=== PATIENT | male | born 1945 | race Caucasian/White ===

== ENCOUNTER → 2018-05-13 08:45 | Outpatient (CLI) | payer MEDICARE, SELFPAY ==
[2018-05-13 09:37] LABS: Appearance Urine UA CLEAR; Bilirubin Urine UA NEGATIVE (NEGATIVE); Color Urine UA YELLOW; Glucose Urine UA NEGATIVE (Negative); Ketones Urine UA NEGATIVE (NEGATIVE); Leukocyte Esterase Urine UA NEGATIVE (NEGATIVE); Nitrite Urine UA NEGATIVE (Negative); Occult Blood Urine UA TRACE-INTACT (Negative); Protein Urine UA NEGATIVE (Negative); Specific Gravity Urine UA >=1.030 (1.000-1.035); Urobilinogen Urine UA 0.2 E.U./dL (0.2)
[2018-05-13 10:02] LABS: Alanine Aminotransferase 45 IU/L (21-72); Albumin 4.3 g/dL (3.5-5.0); Albumin Globulin Ratio 1.6 (1.0-2.8); Alkaline Phosphatase 59 U/L (38-126); Aspartate Aminotransferase 20 IU/L (17-59); Bilirubin Total 1.2 mg/dL (0.2-1.3); Blood Urea Nitrogen 20 mg/dL (9-20); Calcium 9.3 mg/dL (8.4-10.2); Carbon Dioxide 26 mmol/L (22-32); Chloride 103 mmol/L (98-107); Cholesterol 144 mg/dL (140-199); Estimated Glomerular Filt Rate > 60.0 mL/min (>60); Globulin 2.7 g/dL (1.7-4.1); Glucose 137 mg/dL (80-110); HDL Cholesterol 39 mg/dL (40-60); HEMOLYSIS < 15 (0-50); LDL Cholesterol Calculated 51 mg/dL (<100); Sodium 139 mmol/L (137-145); Triglycerides 269 mg/dL (35-150)
[2018-05-13 10:29] LABS: Thyroid Stimulating Hormone 1.27 uIU/mL (0.47-4.68)
== END ==
PROVIDERS: PCP Family Medicine; Visit Provider Family Medicine
DX: I10 Essential (primary) hypertension (principal); E78.5 Hyperlipidemia, unspecified; E11.9 Type 2 diabetes mellitus without complications; Z12.5 Encounter for screening for malignant neoplasm of prostate
CPT/HCPCS: 36415; 80053; 80061; 81003; 83036; 84153; 84443

== ENCOUNTER → 2019-01-24 10:43 | Outpatient (CLI) | payer MEDICARE, SELFPAY ==
[2019-01-24 11:11] LABS: Add Manual Diff / Slide Review NO; Basophils Absolute Auto 100 /uL (0-100); Basophils Percent Auto 1.4 % (0-2); Eosinophils Absolute Auto 100 /uL (0-450); Hematocrit 45.7 % (41-53); Hemoglobin 15.9 g/dL (13.5-17.5); Lymphocytes Absolute Auto 1600 /uL (1100-4500); Lymphocytes Percent Auto 35.1 % (25-40); Mean Corpuscular HGB Conc 34.8 % (30-36); Mean Corpuscular Hemoglobin 31.9 PG (26-34); Mean Corpuscular Volume 91.9 fL (80-100); Monocytes Absolute Auto 300 /uL (0-900); Monocytes Percent Auto 7.6 % (3-14); Neutrophils Absolute Auto 2400 /uL (1500-7000); Neutrophils Percent Auto 52.9 % (50-75); Platelet Count 151 X10^3/uL (150-400); Red Blood Cell Count 4.98 X10^6/uL (4.5-5.9); Red Cell Distribution Width 12.9 % (11.6-14.8); White Blood Cell Count 4.6 X10^3/uL (4.5-11.0)
[2019-01-24 11:25] LABS: Alanine Aminotransferase 38 IU/L (21-72); Albumin 4.4 g/dL (3.5-5.0); Albumin Globulin Ratio 1.5 (1.0-2.8); Alkaline Phosphatase 66 U/L (38-126); Aspartate Aminotransferase 27 IU/L (17-59); BUN Creatinine Ratio 17.5 (6-22); Bilirubin Total 1.1 mg/dL (0.2-1.3); Blood Urea Nitrogen 21 mg/dL (9-20); Calcium 9.5 mg/dL (8.4-10.2); Carbon Dioxide 22 mmol/L (22-32); Chloride 104 mmol/L (98-107); Cholesterol 150 mg/dL (140-199); Estimated Glomerular Filt Rate 59.5 mL/min (>60); Glucose 151 mg/dL (80-110); HDL Cholesterol 39 mg/dL (40-60); HEMOLYSIS < 15 (0-50); LDL Cholesterol Calculated 55 mg/dL (<100); Potassium 4.3 mmol/L (3.4-5.1); Sodium 139 mmol/L (137-145); Total Protein 7.4 g/dL (6.3-8.2); Triglycerides 278 mg/dL (35-150)
== END ==
PROVIDERS: PCP Family Medicine; Visit Provider Family Medicine
DX: E11.9 Type 2 diabetes mellitus without complications (principal); E78.5 Hyperlipidemia, unspecified; I10 Essential (primary) hypertension
CPT/HCPCS: 36415; 80053; 80061; 83036; 85025

== ENCOUNTER → 2019-06-12 12:00 | Outpatient (CLI) | payer MEDICARE, SELFPAY ==
[2019-06-12 12:55] LABS: Add Manual Diff / Slide Review NO; Basophils Absolute Auto 100 /uL (0-100); Basophils Percent Auto 1.1 % (0-2); Eosinophils Absolute Auto 100 /uL (0-450); Eosinophils Percent Auto 2.7 % (2-4); Hematocrit 43.7 % (41-53); Hemoglobin 15.2 g/dL (13.5-17.5); Lymphocytes Absolute Auto 1500 /uL (1100-4500); Lymphocytes Percent Auto 32.1 % (25-40); Mean Corpuscular HGB Conc 34.7 % (30-36); Mean Corpuscular Hemoglobin 31.8 PG (26-34); Mean Corpuscular Volume 91.5 fL (80-100); Monocytes Absolute Auto 400 /uL (0-900); Monocytes Percent Auto 9.1 % (3-14); Neutrophils Absolute Auto 2500 /uL (1500-7000); Platelet Count 143 X10^3/uL (150-400); Red Blood Cell Count 4.78 X10^6/uL (4.5-5.9); Red Cell Distribution Width 12.9 % (11.6-14.8); White Blood Cell Count 4.6 X10^3/uL (4.5-11.0)
[2019-06-12 13:22] LABS: Alanine Aminotransferase 29 IU/L (<50); Albumin 4.5 g/dL (3.5-5.0); Albumin Globulin Ratio 1.5 (1.0-2.8); Alkaline Phosphatase 61 U/L (38-126); Aspartate Aminotransferase 25 IU/L (17-59); BUN Creatinine Ratio 16.4 (6-22); Blood Urea Nitrogen 18 mg/dL (9-20); Calcium 9.6 mg/dL (8.4-10.2); Carbon Dioxide 26 mmol/L (22-32); Chloride 107 mmol/L (98-107); Cholesterol 145 mg/dL (140-199); Estimated Glomerular Filt Rate > 60.0 mL/min (>60); Globulin 3.1 g/dL (1.7-4.1); Glucose 130 mg/dL (80-110); HDL Cholesterol 38 mg/dL (40-60); HEMOLYSIS < 15 (0-50); LDL Cholesterol Calculated 64 mg/dL (<100); Potassium 4.5 mmol/L (3.4-5.1); Sodium 143 mmol/L (137-145); Total Protein 7.6 g/dL (6.3-8.2); Triglycerides 217 mg/dL (35-150)
[2019-06-12 13:45] LABS: Hemoglobin A1C% w Est Avg Glu 6.3 % (4.0-6.0)
== END ==
PROVIDERS: PCP Family Medicine; Referring Provider Family Medicine; Visit Provider Family Medicine
DX: E11.9 Type 2 diabetes mellitus without complications (principal); E78.5 Hyperlipidemia, unspecified; I10 Essential (primary) hypertension
CPT/HCPCS: 36415; 80053; 80061; 83036; 85025

== ENCOUNTER → 2019-10-26 10:08 | Outpatient (CLI) | payer MEDICARE, SELFPAY ==
[2019-10-26 11:29] LABS: Add Manual Diff / Slide Review NO; Basophils Absolute Auto 100 /uL (0-100); Basophils Percent Auto 1.7 % (0-2); Eosinophils Absolute Auto 200 /uL (0-450); Eosinophils Percent Auto 3.6 % (2-4); Hematocrit 45.3 % (41-53); Hemoglobin 15.4 g/dL (13.5-17.5); Lymphocytes Absolute Auto 1900 /uL (1100-4500); Lymphocytes Percent Auto 32.7 % (25-40); Mean Corpuscular HGB Conc 33.9 % (30-36); Mean Corpuscular Hemoglobin 31.4 PG (26-34); Mean Corpuscular Volume 92.6 fL (80-100); Monocytes Absolute Auto 500 /uL (0-900); Monocytes Percent Auto 9.5 % (3-14); Neutrophils Absolute Auto 3000 /uL (1500-7000); Neutrophils Percent Auto 52.5 % (50-75); Platelet Count 158 X10^3/uL (150-400); Red Blood Cell Count 4.89 X10^6/uL (4.5-5.9); White Blood Cell Count 5.7 X10^3/uL (4.5-11.0)
[2019-10-26 11:30] LABS: Hemoglobin A1C% w Est Avg Glu 6.7 % (4.0-6.0)
[2019-10-26 11:56] LABS: Creatinine Urine Random 262.8 mg/dL
[2019-10-26 12:00] LABS: Alanine Aminotransferase 30 IU/L (<50); Albumin 4.4 g/dL (3.5-5.0); Albumin Globulin Ratio 1.5 (1.0-2.8); Alkaline Phosphatase 62 U/L (38-126); Aspartate Aminotransferase 24 IU/L (17-59); BUN Creatinine Ratio 20.8 (6-22); Bilirubin Total 0.9 mg/dL (0.2-1.3); Blood Urea Nitrogen 26 mg/dL (9-20); Calcium 9.6 mg/dL (8.4-10.2); Carbon Dioxide 26 mmol/L (22-32); Chloride 102 mmol/L (98-107); Cholesterol 177 mg/dL (140-199); Estimated Glomerular Filt Rate 56.8 mL/min (>60); Globulin 2.9 g/dL (1.7-4.1); Glucose 164 mg/dL (80-110); HDL Cholesterol 35 mg/dL (40-60); HEMOLYSIS < 15 (0-50); LDL Cholesterol Calculated 68 mg/dL (<100); Potassium 4.4 mmol/L (3.4-5.1); Sodium 137 mmol/L (137-145); Total Protein 7.3 g/dL (6.3-8.2); Triglycerides 368 mg/dL (35-150)
[2019-10-26 12:00] LABS: Microalbumi Creatinin Ratio Ur 3.8 ug/mg CR (<30)
[2019-10-26 12:56] LABS: Thyroid Stimulating Hormone 1.44 uIU/mL (0.47-4.68)
== END ==
PROVIDERS: PCP Family Medicine; Referring Provider Family Medicine; Visit Provider Family Medicine
DX: Z12.11 Encounter for screening for malignant neoplasm of colon (principal); Z13.29 Encounter for screening for other suspected endocrine disorder; E11.9 Type 2 diabetes mellitus without complications; E78.5 Hyperlipidemia, unspecified; I10 Essential (primary) hypertension
CPT/HCPCS: 36415; 80053; 80061; 82043; 82570; 83036; 84443; 85025

== ENCOUNTER → 2020-02-06 10:08 | Outpatient (CLI) | payer MEDICARE, SELFPAY ==
[2020-02-06 11:55] LABS: Add Manual Diff / Slide Review NO; Basophils Absolute Auto 100 /uL (0-100); Basophils Percent Auto 1.3 % (0-2); Eosinophils Absolute Auto 200 /uL (0-450); Eosinophils Percent Auto 4.5 % (2-4); Hematocrit 43.8 % (41-53); Hemoglobin 15.1 g/dL (13.5-17.5); Lymphocytes Absolute Auto 1400 /uL (1100-4500); Lymphocytes Percent Auto 25.8 % (25-40); Mean Corpuscular HGB Conc 34.5 % (30-36); Mean Corpuscular Hemoglobin 31.7 PG (26-34); Mean Corpuscular Volume 91.8 fL (80-100); Monocytes Absolute Auto 500 /uL (0-900); Monocytes Percent Auto 9.4 % (3-14); Neutrophils Absolute Auto 3100 /uL (1500-7000); Platelet Count 152 X10^3/uL (150-400); Red Blood Cell Count 4.77 X10^6/uL (4.5-5.9); White Blood Cell Count 5.3 X10^3/uL (4.5-11.0)
[2020-02-06 12:25] LABS: BUN Creatinine Ratio 16.8 (6-22); Blood Urea Nitrogen 18 mg/dL (9-20); Calcium 8.9 mg/dL (8.4-10.2); Carbon Dioxide 27 mmol/L (22-32); Chloride 106 mmol/L (98-107); Estimated Glomerular Filt Rate > 60.0 mL/min (>60); Glucose 148 mg/dL (80-110); HEMOLYSIS < 15 (0-50); Magnesium 2.2 mg/dL (1.6-2.3); Potassium 4.3 mmol/L (3.4-5.1); Sodium 139 mmol/L (137-145)
== END ==
PROVIDERS: PCP Family Medicine; Referring Provider Nurse Practitioner; Visit Provider Nurse Practitioner
DX: I10 Essential (primary) hypertension (principal); I49.9 Cardiac arrhythmia, unspecified; E78.5 Hyperlipidemia, unspecified; I49.3 Ventricular premature depolarization; R55 Syncope and collapse
CPT/HCPCS: 36415; 80048; 83735; 85025

== ENCOUNTER → 2020-03-14 13:11 | Outpatient (CLI) | payer MEDICARE, SELFPAY ==
[2020-03-14 14:01] LABS: COVID19 -Nasal RAPID Negative (Negative)
== END ==
PROVIDERS: PCP Family Medicine; Visit Provider Physician Assistant
DX: Z11.59 Encounter for screening for other viral diseases (principal)
CPT/HCPCS: 87635

== ENCOUNTER → 2020-03-16 09:02 | Outpatient (CLI) | payer MEDICARE, SELFPAY ==
--- NOTE | 2020-03-16 | DI.ECHO.S_ITS ---
[facility] +---------+ [facility] +---------+ : : [address] : : : : [id number] : : : : Phone: [phone]+ Echocardiogram Report + + :Name: TACHO JOHNSON Study Date: 03/16/2020 Height: 70 in : :[facility] Weight: 224 lb: : Gender: Male BSA: 2.2 m2 : :: 1945 Age: 74 yrs : :Reason For Study: HYPERTENSION : :Ordering Physician: JUAN, : :MADELINE BOLIVAR Performed By: Kaylee Hatch : :Referring: MADELINE MARTINEZ : + + Interpretation Summary The patient was in normal sinus rhythm during the exam. The patient had frequent PVCs during the exam. Intermittent run of nonsustained ventricular tachycardia. The left ventricle is normal in size and wall thickness. The ejection fraction is estimated to be 50-55%. There is a significant dyssynchronous contraction pattern, consistent with a conduction abnormality. The right ventricle is grossly normal size. Right ventricular systolic function is at the lower limits of normal. No significant valvular pathology seen. Procedure: A two-dimensional transthoracic echocardiogram with color flow and Doppler was performed. The study quality was technically adequate. Comparison is made with the echocardiogram of 08/12/2011. The patient had frequent PVCs during the exam. The heart rate ranged between 69-78 bpm during the study. The patient was in normal sinus rhythm during the exam. Intermittent run of nonsustained ventricular tachycardia. Left Ventricle: The left ventricle is normal in size and wall thickness. There is no thrombus. The ejection fraction is estimated to be 50-55%. There is a significant dyssynchronous contraction pattern, consistent with a conduction abnormality. Diastolic parameters suggest a relaxation abnormality of the left ventricle, consistent with probable normal filling pressures. Right Ventricle: The right ventricle is grossly normal size. Right ventricular systolic function is at the lower limits of normal. Atria: The left atrial size is normal. Right atrial size is normal. There is no Doppler evidence for an interatrial shunt. Mitral Valve: The mitral valve is normal in structure and function. There is trace mitral regurgitation. Aortic Valve: The aortic valve is trileaflet. The aortic valve opens well. There is no aortic valve stenosis. No aortic regurgitation is present. Tricuspid Valve: The tricuspid valve is normal in structure and function. Pulmonary artery pressures cannot be estimated because of the lack of a measurable TR jet velocity but the IVC suggests a CVP of around 8 mmHg. There is a trace or physiologic amount of tricuspid regurgitation. Pulmonic Valve: The pulmonic valve is not well seen, but is grossly normal. There is trace pulmonic regurgitation. Great Vessels: The aortic root is normal size. The ascending aorta is at the upper limits of normal in size. The IVC is dilated (diameter is greater than 2.1 cm) yet it collapses greater than 50% with a sniff. This suggests a right atrial pressure of 8 mm Hg. Pericardium/ Pleura There is no pericardial effusion. There is no pleural effusion. MMode/2D Measurements & Calculations LVIDd: 5.2 cm LVOT diam: 2.5 cm LVIDs: 3.7 cm Ao root diam: 4.0 cm FS: 29.7 % asc Aorta Diam: 3.7 cm EPSS: 1.2 cm IVSd: 1.00 cm LVPWd: 1.3 cm LV rankin. diameter/BSA (cm/m^2): 2.4 LV sys. diameter/BSA (cm/m^2): 1.7 LA A2 area: 22.1 cm2 RA long axis: 5.6 cm LA A4 area: 20.9 cm2 RA area: 19.5 cm2 LA length (vol): 5.9 cm RA vol: 57.4 ml LA vol: 67.2 ml RA : 26.2 ml/m2 LA vol index: 30.7 ml/m2 IVC diam: 2.2 cm RVD1 (basal): 3.3 cm TAPSE: 1.7 cm Doppler Measurements & Calculations Ao V2 max: 146.0 cm/sec MV E max leonidas: 56.5 cm/sec Ao V2 mean: 87.4 cm/sec MV A max leonidas: 93.2 cm/sec Ao max P.6 mmHg MV E/A: 0.61 Ao mean P.7 mmHg Med Peak E' Leonidas: 6.9 cm/sec Ao V2 VTI: 31.6 cm E/E' med: 8.2 Lat Peak E' Leonidas: 8.3 cm/sec E/E' lat: 6.8 E/e' average: 7.5 MV dec time: 0.27 sec TR max leonidas: 214.0 cm/sec TR max P.3 mmHg PA V2 max: 64.5 cm/sec PA V2 mean: 41.3 cm/sec PA mean P.81 mmHg PA pr(Accel): 7.1 mmHg Reading Physician:06:27 PM
--- NOTE | 2020-03-16 20:42 | DI.NM.S_ITS ---
DATE OF SERVICE: 03/16/2020 PROCEDURE: Exercise perfusion study. INDICATIONS: PVCs. Hypertension. RADIOPHARMACEUTICAL: 27.1 millicurie technetium-99m Myoview IV was injected at rest and 14.6 millicurie technetium-99m Myoview IV was injected at rest. CARDIAC STRESS: The patient underwent exercise perfusion study under the supervision of attending staff. He walked on Jagdish protocol for 4 minutes 32 seconds, achieved normal blood pressure response and maximum target heart rate 121 percent. Baseline rhythm was sinus with frequent PVCs, including trigeminy pattern. During exercise, the patient developed frequent nonsustained ventricular tachycardia up to 9 beats, hence, exercise stress test was discontinued. He also had chest pressure on a scale of 1-10, 2 in intensity in early recovery, which got resolved around 3 minutes in the recovery. There were no obvious ischemic EKG changes. No syncope or dizziness. RAW DATA: There is increased subdiaphragmatic activity. GATED STUDY: LV ejection fraction 49 percent without any obvious regional wall motion abnormalities. Stress end-diastolic volume 115 mL. Resting end- diastolic volume was not accurate. Lung/heart ratio 0.35, which is within normal limits. The patient achieved 7 METs of workload. PERFUSION SCAN: Stress supine, resting supine and stress prone images were compared to each other. Stress supine and resting supine images revealed a small to moderate size mildly decreased perfusion of inferior wall extending into the inferoapex and distal inferolateral wall. During prone images, the above-mentioned defects got significantly improved. However, remaining have small perfusion defect in the distal inferolateral wall. No obvious reversible ischemia. CONCLUSION: There is no obvious reversible ischemic ischemia. There is significant diaphragmatic tissue attenuation artifact, which got resolved during prone images. However, prone images remaining have a small area of perfusion defect in the distal inferolateral wall. This could be due to persistent tissue attenuation artifact, however, a small distal inferolateral infarction cannot be ruled out. The patient has frequent nonsustained ventricular tachycardia during exercise and there were monomorphic. The patient had a perfusion study in July,, at that time there was complete resolution of inferior wall defect. Lisandro Smith - [place] doc#: [id number]/job#: [id number] dd: 03/16/2020 17:33:00 dt: 03/16/2020 20:20:00 DICTATING MD/COPIES TO: Pratima Darling MD; Vaishali Lopez M.D. COPIES MNE: ANTHONY;
== END ==
PROVIDERS: PCP Family Medicine; Referring Provider Nurse Practitioner; Visit Provider Nurse Practitioner
DX: I49.3 Ventricular premature depolarization (principal); I10 Essential (primary) hypertension; E78.5 Hyperlipidemia, unspecified; R55 Syncope and collapse
CPT/HCPCS: 78452; 93017; 93306; A9502

== ENCOUNTER → 2020-03-25 08:36 | Outpatient (CLI) | payer MEDICARE, SELFPAY ==
[2020-03-25 09:16] LABS: Add Manual Diff / Slide Review NO; Basophils Absolute Auto 100 /uL (0-100); Basophils Percent Auto 0.7 % (0-2); Eosinophils Absolute Auto 200 /uL (0-450); Eosinophils Percent Auto 1.8 % (2-4); Hematocrit 41.9 % (41-53); Hemoglobin 14.4 g/dL (13.5-17.5); Lymphocytes Absolute Auto 1400 /uL (1100-4500); Lymphocytes Percent Auto 15.7 % (25-40); Mean Corpuscular HGB Conc 34.4 % (30-36); Mean Corpuscular Hemoglobin 31.9 PG (26-34); Mean Corpuscular Volume 92.9 fL (80-100); Monocytes Absolute Auto 800 /uL (0-900); Monocytes Percent Auto 8.8 % (3-14); Neutrophils Absolute Auto 6500 /uL (1500-7000); Platelet Count 141 X10^3/uL (150-400); Red Blood Cell Count 4.52 X10^6/uL (4.5-5.9); Red Cell Distribution Width 12.7 % (11.6-14.8); White Blood Cell Count 8.9 X10^3/uL (4.5-11.0)
[2020-03-25 09:26] LABS: Prothrombin Time 11.8 SECONDS (10.1-12.7)
[2020-03-25 10:10] LABS: Thyroid Stimulating Hormone 0.929 uIU/mL (0.47-4.68)
== END ==
PROVIDERS: PCP Family Medicine; Referring Provider Nurse Practitioner; Visit Provider Nurse Practitioner
DX: I49.3 Ventricular premature depolarization (principal); I10 Essential (primary) hypertension
CPT/HCPCS: 36415; 84443; 85025; 85610

== ENCOUNTER → 2020-04-06 10:59 | Outpatient (CLI) | payer MEDICARE, SELFPAY ==
[2020-04-06 12:27] LABS: COVID19 -Nasal RAPID Negative (Negative)
== END ==
PROVIDERS: PCP Family Medicine; Visit Provider Physician Assistant
DX: Z01.812 Encounter for preprocedural laboratory examination (principal); Z20.828 Contact with and (suspected) exposure to other viral communicable diseases
CPT/HCPCS: 87635; C9803

== ENCOUNTER → 2020-05-19 12:22 | Outpatient (CLI) | payer MEDICARE, SELFPAY ==
[2020-05-19] MEDS: COVID-19 VACC #1, MRNA(MOD) 100 MCG/0.5 ML VIAL IM (12:26)
--- OUTSIDE RECORDS SUMMARY | 2020-05-31 16:34 | XMS_ITS | Referral Summary ---
:1945 Author Organization [facility] Address [address] [place] [id number] Care Team Providers Name Role Phone Ramirez, T DO Primary Care Provider Reason for Referral Consultation (Routine) Status Reason Specialty Diagnoses / Referred By Referred To Procedures Contact Contact Closed Specialty Sleep Medicine Diagnoses NIESHA (obstructive sleep apnea) [facility] Services OSMEL Sarmiento [address] [place] [address] [address] [id number] [place], [place] Phone: [phone] Diagnostic Imaging (Routine) Status Reason Specialty Diagnoses / Referred By Referred To Procedures Contact Contact Closed Specialty Diagnoses Essential hypertension Hyperlipidemia, unspecified hyperlipidemia type PVC (premature ventricular contraction) Near syncope [facility] Services Required Procedures NM CARDIAC STRESS TEST EXERCISE OSMEL Sarmiento [address] [place] [address] [address] [id number] [place], [place] Phone: [phone] Diagnostic Imaging (Routine) Status Reason Specialty Diagnoses / Procedures Referred By Trena white To Contact Contact Closed Diagnoses Essential hypertension Hyperlipidemia, unspecified hyperlipidemia type PVC (premature ventricular contraction) Near syncope [facility] Procedures ECHOCARDIOGRAM OSMEL CAT [address] [place] [address] [address] [id number] [place], [place] Phone: [phone] (Routine) Status Reason Specialty Diagnoses / Referred By Referred To Procedures Contact Contact Incomplete Diagnoses PVC (premature ventricular contraction) Madeline Martinez Procedures ZIO Patch - 14 Day Placed During Visit OSMEL Pop [address] [place] [place] [address] [place] [address] Reason for Visit Reason Comments Hyperlipidemia Hypertension Dizziness Palpitations Encounter Details Date Type Department Care Team Description 02/02/2020 Office Visit [facility] Christian Le MD [address] [place] [address] [address] [place] [address] Dizziness (Primary Dx); Clinics Cardiology Pratima Darling MD [facility] [address] [place] [address] [address] [place] [address] PVC (premature ventricular contraction); [facility] Essential hypertension; [address], [address] Hyperli pidemia, unspecified hyperlipidemia type; D Near syncope; [facility] [place] Mixed hyperlip idemia; [address] NIESHA (obstructive sleep apnea ); [phone] Palpitations Allergies No Known Allergiesdocumented as of this encounter (statuses as of 02/15/2020) Medications Medication Sig Dispensed Refills Start Date End Date Status gabapentin (NEURONTIN) Take 600 mg by 0 Active 600 mg tablet mouth daily simvastatin (ZOCOR) 20 0 12/02/2019 Active mg tablet tamsulosin (FLOMAX) Take 0.4 mg by 0 12/02/2019 Active 0.4 mg capsule mouth daily HYDROcodone-acetaminop Take 0.5 tablets 0 10/26/2014 Active hen (NORCO) 5-325 mg by mouth as needed lisinopriL (PRINIVIL) 5 mg daily 0 01/23/2020 Active 5 mg tablet metoprolol succinate 25 mg daily 0 10/26/2019 Active XL (TOPROL-XL) 25 mg 24 hr tablet acetaminophen/diphenhy Take 1 tablet by 0 Active dramine (TYLENOL PM mouth nightly EXTRA STRENGTH ORAL) documented as of this encounter (statuses as of 02/15/2020) Active Problems Problem Noted Date Mixed hyperlipidemia 02/02/2020 Essential hypertension 02/02/2020 PVC (premature ventricular contraction) 02/02/2020 Near syncope 02/02/2020 Dizziness 02/02/2020 Sleep apnea 02/02/2020 documented as of this encounter (statuses as of 02/15/2020) Social History Tobacco Use Types Packs/Day Years Used Date Former Smoker 05 21 1966 - 1994 Smokeless Tobacco: Never Used Alcohol Use Drinks/Week oz/Week Comments Yes Alcohol Habits Answer Date Recorded How often do you have a drink containing alcohol? 2-4 times a month 02/02/2020 How many drinks containing alcohol do you have on a 1 or 2 02/02/2020 typical day when you are drinking? How often do you have six or more drinks on one Not asked 02/02/2020 occasion? Sex Assigned at Date Recorded Not on file documented as of this encounter Last Filed Vital Signs Vital Sign Reading Time Taken Comments Blood Pressure 130/64 02/02/2020 9:57 AM PDT Pulse 75 02/02/2020 9:44 AM PDT Temperature - - Respiratory Rate - - Oxygen Saturation - - Inhaled Oxygen Concentration - - Weight 105 kg (230 lb 6.4 oz) 02/02/2020 9:44 AM PDT Height 180.3 cm (5' 11) 02/02/2020 9:44 AM PDT Body Mass Index 32.13 02/02/2020 9:44 AM PDT documented in this encounter Patient Instructions Patient InstructionsLoMadeline bruner ARNP - 02/02/2020 10:00 AM PDT1. We will schedule you for an exercise stress test, an echocardiogram and a 14 day heart monitor, please stop taking your metoprolol 24 hours before your stress test. 2. Please get labs done within the week. documented in this encounter Progress Notes Pratima Darling MD - 02/02/2020 10:00 AM PDT Subjective Patient ID: Lisandro Smith is a 74 y.o. male that had concerns including Hyperlipidemia, Hypertension, Dizziness, and Palpitations. HPI: This is a pleasant, 74-year-old male with history of essential hypertension, obstructive sleep apneabut not using CPAP, HLD, who presents after having a heart rate of 43 at his primary care's office 10/26/19. Patient reports that in 2012 he was at work, had a near syncopal episode with extreme dizziness. He then went to [facility] ER where he was told he had an irregular heartbeat and was given metoprolol succinate 50 mg he was taking that until the episode at his primary care's office when it was reduced to 25 mg. He states that once he started taking metoprolol the dizziness happened muchmore infrequently. Patient has started to have a reoccurrence of more frequent presyncopal episodeswith dizziness, lightheadedness and palpitations. These events can happen while seated or standing but do not seem to be precipitated by any exertional activity.Other than these events, patient has had no other cardiac symptoms and has never had a cardiac work-up. Patient denies chest pain, shortness of breath, decrease in daily activities, caffeine intake or edema. Patient drinks very minimally, 4 glasses of wine per month and admits to sleep apnea but does not like to wear his CPAP. Labs 10/26/2019 hemoglobin 15.4, hematocrit 45.3, platelets 158, sodium 137, potassium 4.4, BUN 26, creatinine 1.25, GFR 56.8, glucose 164, A1c 6.7, AST 24, ALT 30, alk phos 62, total cholesterol 177, HDL 35, LDL 68, triglycerides 368 EKG 02/02/20 Sinus Rhythm -with ectopic ventricular couplets Frequent PVCs which appears to be monomorphic, some repolarization changes, QTC 4 2 2 ms. Past Medical History: Diagnosis Date ??? Bradycardia ??? Dizziness 02/02/2020 ??? Essential hypertension ??? Mixed hyperlipidemia 02/02/2020 ??? MS (multiple sclerosis) ([facility] ??? Near syncope ??? Sleep apnea 02/02/2020 ??? Sleep apnea Past Surgical History: Procedure Laterality Date ??? BLADDER SURGERY Family History Problem Relation Age of Onset ??? Stroke Mother ??? No Known Problems Father Social History Socioeconomic History ??? Marital status: Spouse name: Not on file ??? Number of children: Not on file ??? Years of education: Not on file ??? Highest education level: Not on file Occupational History ??? Not on file Social Needs ??? Financial resource strain: Not on file ??? Food insecurity Worry: Not on file Inability: Not on file ??? Transportation needs Medical: Not on file Non-medical: Not on file Tobacco Use ??? Smoking status: Former Smoker Packs/day: 1.00 Years: 30.00 Pack years: 30.00 Start date: 1966 Quit date: 1994 Years since quittin.8 ??? Smokeless tobacco: Never Used Substance and Sexual Activity ??? Alcohol use: Yes Frequency: 2-4 times a month Drinks per session: 1 or 2 ??? Drug use: Not Currently ??? Sexual activity: Not on file Lifestyle ??? Physical activity Days per week: Not on file Minutes per session: Not on file ??? Stress: Not on file Relationships ??? Social connections Talks on phone: Not on file Gets together: Not on file Attends pentecostal service: Not on file Active member of club or organization: Not on file Attends meetings of clubs or organizations: Not on file Relationship status: Not on file Other Topics Concern ??? Not on file Social History Narrative ??? Not on file No Known Allergies Current Medication List Sig acetaminophen/diphenhydramine (TYLENOL PM EXTRA STRENGTH ORAL) Take 1 tablet by mouth nightly gabapentin (NEURONTIN) 600 mg tablet Take 600 mg by mouth daily HYDROcodone-acetaminophen (NORCO) 5-325 mg Take 0.5 tablets by mouth as needed lisinopriL (PRINIVIL) 5 mg tablet 5 mg daily metoprolol succinate XL (TOPROL-XL) 25 mg 24 hr tablet 25 mg daily simvastatin (ZOCOR) 20 mg tablet tamsulosin (FLOMAX) 0.4 mg capsule Take 0.4 mg by mouth daily Review of Systems Constitutional: Negative for fatigue and unexpected weight change. Eyes: Negative for visual disturbance. Respiratory: Negative for shortness of breath. Cardiovascular: Positive for palpitations. Negative for chest pain and leg swelling. Gastrointestinal: Negative for blood in stool. Endocrine: Negative for polydipsia. Genitourinary: Negative for hematuria. Musculoskeletal: Negative for myalgias. Skin: Negative for rash. Neurological: Positive for dizziness. Hematological: Bruises/bleeds easily. Psychiatric/Behavioral: The patient is not nervous/anxious. Objective BP 130/64 (BP Location: Right arm, Patient Position: Sitting) Pulse 75 Ht 1.803 m Wt 105 kg BMI 32.13 kg/m?? Physical Exam: General Appearance: Obese, pleasant, cooperative, no apparent distress HENT: No obvious jaundice, no xanthelasma Neck: No obvious JVD Respiratory: clear to auscultation and percussion, no rales or wheeze Cardiovascular: Intermittently irregular rhythm, S1-S2 normal, no S3 no S4, no murmur no significant murmur Pulses: No carotid bruit, no obvious abdominal bruit, no evidence of critical limb ischemia Abdomen: Nontender, no hepatosplenomegaly, no obvious pulsatile mass Extremities: No clubbing, cyanosis or edema Neuro: Alert oriented to time place and person, no obvious motor or sensory deficit. Psych: Appropriate affect, normal mentation and memory Skin: No gangrene or ulcer Assessment/Plan Diagnoses and all orders for this visit: Dizziness PVC (premature ventricular contraction) - CBC Expected Today; Future - Basic Metabolic Panel Expires 12 Months; Future - Magnesium Expires 12 Months; Future - ZIO Patch - 14 Day Placed During Visit; Future - ECHOCARDIOGRAM COMPLETE; Future - NM CARDIAC STRESS TEST EXERCISE; Future Essential hypertension - ECG 12 Lead (Clinic - Same Day) - CBC Expected Today; Future - Basic Metabolic Panel Expires 12 Months; Future - Magnesium Expires 12 Months; Future - ECHOCARDIOGRAM COMPLETE; Future - NM CARDIAC STRESS TEST EXERCISE; Future Hyperlipidemia, unspecified hyperlipidemia type - CBC Expected Today; Future - Basic Metabolic Panel Expires 12 Months; Future - Magnesium Expires 12 Months; Future - ECHOCARDIOGRAM COMPLETE; Future - NM CARDIAC STRESS TEST EXERCISE; Future Near syncope - CBC Expected Today; Future - Basic Metabolic Panel Expires 12 Months; Future - Magnesium Expires 12 Months; Future - ECHOCARDIOGRAM COMPLETE; Future - NM CARDIAC STRESS TEST EXERCISE; Future Mixed hyperlipidemia NIESHA (obstructive sleep apnea) - XTRNL Referral to Sleep Medicine Palpitations Assessment/Plan Comments: Patient has recurrent dizziness episode from last 4 years. He has frequent monomorphic PVCs as wellas ventricular couplets. No previous history of myocardial infarction. Denies any excessive alcohol intake or caffeine intake. He has sleep apnea but not using CPAP. Clinically appears compensated. Used to take metoprolol succinate 50 mg daily which was decreased by PCP because of slow heart ratehowever it was not measured manually or EKG was not done. It was based on pulse oximetry result. During PVCs, pulse oximetry calculated heart rate may not be accurate. At this point of time will provide him prolonged Holter monitor to quantify PVCs burden and make sure there is no underlying ventricular tachycardia. Echocardiogram to rule out structural heart disease. Exercise perfusion study for CAD diagnosis and risk stratification. We will also check magnesium. Patient to use CPAP. Different triggers discussed. Follow-up after that tests. We will also check for orthostasis. In the inte rim, if patient develops worsening of cardiovascular symptoms, advised to call us. I have obtained and documented the patient's history and reviewed/discussed with Dr. Darling. -- Madeline BOLIVAR ATTENDING ADDENDUM: MADELINE MARTINEZ, was present during parts of the visit with the patient and myself, to obtain preliminary history and to familiarize with the Plan of Care (POC) and Medical Decision Making (MDM) for any possible future visits and care. I performed a full history, physical exam, and MDM and then developed POC with the note as above along with my edits This note was generated utilizing voice recognition software. While attempts have been made to correct mistakes, common errors may occur, including substitution of words that sound phonetically similar to the intended word as well as random substitution errors. Please take this into consideration and use clinical context when necessary. Electronically signed by Pratima Darling MD 02/02/2020 11:11 AM documented in this encounter Plan of Treatment Upcoming Encounters Date Type Specialty Care Team Description 02/23/2020 Device Monitoring Cardiology 03/23/2020 Office Visit Cardiology Pratima Darling MD [address] [place] [address] Scheduled Orders Name Type Priority Associated Diagnoses Order S chedule CBC Expected Today Lab Routine Essential Expected: hypertension 02/02/2020, Hyperlipidemia, Expires: unspecified 02/01/2021 hyperlipidemia t ype PVC (premature ventricular contraction) Near syncope Basic Metabolic Panel Lab Routine Essential Expect ed: Expires 12 Months hypertension 02/02/2020, Hyperlipidemia, Expires: unspecified 02/01/2021 hyperlipidemia t ype PVC (premature ventricular contraction) Near syncope Magnesium Expires 12 Lab Routine Essential Expecte d: Months hypertension 02/02/2020, Hyperlipidemia, Expires: unspecified 02/01/2021 hyperlipidemia t ype PVC (premature ventricular contraction) Near syncope ZIO Patch - 14 Day Cardiac Routine PVC (premature 1 Occur rences Placed During Visit Services ventricular starting contraction) 02/02/2020 unti l 02/01/2022 ECHOCARDIOGRAM Imaging Routine Essential Expected: COMPLETE hypertension 02/02/2020, Hyperlipidemia, Expires: unspecified 02/01/2022 hyperlipidemia t ype PVC (premature ventricular contraction) Near syncope NM CARDIAC STRESS TEST Imaging Routine Essential Expec garrett: EXERCISE hypertension 02/02/2020, Hyperlipidemia, Expires: unspecified 05/04/2021 hyperlipidemia t ype PVC (premature ventricular contraction) Near syncope Scheduled Referrals Name Type Priority Associated Diagnoses Order S chedule XTRNL Referral to Outpatient Referral Routine NIESHA (obstructive Ordered: Sleep Medicine sleep apnea) 02/02/2020 documented as of this encounter Procedures Procedure Name Priority Date/Time Associated Diagnosis Comme nts ECG 12-LEAD Routine 02/02/2020 12:48 PM Essential hypertensio n Results for this PDT procedure are i n the results section. documented in this encounter Results ECG 12 Lead (Clinic - Same Day) (02/02/2020 12:48 PM PDT) Narrative Performed At This result has an attachment that is no t available. 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
== END ==
PROVIDERS: PCP Family Medicine; Visit Provider Internal Medicine
DX: Z23 Encounter for immunization (principal)
CPT/HCPCS: 0011A; 91301

== ENCOUNTER → 2020-06-11 10:02 | Outpatient (CLI) | payer MEDICARE, SELFPAY ==
[2020-06-11 11:07] LABS: Magnesium 2.1 mg/dL (1.6-2.3)
== END ==
PROVIDERS: PCP Family Medicine; Referring Provider Internal Medicine Cardiovascular Disease; Visit Provider Internal Medicine Cardiovascular Disease
DX: I10 Essential (primary) hypertension (principal)
CPT/HCPCS: 36415; 83735; 84443

== ENCOUNTER → 2020-06-16 11:53 | Outpatient (CLI) | payer MEDICARE, SELFPAY ==
[2020-06-16] MEDS: COVID-19 VACC #2, MRNA(MOD) 100 MCG/0.5 ML VIAL IM (12:07)
--- OUTSIDE RECORDS SUMMARY | 2020-07-08 08:10 | XMS_ITS | Referral Summary ---
:1945 Author Organization [facility] Address [address] [place] [id number] Care Team Providers Name Role Phone Ramirez, T DO Primary Care Provider Reason for Referral Consultation (Routine) Status Reason Specialty Diagnoses / Referred By Referred To Procedures Contact Contact Closed Specialty Sleep Medicine Diagnoses NIESHA (obstructive sleep apnea) [facility] Services OSMEL Sarmiento [address] [place] [address] [address] [id number] [place], [place] Phone: [phone] Diagnostic Imaging (Routine) Status Reason Specialty Diagnoses / Referred By Referred To Procedures Contact Contact Closed Specialty Diagnoses Essential hypertension Hyperlipidemia, unspecified hyperlipidemia type PVC (premature ventricular contraction) Near syncope [facility] Services Required Procedures NM CARDIAC STRESS TEST EXERCISE OSMEL Sarmiento [address] [place] [address] [address] [id number] [place], [place] Phone: [phone] Diagnostic Imaging (Routine) Status Reason Specialty Diagnoses / Procedures Referred By Trena white To Contact Contact Closed Diagnoses Essential hypertension Hyperlipidemia, unspecified hyperlipidemia type PVC (premature ventricular contraction) Near syncope [facility] Procedures ECHOCARDIOGRAM OSMEL CAT [address] [place] [address] [address] [id number] [place], [place] Phone: [phone] (Routine) Status Reason Specialty Diagnoses / Referred By Referred To Procedures Contact Contact Incomplete Diagnoses PVC (premature ventricular contraction) Madeline Martinez Procedures ZIO Patch - 14 Day Placed During Visit OSMEL Pop [address] [place] [address] Reason for Visit Reason Comments Hyperlipidemia Hypertension Dizziness Palpitations Encounter Details Date Type Department Care Team Description 02/02/[address] [facility] Christian Le MD [address] [place] [address] [address] [place] [address] Dizziness (Primary Dx); Clinics Cardiology Pratima Darling MD [facility] [address] [place] [address] [address] [place] [address] PVC (premature ventricular contraction); [place] Essential hypertension; [address], Suite Hyperli pidemia, unspecified hyperlipidemia type; D Near syncope; [place] Mixed hyperlip idemia; [id number] NIESHA (obstructive sleep apnea ); [phone] Palpitations Allergies No Known Allergiesdocumented as of [...] with extreme dizziness. He then went to [facility] ER where he was told he had [...] Mixed hyperlipidemia 02/02/2020 ??? MS (multiple sclerosis) ([facility]) ??? Near syncope ??? 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
== END ==
PROVIDERS: PCP Family Medicine; Visit Provider Internal Medicine
DX: Z23 Encounter for immunization (principal)
CPT/HCPCS: 0012A; 91301

== ENCOUNTER → 2020-10-01 10:04 | Outpatient (CLI) | payer MEDICARE, SELFPAY ==
--- NOTE | 2020-10-01 10:07 | DI.RAD.S_ITS ---
PROCEDURE: XR LUMBAR SPINE 2-3V INDICATIONS: Progressive lower back pain with radiculopathy TECHNIQUE: 3 views of the lumbar spine were acquired. COMPARISON: [facility], MR, L-SPINE WITHOUT CONTRAST, 03/29/2015, 15:02. [facility], CR, L-SPINE 2-3 VIEWS, 10/15/2008, 8:53. FINDINGS: Bones: 5 ata-myv-syxshor vertebrae are present. No vertebral body compression fractures. No suspicious bony lesions. Mild grade 1 anterolisthesis is seen at the L4-L5 level. Moderate disc space narrowing is seen at T12-L1, L1-L2, L4-L5, and L5-S1. Endplate irregularity and sclerosis are seen, which are worst inferiorly. Lower lumbar spine facet arthropathy is seen. Soft tissues: Overlying bowel gas pattern is normal. No suspicious soft tissue calcifications. Atherosclerotic calcification is noted. IMPRESSION: Lumbar spine degenerative changes are seen, which are worst inferiorly. Dictated by: De Torres M.D. on 10/01/2020 at 15:18 Approved by: De Torres M.D. on 10/01/2020 at 15:19
[2020-10-01 10:46] LABS: Hemoglobin A1C% w Est Avg Glu 6.5 % (4.0-6.0)
[2020-10-01 11:06] LABS: Alanine Aminotransferase 33 IU/L (<50); Albumin Globulin Ratio 1.4 (1.0-2.8); Alkaline Phosphatase 60 U/L (38-126); Aspartate Aminotransferase 23 IU/L (17-59); BUN Creatinine Ratio 18.6 (6-22); Bilirubin Total 1.2 mg/dL (0.2-1.3); Blood Urea Nitrogen 24 mg/dL (9-20); Calcium 9.2 mg/dL (8.4-10.2); Carbon Dioxide 24 mmol/L (22-32); Chloride 106 mmol/L (98-107); Estimated Glomerular Filt Rate 54.6 mL/min (>60); Globulin 2.8 g/dL (1.7-4.1); Glucose 152 mg/dL (80-110); HEMOLYSIS < 15 (0-50); Potassium 5.1 mmol/L (3.4-5.1); Sodium 139 mmol/L (137-145); Total Protein 6.8 g/dL (6.3-8.2)
[2020-10-01 11:20] LABS: Microalbumi Creatinin Ratio Ur 4.2 ug/mg CR (<30); Microalbumin Urine Random 1.3 mg/dL (0-1.6)
== END ==
PROVIDERS: PCP Family Medicine; Referring Provider Family Medicine; Visit Provider Family Medicine
DX: M48.07 Spinal stenosis, lumbosacral region (principal); E11.9 Type 2 diabetes mellitus without complications; E03.9 Hypothyroidism, unspecified
CPT/HCPCS: 36415; 72100; 80053; 82043; 82570; 83036; 84439; 84443

== ENCOUNTER → 2020-12-08 13:18 | Outpatient (CLI) | payer MEDICARE, SELFPAY ==
--- NOTE | 2020-12-08 13:19 | DI.ECHO.S_ITS ---
[place] +---------+ [facility] +---------+ : : [address] : : : : [id number] : : : : Phone: [phone]+ Echocardiogram Report + + :Name: TACHO JOHNSON Study Date: 12/08/2020 Height: 70 in : :[facility] ReadingLocation: Weight: 220 lb: : Gender: Male BSA: 2.2 m2 : :: 1945 Age: 74 yrs : :Reason For Study: VENTRICULAR TACHYCARDIA : :Ordering Physician: SHERWIN, : :NETO Performed By: Kaylee Hatch : :Referring: NETO COURTNEY : + + Interpretation Summary The patient was in sinus rhythm with heart rates between 60-81 bpm during the exam. The patient had frequent PVCs during the exam. The left ventricle is normal in size and wall thickness. The ejection fraction is estimated to be 50-55%. LV dyssynchrony during PVCs. There has been no significant change in LVEF since the previous exam. Mild MR, mild TR and mild AR which got slightly worse. The right ventricle is grossly normal size. The right ventricular systolic function is normal. Procedure: A two-dimensional transthoracic echocardiogram with color flow and Doppler was performed. The study quality was technically adequate. Comparison is made with the echocardiogram of 03/16/2020. The patient was in sinus rhythm with heart rates between 60-81 bpm during the exam. The patient had frequent PVCs during the exam. Left Ventricle: The left ventricle is normal in size and wall thickness. There is no thrombus. The ejection fraction is estimated to be 50-55%. There has been no significant change since the previous exam. LV dyssynchrony during PVCs. Diastolic parameters suggest a relaxation abnormality of the left ventricle, consistent with probable normal filling pressures. Right Ventricle: The right ventricle is grossly normal size. The right ventricular systolic function is normal. Atria: The left atrial size is normal. Both atria have remained unchanged in size since the prior echo exam. Right atrial size is normal. There is no Doppler evidence for an interatrial shunt. Mitral Valve: There is mild mitral annular calcification. There is mild mitral regurgitation. Aortic Valve: The aortic valve is trileaflet. The aortic valve opens well. There is no aortic valve stenosis. There is mild aortic regurgitation. Tricuspid Valve: The tricuspid valve is normal in structure and function. There is mild tricuspid regurgitation. Pulmonary artery pressures cannot be estimated because of the lack of a measurable TR jet velocity but the IVC suggests a CVP of around 3 mmHg. Pulmonic Valve: The pulmonic valve leaflets are thin and pliable; valve motion is normal. There is trace pulmonic regurgitation. Great Vessels: The aortic root is borderline dilated. The ascending aorta is at the upper limits of normal in size. The IVC is of normal diameter and collapses greater than 50% with a sniff. This suggests a low right atrial pressure of 3 mm Hg. Pericardium/ Pleura There is no pericardial effusion. There is no pleural effusion. MMode/2D Measurements & Calculations LVIDd: 5.1 cm LVOT diam: 2.5 cm LVIDs: 3.6 cm Ao root diam: 4.0 cm FS: 29.1 % asc Aorta Diam: 3.8 cm IVSd: 0.82 cm Ao Arch Diam (Prox Trans): 3.1 cm LVPWd: 0.85 cm LV rankin. diameter/BSA (cm/m^2): 2.4 LV sys. diameter/BSA (cm/m^2): 1.7 LA A2 area: 17.6 cm2 RA long axis: 5.3 cm LA A4 area: 22.9 cm2 RA area: 19.7 cm2 LA length (vol): 6.0 cm RA vol: 62.8 ml LA vol: 57.2 ml RA : 28.9 ml/m2 LA vol index: 26.3 ml/m2 IVC diam: 1.4 cm RVD1 (basal): 3.8 cm TAPSE: 2.2 cm Doppler Measurements & Calculations Ao V2 max: 134.2 cm/sec LVOT Max Leonidas: 96.1 cm/sec Ao V2 mean: 91.5 cm/sec LV V1 max P.7 mmHg Ao max P.2 mmHg LV V1 VTI: 21.5 cm Ao mean P.7 mmHg ALE(I,D): 3.6 cm2 Ao V2 VTI: 29.9 cm ALE(V,D): 3.6 cm2 sev ratio: 0.72 ALE indexed to BSA (cm^2/m^2): 1.6 MV E max leonidas: 71.9 cm/sec TR max leonidas: 241.4 cm/sec MV A max leonidas: 92.6 cm/sec TR max P.3 mmHg MV E/A: 0.78 PA pr(Accel): 27.6 mmHg Med Peak E' Leonidas: 6.3 cm/sec E/E' med: 11.3 Lat Peak E' Leonidas: 6.2 cm/sec E/E' lat: 11.5 E/e' average: 11.4 MV dec time: 0.35 sec SV(LVOT): 106.8 ml Reading Physician:03:10 PM
== END ==
PROVIDERS: PCP Family Medicine; Referring Provider Physician Assistant Medical; Visit Provider Physician Assistant Medical
DX: I08.3 Combined rheumatic disorders of mitral, aortic and tricuspid valves (principal); I47.2 Ventricular tachycardia
CPT/HCPCS: 93306

== ENCOUNTER → 2020-12-12 09:19 | Outpatient (CLI) | payer MEDICARE, SELFPAY ==
[2020-12-12 10:03] LABS: Hemoglobin A1C% w Est Avg Glu 6.1 % (4.0-6.0)
[2020-12-12 10:21] LABS: Alanine Aminotransferase 32 IU/L (<50); Albumin 4.1 g/dL (3.5-5.0); Albumin Globulin Ratio 1.4 (1.0-2.8); Alkaline Phosphatase 62 U/L (38-126); Aspartate Aminotransferase 23 IU/L (17-59); BUN Creatinine Ratio 19.8 (6-22); Bilirubin Total 0.5 mg/dL (0.2-1.3); Blood Urea Nitrogen 23 mg/dL (9-20); Calcium 9.4 mg/dL (8.4-10.2); Carbon Dioxide 25 mmol/L (22-32); Chloride 108 mmol/L (98-107); Estimated Glomerular Filt Rate > 60.0 mL/min (>60); Glucose 149 mg/dL (80-110); HEMOLYSIS < 15 (0-50); Potassium 4.4 mmol/L (3.4-5.1); Sodium 140 mmol/L (137-145); Total Protein 7.1 g/dL (6.3-8.2)
[2020-12-12 10:58] LABS: Free T4, Direct Thyroxine 1.13 ng/dL (0.78-2.19)
[2020-12-12 11:12] LABS: Thyroid Stimulating Hormone 1.12 uIU/mL (0.47-4.68)
== END ==
PROVIDERS: PCP Family Medicine; Referring Provider Family Medicine; Visit Provider Family Medicine
DX: E03.9 Hypothyroidism, unspecified (principal); E11.9 Type 2 diabetes mellitus without complications
CPT/HCPCS: 36415; 80053; 83036; 84439; 84443

== ENCOUNTER 2020-12-15 09:00 | Outpatient (RCR) | payer MEDICARE, SELFPAY ==
[2020-11-10 08:16] VITALS: PULSE 32
--- NOTE | 2020-11-10 16:07 | PT.OPPOC ---
Physical, Occupational & Speech Therapy At [facility] Current Diagnoses Spinal stenosis, lumbosacral region (11/10/20) Muscle weakness (generalized) (11/10/20) Abnormal posture (11/10/20) Visit Care Team Role Provider Type Titus Ramirez DO Attending Provider Physician Primary Care Provider Referring Provider Specialty: [facility] Address: [address] [place] [address], [facility] Email: [email or web address] Plan Of Care PT-OP-T Assessment and Plan Start: 11/09/20 20:40 Freq: Status: Active Protocol: Document 11/10/20 08:16 LRN (Rec: 11/10/20 09:10 LRN [id number]) Physical Therapy Assessment Rehab Potential Rehabilitation Potential Good Evaluation Complexity Number of Personal Factors/Comorbidities 3 or More Impairments Impairments Activity Tolerance,Pain,ROM, Sensation,Soft Tissue Mobility ,Strength Goals Three Impairment Increasing intermittent onset of LE numbness during the day. Short Term Goal (STG) Pt will be able to decrease vagus tone with deep breathing to include chest breathing and neck stretches. STG Duration 12/16/20 Alf Goal (LTG) Pt will be able to manage the intermittent LE numbness with reduction or elimination in onset during the day. LTG Duration 01/21/21 Two Impairment Pain/numbness in LE's at night hindering ability to sleep ( pain 5/10). Short Term Goal (STG) Pt will be educated in sleeping positions to minimize onset of numbness of the LE's . STG Duration 11/18/20 Alf Goal (LTG) Relieve the nighttime pain to level of 2-3/10 for tolerable sleep. LTG Duration 01/21/21 One Impairment Pt lacks a self care HEP. Short Term Goal (STG) Pt will be educated in upper thoracic mobility ex's. STG Duration 11/29/20 Classroom Instructor Goal (LTG) Pt will be independent in a self care HEP. LTG Duration 01/21/21 Assessment Summary Assessment Pt presents with soft tissue and mechanical dysfunction of the lumbar spine resulting in intermittent numbness of his LE's that appear to respond well to lumbar stretches. He demonstrates tightness of the lumbar and extreme tightness of his hip muscles (especially his hip rotators), exacerabating lumbar and LE symptoms associated with his spinal stenosis. The pt also exhibits stiffness of his upper back as noted by decreased rib mobility during deep breathing or shallow breathing. The pt's progress may be hindered by his cardiac comorbidity of extremely low heart rate and his longstanding history of multiple sclerosis, limiting positioning for exercises and limiting his tolerance to exercise. The pt will benefit from skilled physical therapy to improve trunk (upper and lower) and hip mobility, educate pt in self care for pain/numbness and home exercises, to achieve the above stated goals. Physical Therapy Plan Frequency and Duration Frequency of Treatment 2x/Week Plan of Care Start Date 11/10/20 Plan of Care End Date 01/21/21 Therapeutic Interventions Therapeutic Interventions Home Exercise Program,Joint Mobilizations,Manual Therapy, Neuromuscular Re-education, Patient/Caregiver Education, Self-Care/Home Management,Soft Tissue Mobilization,Taping, Therapeutic Activities, Therapeutic Exercises Modalities Cold Pack/Ice Massage,Electric Stimulation,Hot Packs Next Visit Focus/Plan Next Note Type Treatment Note Next Visit Plan Educate in HEP of trunk ( sitting rotation, flex, SB) and hip (flex, ER, IR, ext) flexibilty ex's and assess LE sensation/DTRs. STM: Iliopsoas, lumbar, GI, vagus nerve at SCM, diaphragm JMT for ribs to improve excursion with breathing. Education in positioning for nighttime sleep Education in use of modalities for LB prior to stretching ( heat with precaution due to MS ) and review of use of ice for after. Plan of Care Dates Plan of Care Start Date 11/10/20 Plan of Care End Date 01/21/21 Electronically Signed by: Shanika Wan, PT 11/11/20 [id number] Please Sign and Return: I have reviewed this Plan of Care and certify that the skilled therapy services above are required to meet the patient?s needs. Physician Signature Date Printed Name and Credentials Clinical Instructor Signature Printed Name and Credentials
--- NOTE | 2020-11-10 16:07 | PT.OIE ---
Current Diagnoses Spinal stenosis, lumbosacral region (11/10/20) Muscle weakness (generalized) (11/10/20) Abnormal posture (11/10/20) Past Medical History (Last Updated 09/28/20 @ 10:58 by Titus Ramirez DO) Atrial fibrillation BPH (benign prostatic hyperplasia) (Unknown) Cardiac arrhythmia (Unknown) Diabetes (Unknown) History of kidney stones (Unknown) Hyperlipidemia (Unknown) Hypertension (Unknown) Hypothyroidism Multiple sclerosis (1989) Obstructive sleep apnea (Unknown) Sciatica (Unknown) Sinus arrhythmia seen on electrocardiogram Past Surgical History (Last Reviewed 05/23/18 @ 16:45 by Estephania Hernández DO) History of tonsillectomy Visit Care Team Role Provider Type Titus Ramirez DO Attending Provider Physician Primary Care Provider Referring Provider Specialty: [facility] Address: [address] [place] [address], [facility] Email: [email or web address] Physical Therapy Initial Evaluation PT-OP-A Visit Information Start: 11/09/20 20:40 Freq: Status: Active Protocol: Document 11/10/20 08:16 LRN (Rec: 11/10/20 09:10 LRN [id number]) Out-Patient Physical Therapy Visit Information Visit Information Visit Type Initial Evaluation Visit Start Time 08:16 Visit Stop Time 09:06 Total Visit Minutes 50 Visit Number 1 Evaluation Information Evaluation Date 11/10/20 Precautions Precautions Very low HR of 32 bpm Multiple Sclerosis Neuropathy Controlled HBP PT-OP-B Current Condition Start: 11/09/20 20:40 Freq: Status: Active Protocol: Document 11/10/20 08:16 LRN (Rec: 11/10/20 09:10 LRN [id number]) Current Condition History of Current Condition Onset Date 1 yr, worsening with increased frequency Current Complaints R LE Sciatic pain, and Андрей numbness of legs. History of Current Condition Has had sciatic forever. When legs go numb, he sits down and twists/turns and bends and the numbness goes away. Mostly it is in the afternoon, but yesterday morning he began to feel the symptoms and he did his stretching and was good for the entire day. He knows he has spinal stenosis so he thinks he has a pinched nerve. Happens 5/7 days of the week . Pain at night is pretty bad. Does stretches at night and lays on the floor on ice every night, sometimes goes to chiropractor for back. Also is tired and weak due to low HR (bpm 32) that is currently being monitored due to problem in back of heart. 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 Medications for pain ( Gabapentin & rarely Poneto) Future Testing and Treatments Planned Testing for possible pacemaker implant. Developmental History Developmental History HR is 32 and occasionally 60, has been being checked for the past 8 months. Had been taking medications for MS, and was told from taking meds he was some better , and was told to stop taking the medications. L leg weakness from MS. Treatment Goals Patient/Caregiver Goals Pt goal is to relieve the nighttime pain to level of 2-3 /10 for tolerable sleep. Pt goal is to eliminate the intermittent numbness of legs, and HEP. Prior Functional Status Baseline Function- ADL's Independent Baseline Function- Mobility Independent Baseline Function- Gait Independent without assistive device Baseline Function- Work/School Work Baseline Function- Recreation/Hobbies Golfing Baseline Function- Other Helps for past 3 yrs, but no longer physically having to help her. Current Functional Impairments (Reported) Functional Limitations- ADL's Limited in activity tolerance due to numbness of legs occasionally. Pain at night. Personal Factors Other Personal Factors That May Effect MS Therapy/Recovery Low HR of 32 bpm Neuropathy PT-OP-C Subjective Start: 11/09/20 20:40 Freq: Status: Active Protocol: Document 11/10/20 08:16 LRN (Rec: 11/10/20 09:10 LRN [id number]) Patient Questionnaires Oswestry Low Back Index Oswestry Score 24 Oswestry Impairment 20 to 39% Impaired (Score 20- 39) OP-PT Pain Assessment Pain Assessment Grid Paper Pain Assessment Grid Completed Yes Location Posterior R leg Pain Location Details Posterior Bilateral LE's (R>L onset) Intensity 5 Scale Used Numeric (0 - 10) Description- Other toothache Frequency Intermittent Variations/Patterns Nighttime Low back Pain Location Details Across low back Intensity 5 Scale Used Numeric (0 - 10) Description- Other Numb Frequency Intermittent PT-OP-H Neuro Start: 11/09/20 20:40 Freq: Status: Active Protocol: Document 11/10/20 08:16 LRN (Rec: 07/22/21 09:10 LRN [id number]) Vital Signs Pulse End of therapy Pulse at Rest (bpm) 32 Pulse Assessment Method Pulse Ox/Monitor At rest sitting Pulse at Rest (bpm) 32 Pulse Assessment Method Pulse Ox/Monitor Comments Vital Signs Comments Pt pulse varied from 29 to 48 bpm PT-OP-J Posture/Palpation/Skin Start: 11/09/20 20:40 Freq: Status: Active Protocol: Document 11/10/20 08:16 LRN (Rec: 11/10/20 09:10 LRN [id number]) Posture Evaluation Position Standing Head/C-Spine Posture Forward Head L-Spine Posture Flattened Ankle/Foot Posture (R) Forefoot Abducted Comments Posture Comments Wide stance, L shoulder High, R Trunk shift. Palpation Assessment Location Low Back Palpation Location Spinous Processes with PA glide Palpation Findings Soft Tissue Tightness, Tenderness L PSIS Palpation Location L PSIS Palpation Findings Soft Tissue Tightness, Tenderness PT-OP-K Range of Motion Start: 11/09/20 20:40 Freq: Status: Active Protocol: Document 11/10/20 08:16 LRN (Rec: 11/10/20 09:10 LRN [id number]) Lumbar Spine Range of Motion Lumbar Spine Active Degrees Testing Position Standing Flexion 80 Extension 5 Lateral Flexion Left 15 Lateral Flexion Right 5 Comments LTR mobility worse with knee roll to L (trunk rot R). Active trunk flexion is with 70 deg's hip flexion. Active trunk extension is with 3 deg's hip extension. PT-OP-L Special Tests Start: 11/09/20 20:40 Freq: Status: Active Protocol: Document 11/10/20 08:16 LRN (Rec: 11/10/20 09:10 LRN [id number]) Special Tests Lumbar Spine Special Tests Slump Test Results Negative RLE. Straight Leg Raise Test Results R 60 deg's, L 70 deg's PT-OP-M Strength Start: 11/09/20 20:40 Freq: Status: Active Protocol: Document 11/10/20 08:16 LRN (Rec: 11/10/20 09:10 LRN [id number]) Trunk Strength Trunk Manual Muscle Testing Testing Position Supine Core Stabilization Pt has visible abdominal hernia with MMT of LE's. Pt has fair trunk control with MMT of LE's. Hip Strength Hip Manual Muscle Testing Right Flexion (L2) 5 Normal Abduction 5 Normal Adduction 3 Fair External Rotation 5 Normal Internal Rotation 5 Normal Left Flexion (L2) 4 Good Abduction 5 Normal Adduction 3 Fair External Rotation 5 Normal Internal Rotation 3+ Fair+ PT-OP-Q Treatments Start: 11/09/20 20:40 Freq: Status: Active Protocol: Document 11/10/20 08:16 LRN (Rec: 11/10/20 09:10 LRN [id number]) Therapeutic Exercises Supine Exercises KTC stretch Supine Exercise Name KTC stretch Side bilateral Reps/Minutes 2' Piriformis stretch Supine Exercise Name Piriformis stretch Side bilateral Reps/Minutes 2' Self-Care/Home Management Treatment Education Other Education Discussed results of evaluation, goals, and plan of care (POC). Pt agreeable to goals and POC. Activities Self-Care/Home Management Activities HEP: Deep breathing, Piriformis stretch and KTC stretch. PT-OP-T Assessment and Plan Start: 11/09/20 20:40 Freq: Status: Active Protocol: Document 11/10/20 08:16 LRN (Rec: 11/10/20 09:10 LRN [id number]) Physical Therapy Assessment Rehab Potential Rehabilitation Potential Good Evaluation Complexity Number of Personal Factors/Comorbidities 3 or More Impairments Impairments Activity Tolerance,Pain,ROM, Sensation,Soft Tissue Mobility ,Strength Goals Three Impairment Increasing intermittent onset of LE numbness during the day. Short Term Goal (STG) Pt will be able to decrease vagus tone with deep breathing to include chest breathing and neck stretches. STG Duration 12/16/20 Fci Goal (LTG) Pt will be able to manage the intermittent LE numbness with reduction or elimination in onset during the day. LTG Duration 01/21/21 Two Impairment Pain/numbness in LE's at night hindering ability to sleep ( pain 5/10). Short Term Goal (STG) Pt will be educated in sleeping positions to minimize onset of numbness of the LE's . STG Duration 11/18/20 Fci Goal (LTG) Relieve the nighttime pain to level of 2-3/10 for tolerable sleep. LTG Duration 01/21/21 One Impairment Pt lacks a self care HEP. Short Term Goal (STG) Pt will be educated in upper thoracic mobility ex's. STG Duration 11/29/20 Sample Prep Technician Goal (LTG) Pt will be independent in a self care HEP. LTG Duration 01/21/21 Assessment Summary Assessment Pt presents with soft tissue and mechanical dysfunction of the lumbar spine resulting in intermittent numbness of his LE's that appear to respond well to lumbar stretches. He demonstrates tightness of the lumbar and extreme tightness of his hip muscles (especially his hip rotators), exacerabating lumbar and LE symptoms associated with his spinal stenosis. The pt also exhibits stiffness of his upper back as noted by decreased rib mobility during deep breathing or shallow breathing. The pt's progress may be hindered by his cardiac comorbidity of extremely low heart rate and his longstanding history of multiple sclerosis, limiting positioning for exercises and limiting his tolerance to exercise. The pt will benefit from skilled physical therapy to improve trunk (upper and lower) and hip mobility, educate pt in self care for pain/numbness and home exercises, to achieve the above stated goals. Physical Therapy Plan Frequency and Duration Frequency of Treatment 2x/Week Plan of Care Start Date 11/10/20 Plan of Care End Date 01/21/21 Therapeutic Interventions Therapeutic Interventions Home Exercise Program,Joint Mobilizations,Manual Therapy, Neuromuscular Re-education, Patient/Caregiver Education, Self-Care/Home Management,Soft Tissue Mobilization,Taping, Therapeutic Activities, Therapeutic Exercises Modalities Cold Pack/Ice Massage,Electric Stimulation,Hot Packs Next Visit Focus/Plan Next Note Type Treatment Note Next Visit Plan Educate in HEP of trunk ( sitting rotation, flex, SB) and hip (flex, ER, IR, ext) flexibilty ex's and assess LE sensation/DTRs. STM: Iliopsoas, lumbar, GI, vagus nerve at SCM, diaphragm JMT for ribs to improve excursion with breathing. Education in positioning for nighttime sleep Education in use of modalities for LB prior to stretching ( heat with precaution due to MS ) and review of use of ice for after.
--- NOTE | 2020-11-14 11:22 | PT.OTN ---
Current Diagnoses Spinal stenosis, lumbosacral region (11/14/20) Muscle weakness (generalized) (11/14/20) Abnormal posture (11/14/20) Physical Therapy Treatment Note PT-OP-A Visit Information Start: 11/09/20 20:40 Freq: Status: Active Protocol: Document 11/14/20 09:37 MA (Rec: 11/14/20 10:16 MA [id number]) Out-Patient Physical Therapy Visit Information Visit Information Visit Type Treatment Note Visit Start Time 09:30 Visit Stop Time 10:13 Total Visit Minutes 43 Visit Number 2 Number of CERTIFIED PERSONAL TRAINER Visits 1 Precautions Precautions Very low HR of 32 bpm Multiple Sclerosis Neuropathy Controlled HBP PT-OP-B Current Condition Start: 11/09/20 20:40 Freq: Status: Active Protocol: Document 11/10/20 08:16 LRN (Rec: 11/10/20 09:10 LRN [id number]) Current Condition History of Current Condition Onset Date 1 yr, worsening with increased frequency Current Complaints R LE Sciatic pain, and Андрей numbness of legs. History of Current Condition Has had sciatic forever. When legs go numb, he sits down and twists/turns and bends and the numbness goes away. Mostly it is in the afternoon, but yesterday morning he began to feel the symptoms and he did his stretching and was good for the entire day. He knows he has spinal stenosis so he thinks he has a pinched nerve. Happens 5/7 days of the week . Pain at night is pretty bad. Does stretches at night and lays on the floor on ice every night, sometimes goes to chiropractor for back. Also is tired and weak due to low HR (bpm 32) that is currently being monitored due to problem in back of heart. Prior Treatments and Tests [employer] for low HR, being treated with medications. Medications for pain ( Gabapentin & rarely [place]) Future Testing and Treatments Planned Testing for possible pacemaker implant. Developmental History Developmental History HR is 32 and occasionally 60, has been being checked for the past 8 months. Had been taking medications for MS, and was told from taking meds he was some better , and was told to stop taking the medications. L leg weakness from MS. Treatment Goals Patient/Caregiver Goals Pt goal is to relieve the nighttime pain to level of 2-3 /10 for tolerable sleep. Pt goal is to eliminate the intermittent numbness of legs, and HEP. Prior Functional Status Baseline Function- ADL's Independent Baseline Function- Mobility Independent Baseline Function- Gait Independent without assistive device Baseline Function- Work/School Work Baseline Function- Recreation/Hobbies Golfing Baseline Function- Other Helps for past 3 yrs, but no longer physically having to help her. Current Functional Impairments (Reported) Functional Limitations- ADL's Limited in activity tolerance due to numbness of legs occasionally. Pain at night. Personal Factors Other Personal Factors That May Effect MS Therapy/Recovery Low HR of 32 bpm Neuropathy PT-OP-C Subjective Start: 11/09/20 20:40 Freq: Status: Active Protocol: Document 11/14/20 09:37 MA (Rec: 11/14/20 11:10 MA [id number]) OP-PT Subjective Patient Comments Patient Comments Pt prefers to be called Trae. He reports his HR being low this morining as usual. He sees credit checker again next week PT-OP-H Neuro Start: 11/09/20 20:40 Freq: Status: Active Protocol: Document 11/10/20 08:16 LRN (Rec: 11/10/20 09:10 LRN [id number]) Vital Signs Pulse End of therapy Pulse at Rest (bpm) 32 Pulse Assessment Method Pulse Ox/Monitor At rest sitting Pulse at Rest (bpm) 32 Pulse Assessment Method Pulse Ox/Monitor Comments Vital Signs Comments Pt pulse varied from 29 to 48 bpm PT-OP-J Posture/Palpation/Skin Start: 11/09/20 20:40 Freq: Status: Active Protocol: Document 11/10/20 08:16 LRN (Rec: 11/10/20 09:10 LRN [id number]) Posture Evaluation Position Standing Head/C-Spine Posture Forward Head L-Spine Posture Flattened Ankle/Foot Posture (R) Forefoot Abducted Comments Posture Comments Wide stance, L shoulder High, R Trunk shift. Palpation Assessment Location Low Back Palpation Location Spinous Processes with PA glide Palpation Findings Soft Tissue Tightness, Tenderness L PSIS Palpation Location L PSIS Palpation Findings Soft Tissue Tightness, Tenderness PT-OP-K Range of Motion Start: 11/09/20 20:40 Freq: Status: Active Protocol: Document 11/10/20 08:16 LRN (Rec: 11/10/20 09:10 LRN [id number]) Lumbar Spine Range of Motion Lumbar Spine Active Degrees Testing Position Standing Flexion 80 Extension 5 Lateral Flexion Left 15 Lateral Flexion Right 5 Comments LTR mobility worse with knee roll to L (trunk rot R). Active trunk flexion is with 70 deg's hip flexion. Active trunk extension is with 3 deg's hip extension. PT-OP-L Special Tests Start: 11/09/20 20:40 Freq: Status: Active Protocol: Document 11/10/20 08:16 LRN (Rec: 11/10/20 09:10 LRN [id number]) Special Tests Lumbar Spine Special Tests Slump Test Results Negative RLE. Straight Leg Raise Test Results R 60 deg's, L 70 deg's PT-OP-M Strength Start: 11/09/20 20:40 Freq: Status: Active Protocol: Document 11/10/20 08:16 LRN (Rec: 11/10/20 09:10 LRN [id number]) Trunk Strength Trunk Manual Muscle Testing Testing Position Supine Core Stabilization Pt has visible abdominal hernia with MMT of LE's. Pt has fair trunk control with MMT of LE's. Hip Strength Hip Manual Muscle Testing Right Flexion (L2) 5 Normal Abduction 5 Normal Adduction 3 Fair External Rotation 5 Normal Internal Rotation 5 Normal Left Flexion (L2) 4 Good Abduction 5 Normal Adduction 3 Fair External Rotation 5 Normal Internal Rotation 3+ Fair+ PT-OP-Q Treatments Start: 11/09/20 20:40 Freq: Status: Active Protocol: Document 11/14/20 09:37 MA (Rec: 11/14/20 10:16 MA [id number]) Therapeutic Exercises Supine Exercises LTR Side bilateral Reps/Minutes 6x10 SH KTC stretch Supine Exercise Name KTC stretch- Single and double Side bilateral Reps/Minutes 4' Comments Added to HEP Piriformis stretch Supine Exercise Name Piriformis stretch Side bilateral Reps/Minutes 2' Comments Added to HEP Sitting Exercises Seated Trunk Sidebending Side bilateral Reps/Minutes 6x 10 SH Comments Added to HEP Seated Trunk Flexion Side bilateral Reps/Minutes 6 x 10SH Comments Added to HEP Seated Trunk Rotation Side bilateral Reps/Minutes 6x 10SH Comments Added to HEP Self-Care/Home Management Treatment Education Patient Education Home Exercise Program,Pain Management Other Education Discussed good sleeping position for side sleeping and back sleeping. Encouraged pt not to sleep with HOB raised but pt states his likes it raised sometimes and the sides are not controlled seperately. Added and reviewed HEP exercises for spinal mobility: seated trunk rotation, flexion, and SB; Supine DKTC, SKTC, and piriformis stretch. PT-OP-T Assessment and Plan Start: 11/09/20 20:40 Freq: Status: Active Protocol: Document 11/14/20 09:37 MA (Rec: 11/14/20 10:16 MA [id number]) Physical Therapy Assessment Goals Three Impairment Increasing intermittent onset of LE numbness during the day. Short Term Goal (STG) Pt will be able to decrease vagus tone with deep breathing to include chest breathing and neck stretches. STG Duration 12/16/20 Jail Goal (LTG) Pt will be able to manage the intermittent LE numbness with reduction or elimination in onset during the day. LTG Duration 01/21/21 Two Impairment Pain/numbness in LE's at night hindering ability to sleep ( pain 5/10). Short Term Goal (STG) Pt will be educated in sleeping positions to minimize onset of numbness of the LE's . STG Duration 11/18/20 Direct Entry Midwife Goal (LTG) Relieve the nighttime pain to level of 2-3/10 for tolerable sleep. LTG Duration 01/21/21 One Impairment Pt lacks a self care HEP. Short Term Goal (STG) Pt will be educated in upper thoracic mobility ex's. STG Duration 11/29/20 Direct Entry Midwife Goal (LTG) Pt will be independent in a self care HEP. LTG Duration 01/21/21 Assessment Summary Assessment Pt's HR seated at the beginning of session was 28 BPM. Pt is working with credit checker on this issue. His HR during exercises got up to 42 BPM but was back down to 32 BPM at end of session. Discussed proper sleeping position with pt who sleeps ocassionally on his back but mostly on his side. Encouraged use of pillows between LEs and hugging with UEs for better alignment when sleeping . Pt has pain when first laying down to go to sleep at night after being up and about all day. Encouraged pt to take 20 minutes at night to do stretches before bedtime to help mitigate pain. Added seated trunk rotation, SB, and flexion to HEP as well as supine SKTC, DKTC, and pirifomris stretch. Physical Therapy Plan Frequency and Duration Frequency of Treatment 2x/Week Plan of Care Start Date 11/10/20 Plan of Care End Date 01/21/21 Therapeutic Interventions Therapeutic Interventions Home Exercise Program,Joint Mobilizations,Manual Therapy, Neuromuscular Re-education, Patient/Caregiver Education, Self-Care/Home Management,Soft Tissue Mobilization,Taping, Therapeutic Activities, Therapeutic Exercises Modalities Cold Pack/Ice Massage,Electric Stimulation,Hot Packs Next Visit Focus/Plan Next Note Type Treatment Note Next Visit Plan Educate in HEP of trunk ( sitting rotation, flex, SB) and hip (flex, ER, IR, ext) flexibilty ex's and assess LE sensation/DTRs. STM: Iliopsoas, lumbar, GI, vagus nerve at SCM, diaphragm JMT for ribs to improve excursion with breathing. Education in positioning for nighttime sleep Education in use of modalities for LB prior to stretching ( heat with precaution due to MS ) and review of use of ice for after.
[2020-11-17 09:04] VITALS: PULSE 33
--- NOTE | 2020-11-17 17:01 | PT.OTN ---
Current Diagnoses Spinal stenosis, lumbosacral region (11/17/20) Muscle weakness (generalized) (11/17/20) Abnormal posture (11/17/20) Physical Therapy Treatment Note PT-OP-A Visit Information Start: 11/09/20 20:40 Freq: Status: Active Protocol: Document 11/17/20 09:04 LRN (Rec: 11/17/20 09:50 LRN [id number]) Out-Patient Physical Therapy Visit Information Visit Information Visit Type Treatment Note Visit Start Time 09:04 Visit Stop Time 09:46 Total Visit Minutes 42 Visit Number 3 Evaluation Information Evaluation Date 11/10/20 Precautions Precautions Very low HR of 32 bpm Multiple Sclerosis Neuropathy Controlled HBP PT-OP-B Current Condition Start: 11/09/20 20:40 Freq: Status: Active Protocol: Document 11/10/20 08:16 LRN (Rec: 11/10/20 09:10 LRN [id number]) Current Condition History of Current Condition Onset Date 1 yr, worsening with increased frequency Current Complaints R LE Sciatic pain, and Андрей numbness of legs. History of Current Condition Has had sciatic forever. When legs go numb, he sits down and twists/turns and bends and the numbness goes away. Mostly it is in the afternoon, but yesterday morning he began to feel the symptoms and he did his stretching and was good for the entire day. He knows he has spinal stenosis so he thinks he has a pinched nerve. Happens 5/7 days of the week . Pain at night is pretty bad. Does stretches at night and lays on the floor on ice every night, sometimes goes to chiropractor for back. Also is tired and weak due to low HR (bpm 32) that is currently being monitored due to problem in back of heart. Prior Treatments and Tests [employer] for low HR, being treated with medications. Medications for pain ( Gabapentin & rarely [place]) Future Testing and Treatments Planned Testing for possible pacemaker implant. Developmental History Developmental History HR is 32 and occasionally 60, has been being checked for the past 8 months. Had been taking medications for MS, and was told from taking meds he was some better , and was told to stop taking the medications. L leg weakness from MS. Treatment Goals Patient/Caregiver Goals Pt goal is to relieve the nighttime pain to level of 2-3 /10 for tolerable sleep. Pt goal is to eliminate the intermittent numbness of legs, and HEP. Prior Functional Status Baseline Function- ADL's Independent Baseline Function- Mobility Independent Baseline Function- Gait Independent without assistive device Baseline Function- Work/School Work Baseline Function- Recreation/Hobbies Golfing Baseline Function- Other Helps for past 3 yrs, but no longer physically having to help her. Current Functional Impairments (Reported) Functional Limitations- ADL's Limited in activity tolerance due to numbness of legs occasionally. Pain at night. Personal Factors Other Personal Factors That May Effect MS Therapy/Recovery Low HR of 32 bpm Neuropathy PT-OP-C Subjective Start: 11/09/20 20:40 Freq: Status: Active Protocol: Document 11/17/20 09:04 LRN (Rec: 11/17/20 09:50 LRN [id number]) OP-PT Subjective Patient Comments Patient Comments Not having as much trouble when starting to sleep at night. Back hasn't been hurting as bad and legs aren't numbing as much. PT-OP-H Neuro Start: 11/09/20 20:40 Freq: Status: Active Protocol: Document 11/17/20 09:04 LRN (Rec: 11/17/20 09:51 LRN [id number]) Deep Tendon Reflex & Clonus Assessment Deep Tendon Reflex Bilateral Patellar Deep Tendon Reflex 1+ Diminished PT-OP-J Posture/Palpation/Skin Start: 11/09/20 20:40 Freq: Status: Active Protocol: Document 11/10/20 08:16 LRN (Rec: 11/10/20 09:10 LRN [id number]) Posture Evaluation Position Standing Head/C-Spine Posture Forward Head L-Spine Posture Flattened Ankle/Foot Posture (R) Forefoot Abducted Comments Posture Comments Wide stance, L shoulder High, R Trunk shift. Palpation Assessment Location Low Back Palpation Location Spinous Processes with PA glide Palpation Findings Soft Tissue Tightness, Tenderness L PSIS Palpation Location L PSIS Palpation Findings Soft Tissue Tightness, Tenderness PT-OP-K Range of Motion Start: 11/09/20 20:40 Freq: Status: Active Protocol: Document 11/10/20 08:16 LRN (Rec: 11/10/20 09:10 LRN [id number]) Lumbar Spine Range of Motion Lumbar Spine Active Degrees Testing Position Standing Flexion 80 Extension 5 Lateral Flexion Left 15 Lateral Flexion Right 5 Comments LTR mobility worse with knee roll to L (trunk rot R). Active trunk flexion is with 70 deg's hip flexion. Active trunk extension is with 3 deg's hip extension. PT-OP-L Special Tests Start: 11/09/20 20:40 Freq: Status: Active Protocol: Document 11/10/20 08:16 LRN (Rec: 11/10/20 09:10 LRN [id number]) Special Tests Lumbar Spine Special Tests Slump Test Results Negative RLE. Straight Leg Raise Test Results R 60 deg's, L 70 deg's PT-OP-M Strength Start: 11/09/20 20:40 Freq: Status: Active Protocol: Document 11/10/20 08:16 LRN (Rec: 11/10/20 09:10 LRN [id number]) Trunk Strength Trunk Manual Muscle Testing Testing Position Supine Core Stabilization Pt has visible abdominal hernia with MMT of LE's. Pt has fair trunk control with MMT of LE's. Hip Strength Hip Manual Muscle Testing Right Flexion (L2) 5 Normal Abduction 5 Normal Adduction 3 Fair External Rotation 5 Normal Internal Rotation 5 Normal Left Flexion (L2) 4 Good Abduction 5 Normal Adduction 3 Fair External Rotation 5 Normal Internal Rotation 3+ Fair+ PT-OP-Q Treatments Start: 11/09/20 20:40 Freq: Status: Active Protocol: Document 11/17/20 09:04 LRN (Rec: 11/17/20 09:50 LRN [id number]) Therapeutic Exercises Supine Exercises LTR Side bilateral Reps/Minutes 6x10 SH KTC stretch Supine Exercise Name KTC (HEP) - Single (with iliopsoas stretch) and double Side bilateral Reps/Minutes 4' Comments Added to HEP Piriformis stretch Supine Exercise Name Piriformis stretch (HEP) Side bilateral Equipment Used Wedge Reps/Minutes 3' Comments Added to HEP Sitting Exercises Piriformis Stretch Sitting Exercise Name Piriformis stretch (HEP) Side bilateral Reps/Minutes 1' each Comments Extra time for determining propre max stretch position Hip ER stretch Sitting Exercise Name Hip ER stretch (HEP) Side bilateral Reps/Minutes 60 x 1 each Comments Extra time for determining propre max stretch position Seated Trunk Sidebending Side bilateral Reps/Minutes 6x 10 SH Comments Added to HEP Seated Trunk Rotation Side bilateral Reps/Minutes 6x 10SH Comments Added to HEP Self-Care/Home Management Treatment Education Patient Education Home Exercise Program Other Education Discussed and educated pt in nighttime L side sleeping with pillow preventing R leg from draping over the L, in order to avoid RLE Sciatic pain. Activities Self-Care/Home Management Activities Self vestibular maneuver in supine to start. Issued& reviewed HEP: Sitting hip ER & Piriformis stretch. PT-OP-T Assessment and Plan Start: 11/09/20 20:40 Freq: Status: Active Protocol: Document 11/17/20 09:04 LRN (Rec: 11/17/20 09:50 LRN [id number]) Physical Therapy Assessment Goals Three Impairment Increasing intermittent onset of LE numbness during the day. Short Term Goal (STG) Pt will be able to decrease vagus tone with deep breathing to include chest breathing and neck stretches. STG Duration 12/16/20 Penitentiary Goal (LTG) Pt will be able to manage the intermittent LE numbness with reduction or elimination in onset during the day. LTG Duration 01/21/21 Two Impairment Pain/numbness in LE's at night hindering ability to sleep ( pain 5/10). Short Term Goal (STG) Pt will be educated in sleeping positions to minimize onset of numbness of the LE's . STG Duration 11/18/20 Cat Scan Technologist Goal (LTG) Relieve the nighttime pain to level of 2-3/10 for tolerable sleep. LTG Duration 01/21/21 One Impairment Pt lacks a self care HEP. Short Term Goal (STG) Pt will be educated in upper thoracic mobility ex's. STG Duration 11/29/20 Penitentiary Goal (LTG) Pt will be independent in a self care HEP. LTG Duration 01/21/21 Assessment Summary Assessment HR to start was 33. 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 Poor recall of HEP without handouts . Symmetrical Patellar DTRs, not able to detect achlles DTR with shoes on, held assessment without shoes due to time contraints. HR ending is 32, pt noting no physical distress. Physical Therapy Plan Frequency and Duration Frequency of Treatment 2x/Week Plan of Care Start Date 11/10/20 Plan of Care End Date 01/21/21 Next Visit Focus/Plan Next Note Type Treatment Note Next Visit Plan Assess LE Achilles DTRs (w/o shoes on). Monitor response to nighttime sleep w/or without use of pillows under RLE in sidelie. Add standing LB/SI stab strengthening. STM: Iliopsoas, lumbar, GI, vagus nerve at SCM, diaphragm JMT for ribs to improve excursion with breathing. Education in positioning for nighttime sleep Education in use of modalities for LB prior to stretching ( heat with precaution due to MS ) and review of use of ice for after.
--- NOTE | 2020-11-22 09:48 | PT.OTN ---
Current Diagnoses Spinal stenosis, lumbosacral region (11/22/20) Muscle weakness (generalized) (11/22/20) Abnormal posture (11/22/20) Physical Therapy Treatment Note PT-OP-A Visit Information Start: 11/09/20 20:40 Freq: Status: Active Protocol: Document 11/22/20 09:03 SP (Rec: 11/22/20 12:08 SP [id number]) Out-Patient Physical Therapy Visit Information Visit Information Visit Type Treatment Note Visit Note VItals Pre activity L arm: seated: BP 113/87, HR 38-40 at rest. Seat streching: HR 31 95% SaO2 . post standing Tb ex: Hr 33bpm Visit Start Time 09:03 Visit Stop Time 09:48 Total Visit Minutes 45 Visit Number 4 Number of BACCARAT MANAGER Visits 1 Evaluation Information Evaluation Date 11/10/20 Precautions Precautions Very low HR of 32 bpm Multiple Sclerosis Neuropathy Controlled HBP PT-OP-B Current Condition Start: 11/09/20 20:40 Freq: Status: Active Protocol: Document 11/10/20 08:16 LRN (Rec: 11/10/20 09:10 LRN [id number]) Current Condition History of Current Condition Onset Date 1 yr, worsening with increased frequency Current Complaints R LE Sciatic pain, and Андрей numbness of legs. History of Current Condition Has had sciatic forever. When legs go numb, he sits down and twists/turns and bends and the numbness goes away. Mostly it is in the afternoon, but yesterday morning he began to feel the symptoms and he did his stretching and was good for the entire day. He knows he has spinal stenosis so he thinks he has a pinched nerve. Happens 5/7 days of the week . Pain at night is pretty bad. Does stretches at night and lays on the floor on ice every night, sometimes goes to chiropractor for back. Also is tired and weak due to low HR (bpm 32) that is currently being monitored due to problem in back of heart. 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 Medications for pain ( Gabapentin & rarely Dewitt) Future Testing and Treatments Planned Testing for possible pacemaker implant. Developmental History Developmental History HR is 32 and occasionally 60, has been being checked for the past 8 months. Had been taking medications for MS, and was told from taking meds he was some better , and was told to stop taking the medications. L leg weakness from MS. Treatment Goals Patient/Caregiver Goals Pt goal is to relieve the nighttime pain to level of 2-3 /10 for tolerable sleep. Pt goal is to eliminate the intermittent numbness of legs, and HEP. Prior Functional Status Baseline Function- ADL's Independent Baseline Function- Mobility Independent Baseline Function- Gait Independent without assistive device Baseline Function- Work/School Work Baseline Function- Recreation/Hobbies Golfing Baseline Function- Other Helps for past 3 yrs, but no longer physically having to help her. Current Functional Impairments (Reported) Functional Limitations- ADL's Limited in activity tolerance due to numbness of legs occasionally. Pain at night. Personal Factors Other Personal Factors That May Effect MS Therapy/Recovery Low HR of 32 bpm Neuropathy PT-OP-C Subjective Start: 11/09/20 20:40 Freq: Status: Active Protocol: Document 11/22/20 09:03 SP (Rec: 11/22/20 12:08 SP [id number]) OP-PT Subjective Patient Comments Patient Comments Pt stated hasn't had any B leg numbness since last week. Pt states has an appt with counter dish carrier approx Jan 02 and concerns of low HR and tired alot, alot effort to push self to do anything. PT-OP-H Neuro Start: 11/09/20 20:40 Freq: Status: Active Protocol: Document 11/17/20 09:04 LRN (Rec: 11/17/20 09:51 LRN [id number]) Deep Tendon Reflex & Clonus Assessment Deep Tendon Reflex Bilateral Patellar Deep Tendon Reflex 1+ Diminished PT-OP-J Posture/Palpation/Skin Start: 11/09/20 20:40 Freq: Status: Active Protocol: Document 11/10/20 08:16 LRN (Rec: 11/10/20 09:10 LRN [id number]) Posture Evaluation Position Standing Head/C-Spine Posture Forward Head L-Spine Posture Flattened Ankle/Foot Posture (R) Forefoot Abducted Comments Posture Comments Wide stance, L shoulder High, R Trunk shift. Palpation Assessment Location Low Back Palpation Location Spinous Processes with PA glide Palpation Findings Soft Tissue Tightness, Tenderness L PSIS Palpation Location L PSIS Palpation Findings Soft Tissue Tightness, Tenderness PT-OP-K Range of Motion Start: 11/09/20 20:40 Freq: Status: Active Protocol: Document 11/10/20 08:16 LRN (Rec: 11/10/20 09:10 LRN [id number]) Lumbar Spine Range of Motion Lumbar Spine Active Degrees Testing Position Standing Flexion 80 Extension 5 Lateral Flexion Left 15 Lateral Flexion Right 5 Comments LTR mobility worse with knee roll to L (trunk rot R). Active trunk flexion is with 70 deg's hip flexion. Active trunk extension is with 3 deg's hip extension. PT-OP-L Special Tests Start: 11/09/20 20:40 Freq: Status: Active Protocol: Document 11/10/20 08:16 LRN (Rec: 11/10/20 09:10 LRN [id number]) Special Tests Lumbar Spine Special Tests Slump Test Results Negative RLE. Straight Leg Raise Test Results R 60 deg's, L 70 deg's PT-OP-M Strength Start: 11/09/20 20:40 Freq: Status: Active Protocol: Document 11/10/20 08:16 LRN (Rec: 11/10/20 09:10 LRN [id number]) Trunk Strength Trunk Manual Muscle Testing Testing Position Supine Core Stabilization Pt has visible abdominal hernia with MMT of LE's. Pt has fair trunk control with MMT of LE's. Hip Strength Hip Manual Muscle Testing Right Flexion (L2) 5 Normal Abduction 5 Normal Adduction 3 Fair External Rotation 5 Normal Internal Rotation 5 Normal Left Flexion (L2) 4 Good Abduction 5 Normal Adduction 3 Fair External Rotation 5 Normal Internal Rotation 3+ Fair+ PT-OP-Q Treatments Start: 11/09/20 20:40 Freq: Status: Active Protocol: Document 11/22/20 09:03 SP (Rec: 11/22/20 12:08 SP [id number]) Therapeutic Exercises Supine Exercises LTR Side bilateral Reps/Minutes 30 x2 B, then over all 55cm Tball core fac LR Comments good feedback response LB relaxing KTC stretch Supine Exercise Name KTC (HEP) - Single (with iliopsoas stretch) and double Side bilateral Reps/Minutes 4' Comments reviewed HEP Piriformis stretch Supine Exercise Name Piriformis stretch (HEP)- hip IR/ ER Side bilateral Equipment Used Wedge Reps/Minutes 3' Comments reviewed HEP- is my go to feels the best results Sitting Exercises Piriformis Stretch Sitting Exercise Name Piriformis stretch (HEP review ) Side bilateral Reps/Minutes 1' each Comments good proper max stretch position does at work Hip ER stretch Sitting Exercise Name Hip ER stretch (HEP reviewed) Side bilateral Reps/Minutes 60 x 1 each Comments propre max stretch position- does at work Seated Trunk Sidebending Sitting Exercise Name reviewed HEP Side bilateral Reps/Minutes 6x 10 SH Comments good form, performs at work Seated Trunk Flexion Sitting Exercise Name reviewed HEP Side bilateral Equipment Used pillow front Reps/Minutes 6 x 10SH Comments good form, performs at work Standing Exercises resisted shld ext/pull down Standing Exercise Name added to HEP Side bilateral Resistance Tb #3 Reps/Minutes 2x10 Comments good core fac, occasional cue for scap depress stab eccentric return resisted row Standing Exercise Name added to HEP Side bilateral Resistance Tb#2 Reps/Minutes 2x10 Comments good core fac, occasional cue for scap depress stab eccentric return Other Exercises self STMs Other Exercise Name pirformis/glut max/med Equipment Used racquetball on wall, supine floor, seated Reps/Minutes 30 sec or to tolerance and benefits but not worsen pain Comments good feedback at wall, has always done on floor supine or seated- good fdbk sciatic nerve glide Other Exercise Name showed supine and seated as needed for nerve pain Side bilateral Reps/Minutes x10 AP Comments good, no pain (not currently having pain but gave for assist if needed) Self-Care/Home Management Treatment Education Patient Education Home Exercise Program Other Education reviewed education in nighttime L side sleeping with pillow preventing R leg from draping over the L, in order to avoid RLE Sciatic pain. Initiated sciatic nerve glide supine/ seated w/ good demo and understanding. Pt stated will be flying soon and wanted more ways to stretch, and what do if get nerve pain. Also reviewed self STMs using ball wall vs sitting vs supine to be able to apply. Has always done on floor laying on and felt effective. PT-OP-T Assessment and Plan Start: 11/09/20 20:40 Freq: Status: Active Protocol: Document 11/22/20 09:03 SP (Rec: 11/22/20 12:08 SP [id number]) Physical Therapy Assessment Goals Three Impairment Increasing intermittent onset of LE numbness during the day. Short Term Goal (STG) Pt will be able to decrease vagus tone with deep breathing to include chest breathing and neck stretches. STG Duration 12/16/20 Fdc Goal (LTG) Pt will be able to manage the intermittent LE numbness with reduction or elimination in onset during the day. LTG Duration 01/21/21 Two Impairment Pain/numbness in LE's at night hindering ability to sleep ( pain 5/10). Short Term Goal (STG) Pt will be educated in sleeping positions to minimize onset of numbness of the LE's . STG Duration 11/18/20 Fdc Goal (LTG) Relieve the nighttime pain to level of 2-3/10 for tolerable sleep. LTG Duration 01/21/21 One Impairment Pt lacks a self care HEP. Short Term Goal (STG) Pt will be educated in upper thoracic mobility ex's. STG Duration 11/29/20 Fdc Goal (LTG) Pt will be independent in a self care HEP. LTG Duration 01/21/21 Progress Towards Goals Progress Towards Goals Progressing Toward Goals Progress Comments Pt having no nerve pain in BLE since last wk. Assessment Summary Assessment Pt's HR started at 38-40 bpm seated at rest, decreases to 31bpm with supine stretching, 33bpm with standing self STMs and initiated resisted rows/ shld ext with no adverse affects felt. Pt will see a counter dish carrier mid Dec. PCP following him in meantime. Pt making gains in no pain since last week. Physical Therapy Plan Frequency and Duration Frequency of Treatment 2x/Week Plan of Care Start Date 11/10/20 Plan of Care End Date 01/21/21 Therapeutic Interventions Therapeutic Interventions Home Exercise Program,Joint Mobilizations,Manual Therapy, Neuromuscular Re-education, Patient/Caregiver Education, Self-Care/Home Management,Soft Tissue Mobilization,Taping, Therapeutic Activities, Therapeutic Exercises Modalities Cold Pack/Ice Massage,Electric Stimulation,Hot Packs Next Visit Focus/Plan Next Note Type Treatment Note Next Visit Plan Assess response to Initiated standing LB/SI stab strengthening. POC: Assess LE Achilles DTRs ( w/o shoes on). Monitor response to nighttime sleep w/or without use of pillows under RLE in sidelie. STM: Iliopsoas, lumbar, GI, vagus nerve at SCM, diaphragm JMT for ribs to improve excursion with breathing. Education in positioning for nighttime sleep Education in use of modalities for LB prior to stretching ( heat with precaution due to MS ) and review of use of ice for after.
[2020-11-28 08:14] VITALS: PULSE 27; PULSE 29
--- NOTE | 2020-11-28 16:51 | PT.OTN ---
Current Diagnoses Spinal stenosis, lumbosacral region (11/28/20) Muscle weakness (generalized) (11/28/20) Abnormal posture (11/28/20) Physical Therapy Treatment Note PT-OP-A Visit Information Start: 11/09/20 20:40 Freq: Status: Active Protocol: Document 11/28/20 08:14 LRN (Rec: 11/28/20 09:03 LRN [id number]) Out-Patient Physical Therapy Visit Information Visit Information Visit Type Treatment Note Visit Start Time 08:15 Visit Stop Time 09:02 Total Visit Minutes 47 Visit Number 5 Evaluation Information Evaluation Date 11/10/20 Precautions Precautions Very low HR of 32 bpm Multiple Sclerosis Neuropathy Controlled HBP PT-OP-B Current Condition Start: 11/09/20 20:40 Freq: Status: Active Protocol: Document 11/10/20 08:16 LRN (Rec: 11/10/20 09:10 LRN [id number]) Current Condition History of Current Condition Onset Date 1 yr, worsening with increased frequency Current Complaints R LE Sciatic pain, and Андрей numbness of legs. History of Current Condition Has had sciatic forever. When legs go numb, he sits down and twists/turns and bends and the numbness goes away. Mostly it is in the afternoon, but yesterday morning he began to feel the symptoms and he did his stretching and was good for the entire day. He knows he has spinal stenosis so he thinks he has a pinched nerve. Happens 5/7 days of the week . Pain at night is pretty bad. Does stretches at night and lays on the floor on ice every night, sometimes goes to chiropractor for back. Also is tired and weak due to low HR (bpm 32) that is currently being monitored due to problem in back of heart. 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 Medications for pain ( Gabapentin & rarely Castine) Future Testing and Treatments Planned Testing for possible pacemaker implant. Developmental History Developmental History HR is 32 and occasionally 60, has been being checked for the past 8 months. Had been taking medications for MS, and was told from taking meds he was some better , and was told to stop taking the medications. L leg weakness from MS. Treatment Goals Patient/Caregiver Goals Pt goal is to relieve the nighttime pain to level of 2-3 /10 for tolerable sleep. Pt goal is to eliminate the intermittent numbness of legs, and HEP. Prior Functional Status Baseline Function- ADL's Independent Baseline Function- Mobility Independent Baseline Function- Gait Independent without assistive device Baseline Function- Work/School Work Baseline Function- Recreation/Hobbies Golfing Baseline Function- Other Helps for past 3 yrs, but no longer physically having to help her. Current Functional Impairments (Reported) Functional Limitations- ADL's Limited in activity tolerance due to numbness of legs occasionally. Pain at night. Personal Factors Other Personal Factors That May Effect MS Therapy/Recovery Low HR of 32 bpm Neuropathy PT-OP-C Subjective Start: 11/09/20 20:40 Freq: Status: Active Protocol: Document 11/28/20 08:14 LRN (Rec: 11/28/20 09:03 LRN [id number]) OP-PT Subjective Patient Comments Patient Comments Numbness in legs is only a couple times a week a week last week instead of a couple times a day. Nighttime pain is better, but last night it woke him requiring vicodin then was able to sleep, pain was 6/10. Waking ~1/week or less (1x/10 days). If doing a lot of sitting, usually pain is worse. PT-OP-H Neuro Start: 11/09/20 20:40 Freq: Status: Active Protocol: Document 11/28/20 08:14 LRN (Rec: 11/28/20 09:03 LRN [id number]) Vital Signs Pulse End of therapy Pulse at Rest (bpm) 27 At rest sitting Pulse at Rest (bpm) 29 PT-OP-J Posture/Palpation/Skin Start: 11/09/20 20:40 Freq: Status: Active Protocol: Document 11/10/20 08:16 LRN (Rec: 11/10/20 09:10 LRN [id number]) Posture Evaluation Position Standing Head/C-Spine Posture Forward Head L-Spine Posture Flattened Ankle/Foot Posture (R) Forefoot Abducted Comments Posture Comments Wide stance, L shoulder High, R Trunk shift. Palpation Assessment Location Low Back Palpation Location Spinous Processes with PA glide Palpation Findings Soft Tissue Tightness, Tenderness L PSIS Palpation Location L PSIS Palpation Findings Soft Tissue Tightness, Tenderness PT-OP-K Range of Motion Start: 11/09/20 20:40 Freq: Status: Active Protocol: Document 11/10/20 08:16 LRN (Rec: 11/10/20 09:10 LRN [id number]) Lumbar Spine Range of Motion Lumbar Spine Active Degrees Testing Position Standing Flexion 80 Extension 5 Lateral Flexion Left 15 Lateral Flexion Right 5 Comments LTR mobility worse with knee roll to L (trunk rot R). Active trunk flexion is with 70 deg's hip flexion. Active trunk extension is with 3 deg's hip extension. PT-OP-L Special Tests Start: 11/09/20 20:40 Freq: Status: Active Protocol: Document 11/10/20 08:16 LRN (Rec: 11/10/20 09:10 LRN [id number]) Special Tests Lumbar Spine Special Tests Slump Test Results Negative RLE. Straight Leg Raise Test Results R 60 deg's, L 70 deg's PT-OP-M Strength Start: 11/09/20 20:40 Freq: Status: Active Protocol: Document 11/10/20 08:16 LRN (Rec: 11/10/20 09:10 LRN [id number]) Trunk Strength Trunk Manual Muscle Testing Testing Position Supine Core Stabilization Pt has visible abdominal hernia with MMT of LE's. Pt has fair trunk control with MMT of LE's. Hip Strength Hip Manual Muscle Testing Right Flexion (L2) 5 Normal Abduction 5 Normal Adduction 3 Fair External Rotation 5 Normal Internal Rotation 5 Normal Left Flexion (L2) 4 Good Abduction 5 Normal Adduction 3 Fair External Rotation 5 Normal Internal Rotation 3+ Fair+ PT-OP-Q Treatments Start: 11/09/20 20:40 Freq: Status: Active Protocol: Document 11/28/20 08:14 LRN (Rec: 11/28/20 09:03 LRN [id number]) Therapeutic Exercises Sitting Exercises Cervical Rot Sitting Exercise Name Active C rot stretch Side bilateral Reps/Minutes 5' Cervical SB Sitting Exercise Name C SB stretch Side bilateral Reps/Minutes 6' Comments Extra time for stretching with arm by side and behind back Piriformis Stretch Sitting Exercise Name Piriformis stretch w/active stretch Side bilateral Reps/Minutes 1' each, f/b active stretch Comments good proper max stretch position does at work Hip ER stretch Sitting Exercise Name Hip ER stretch w/active stretch Side bilateral Reps/Minutes 60 x 2 each, f/b active stretch Comments propre max stretch position- does at work Seated Trunk Sidebending Side bilateral Reps/Minutes 6x 10 SH Comments good form, performs at work Other Exercises Jayy-reclined Pec stretch Side bilateral Reps/Minutes 6' Comments Extra time taken to determine best positioning for appropriate stretch Semi-reclined C. Ext Reps/Minutes 3' Comments Extra time taken to determine best positioning for appropriate stretch Self-Care/Home Management Treatment Education Patient Education Home Exercise Program Other Education Reviewed deep breathing to include chest movement. Discussed at length pt concerns of onset of occasional hot flashes leaving him feeling poorly and worn out. Recommended pt track onset and treatments as would with MS flare ups and to discuss with physician. Activities Self-Care/Home Management Activities Issued & reviewed HEP: Neck & pec stretches (SB, rot, ext) PT-OP-T Assessment and Plan Start: 11/09/20 20:40 Freq: Status: Active Protocol: Document 11/28/20 08:14 LRN (Rec: 11/28/20 09:03 LRN [id number]) Physical Therapy Assessment Goals Three Impairment Increasing intermittent onset of LE numbness during the day. Short Term Goal (STG) Pt will be able to decrease vagus tone with deep breathing to include chest breathing and neck stretches. STG Duration 12/16/20 (11/28/20: MET GOAL) (8 Half-Way Goal (LTG) Pt will be able to manage the intermittent LE numbness with reduction or elimination in onset during the day. LTG Duration 01/21/21 (11/28/20: MET GOAL) Two Impairment Pain/numbness in LE's at night hindering ability to sleep ( pain 5/10). Short Term Goal (STG) Pt will be educated in sleeping positions to minimize onset of numbness of the LE's . (11/17/20: I/S pt in best sleeping positions; 11/28/20: Reviewed sleeping position) STG Duration 11/18/20 (11/28/20: MET GOAL) Rapid Outsole Stitcher Goal (LTG) Relieve the nighttime pain to level of 2-3/10 for tolerable sleep. (11/28/20: Frequency of pain is ~1/10 days, but pain when happens was 6/10). LTG Duration 01/21/21 (11/28/20: MET GOAL) One Impairment Pt lacks a self care HEP. Short Term Goal (STG) Pt will be educated in upper thoracic mobility ex's. STG Duration 11/29/20 Rapid Outsole Stitcher Goal (LTG) Pt will be independent in a self care HEP. LTG Duration 01/21/21 Assessment Summary Assessment Pt HR remained slightly below 30 bpm without symptoms. He was able to do added neck and pec stretches in semi-reclined position without increased pain. Tightness in Pec Minor present. Physical Therapy Plan Frequency and Duration Frequency of Treatment 2x/Week Plan of Care Start Date 11/10/20 Plan of Care End Date 01/21/21 Next Visit Focus/Plan Next Note Type Treatment Note Next Visit Plan Assess response to Initiated standing LB/SI stab strengthening. Add Thoracic self ROM (Cat/Cow , rotation in supine or sidelie) POC: Assess LE Achilles DTRs ( w/o shoes on). Monitor response to nighttime sleep w/or without use of pillows under RLE in sidelie. STM: Iliopsoas, lumbar, GI, vagus nerve at SCM, diaphragm JMT for ribs to improve excursion with breathing. Education in positioning for nighttime sleep Education in use of modalities for LB prior to stretching ( heat with precaution due to MS ) and review of use of ice for after.
--- NOTE | 2020-12-05 09:45 | PT.OTN ---
Current Diagnoses Spinal stenosis, lumbosacral region (12/05/20) Muscle weakness (generalized) (12/05/20) Abnormal posture (12/05/20) Physical Therapy Treatment Note PT-OP-A Visit Information Start: 11/09/20 20:40 Freq: Status: Active Protocol: Document 12/05/20 09:04 SP (Rec: 12/05/20 09:51 SP [id number]) Out-Patient Physical Therapy Visit Information Visit Information Visit Type Treatment Note Visit Note Very low HR of 30 bpm pre acitivity today 12/05/20, states feel fine though. Visit Start Time 09:04 Visit Stop Time 09:45 Total Visit Minutes 41 Visit Number 6 Number of SUPER[employer]OR [employer] Visits 1 Evaluation Information Evaluation Date 11/10/20 Precautions Precautions Very low HR of 30 bpm pre acitivity today 12/05/20. Multiple Sclerosis Neuropathy Controlled HBP PT-OP-B Current Condition Start: 11/09/20 20:40 Freq: Status: Active Protocol: Document 11/10/20 08:16 LRN (Rec: 11/10/20 09:10 LRN [id number]) Current Condition History of Current Condition Onset Date 1 yr, worsening with increased frequency Current Complaints R LE Sciatic pain, and Андрей numbness of legs. History of Current Condition Has had sciatic forever. When legs go numb, he sits down and twists/turns and bends and the numbness goes away. Mostly it is in the afternoon, but yesterday morning he began to feel the symptoms and he did his stretching and was good for the entire day. He knows he has spinal stenosis so he thinks he has a pinched nerve. Happens 5/7 days of the week . Pain at night is pretty bad. Does stretches at night and lays on the floor on ice every night, sometimes goes to chiropractor for back. Also is tired and weak due to low HR (bpm 32) that is currently being monitored due to problem in back of heart. 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 Medications for pain ( Gabapentin & rarely [place]) Future Testing and Treatments Planned Testing for possible pacemaker implant. Developmental History Developmental History HR is 32 and occasionally 60, has been being checked for the past 8 months. Had been taking medications for MS, and was told from taking meds he was some better , and was told to stop taking the medications. L leg weakness from MS. Treatment Goals Patient/Caregiver Goals Pt goal is to relieve the nighttime pain to level of 2-3 /10 for tolerable sleep. Pt goal is to eliminate the intermittent numbness of legs, and HEP. Prior Functional Status Baseline Function- ADL's Independent Baseline Function- Mobility Independent Baseline Function- Gait Independent without assistive device Baseline Function- Work/School Work Baseline Function- Recreation/Hobbies Golfing Baseline Function- Other Helps for past 3 yrs, but no longer physically having to help her. Current Functional Impairments (Reported) Functional Limitations- ADL's Limited in activity tolerance due to numbness of legs occasionally. Pain at night. Personal Factors Other Personal Factors That May Effect MS Therapy/Recovery Low HR of 32 bpm Neuropathy PT-OP-C Subjective Start: 11/09/20 20:40 Freq: Status: Active Protocol: Document 12/05/20 09:04 SP (Rec: 12/05/20 09:51 SP [id number]) OP-PT Subjective Patient Comments Patient Comments Pt states going very good, compliant with stretches and exercises given, gaining more ROM. Numbness not as often into B legs. Has a follow up appt with general doctor that referred to PT this week. Pt commented that thought today's appt would be the last according to last seen with PT . can't keep pillows between BLE sleeping moves to much. Patient Reported Progress Improving PT-OP-H Neuro Start: 11/09/20 20:40 Freq: Status: Active Protocol: Document 11/28/20 08:14 LRN (Rec: 11/28/20 09:03 LRN [id number]) Vital Signs Pulse End of therapy Pulse at Rest (bpm) 27 At rest sitting Pulse at Rest (bpm) 29 PT-OP-J Posture/Palpation/Skin Start: 11/09/20 20:40 Freq: Status: Active Protocol: Document 11/10/20 08:16 LRN (Rec: 11/10/20 09:10 LRN [id number]) Posture Evaluation Position Standing Head/C-Spine Posture Forward Head L-Spine Posture Flattened Ankle/Foot Posture (R) Forefoot Abducted Comments Posture Comments Wide stance, L shoulder High, R Trunk shift. Palpation Assessment Location Low Back Palpation Location Spinous Processes with PA glide Palpation Findings Soft Tissue Tightness, Tenderness L PSIS Palpation Location L PSIS Palpation Findings Soft Tissue Tightness, Tenderness PT-OP-K Range of Motion Start: 11/09/20 20:40 Freq: Status: Active Protocol: Document 11/10/20 08:16 LRN (Rec: 11/10/20 09:10 LRN [id number]) Lumbar Spine Range of Motion Lumbar Spine Active Degrees Testing Position Standing Flexion 80 Extension 5 Lateral Flexion Left 15 Lateral Flexion Right 5 Comments LTR mobility worse with knee roll to L (trunk rot R). Active trunk flexion is with 70 deg's hip flexion. Active trunk extension is with 3 deg's hip extension. PT-OP-L Special Tests Start: 11/09/20 20:40 Freq: Status: Active Protocol: Document 11/10/20 08:16 LRN (Rec: 11/10/20 09:10 LRN [id number]) Special Tests Lumbar Spine Special Tests Slump Test Results Negative RLE. Straight Leg Raise Test Results R 60 deg's, L 70 deg's PT-OP-M Strength Start: 11/09/20 20:40 Freq: Status: Active Protocol: Document 11/10/20 08:16 LRN (Rec: 11/10/20 09:10 LRN [id number]) Trunk Strength Trunk Manual Muscle Testing Testing Position Supine Core Stabilization Pt has visible abdominal hernia with MMT of LE's. Pt has fair trunk control with MMT of LE's. Hip Strength Hip Manual Muscle Testing Right Flexion (L2) 5 Normal Abduction 5 Normal Adduction 3 Fair External Rotation 5 Normal Internal Rotation 5 Normal Left Flexion (L2) 4 Good Abduction 5 Normal Adduction 3 Fair External Rotation 5 Normal Internal Rotation 3+ Fair+ PT-OP-Q Treatments Start: 11/09/20 20:40 Freq: Status: Active Protocol: Document 12/05/20 09:04 SP (Rec: 12/05/20 09:51 SP [id number]) Therapeutic Exercises Supine Exercises clamshell Supine Exercise Name added to HEP Resistance Tb #2 Reps/Minutes x10 Comments good response, cued slow pacing control LTR Side bilateral Reps/Minutes 30 x2 B, then over all 55cm Tball core fac LR Comments good feedback response LB relaxing Sidelying Exercises open book Sidelying Exercise Name head with arm (added to HEP) Side bilateral Reps/Minutes x5 each side Comments cued slow pacing movement- good relaxing feedback Sitting Exercises Cervical Rot Sitting Exercise Name Active C rot stretch Side bilateral Reps/Minutes 5' Cervical SB Sitting Exercise Name C SB stretch Side bilateral Reps/Minutes 6' Comments Extra time for stretching with arm by side and behind back Seated Trunk Sidebending Side bilateral Reps/Minutes 6x 10 SH Comments good form, performs at work Seated Trunk Rotation Side bilateral Reps/Minutes 6x 10SH Comments Added to HEP Other Exercises child's pose Other Exercise Name added to HEP Reps/Minutes 3 reps, x20 sec between cat/ camel sets Comments good feedback response cat camel Other Exercise Name added toHEP Reps/Minutes 2x5 reps Comments good feedback response- cued no UT recruitment during cat pos Jayy-reclined Pec stretch Other Exercise Name discussed not performed last tx, doing at home with good understanding Side bilateral Semi-reclined C. Ext Other Exercise Name discussed not performed last tx, doing at home with good understanding Self-Care/Home Management Treatment Education Patient Education Home Exercise Program Other Education Initiated cat camel, child's pose, open book and hooklying clamshell with good feedback response, not taxing feels good. Reviewed breathing throughout ther ex with good demonstration. Activities Self-Care/Home Management Activities DTR achilles tendon BLE- no reflex noted. PT-OP-T Assessment and Plan Start: 11/09/20 20:40 Freq: Status: Active Protocol: Document 12/05/20 09:04 SP (Rec: 12/05/20 09:51 SP [id number]) Physical Therapy Assessment Goals Three Impairment Increasing intermittent onset of LE numbness during the day. Short Term Goal (STG) Pt will be able to decrease vagus tone with deep breathing to include chest breathing and neck stretches. STG Duration 12/16/20 (11/28/20: MET GOAL) (8 Prison Goal (LTG) Pt will be able to manage the intermittent LE numbness with reduction or elimination in onset during the day. LTG Duration 01/21/21 (11/28/20: MET GOAL) Two Impairment Pain/numbness in LE's at night hindering ability to sleep ( pain 5/10). Short Term Goal (STG) Pt will be educated in sleeping positions to minimize onset of numbness of the LE's . (11/17/20: I/S pt in best sleeping positions; 11/28/20: Reviewed sleeping position) STG Duration 11/18/20 (11/28/20: MET GOAL) Prison Goal (LTG) Relieve the nighttime pain to level of 2-3/10 for tolerable sleep. (11/28/20: Frequency of pain is ~1/10 days, but pain when happens was 6/10). LTG Duration 01/21/21 (11/28/20: MET GOAL) One Impairment Pt lacks a self care HEP. Short Term Goal (STG) Pt will be educated in upper thoracic mobility ex's. 12/05/20: progressing, added open book, cat camel for flexibility and hooklying clamshell for core/ hip abd stabilizatoin. STG Duration 11/29/20 Prison Goal (LTG) Pt will be independent in a self care HEP. LTG Duration 01/21/21 Assessment Summary Assessment Pt responded well to ther ex with no adverse affects. No DTR of achilles tendon reflex noted when assess with reflex hammer, shoes removed seated with BLE hanging on EO plinth, per PT request last tx to perform. Repeat HR assessment post ther ex in sitting 30bpm, states feels fine thought but puzzled why so low, will find out more when see PCP this week and is followed by survey statistician with only med changes stated. Physical Therapy Plan Frequency and Duration Frequency of Treatment 2x/Week Plan of Care Start Date 11/10/20 Plan of Care End Date 01/21/21 Therapeutic Interventions Therapeutic Interventions Home Exercise Program,Joint Mobilizations,Manual Therapy, Neuromuscular Re-education, Patient/Caregiver Education, Self-Care/Home Management,Soft Tissue Mobilization,Taping, Therapeutic Activities, Therapeutic Exercises Modalities Cold Pack/Ice Massage,Electric Stimulation,Hot Packs Next Visit Focus/Plan Next Note Type Treatment Note Next Visit Plan Assess response to TS mobility see self assessment notes. POC: Assess LE Achilles DTRs ( w/o shoes on)- completed see notes in assessment. STM: Iliopsoas, lumbar, GI, vagus nerve at SCM, diaphragm JMT for ribs to improve excursion with breathing. Education in positioning for nighttime sleep Education in use of modalities for LB prior to stretching ( heat with precaution due to MS ) and review of use of ice for after.
--- NOTE | 2020-12-05 13:45 | PT-OP ANOTE ---
Pt improving and pt commented PT recommended maybe DC soon. STOCK TRADER called Iesha PT and after phone discussion with Iesha PT, PT recommended cancel next to appts with STOCK TRADER and PT will reassess him on 12/15/20 appt and if continues to be doing well, will DC.
[2020-12-15 09:08] VITALS: PULSE 34; PULSE 35
--- NOTE | 2020-12-15 17:16 | PT.OTN ---
Current Diagnoses Spinal stenosis, lumbosacral region (12/15/20) Muscle weakness (generalized) (12/15/20) Abnormal posture (12/15/20) Physical Therapy Treatment Note PT-OP-A Visit Information Start: 11/09/20 20:40 Freq: Status: Active Protocol: Document 12/15/20 09:08 LRN (Rec: 12/15/20 09:52 LRN [id number]) Out-Patient Physical Therapy Visit Information Visit Information Visit Type Treatment Note Visit Start Time 09:08 Visit Stop Time 09:46 Total Visit Minutes 38 Visit Number 7 Evaluation Information Evaluation Date 11/10/20 Precautions Precautions Very low HR of 30 bpm pre acitivity today 12/05/20. Multiple Sclerosis Neuropathy Controlled HBP PT-OP-B Current Condition Start: 11/09/20 20:40 Freq: Status: Active Protocol: Document 11/10/20 08:16 LRN (Rec: 11/10/20 09:10 LRN [id number]) Current Condition History of Current Condition Onset Date 1 yr, worsening with increased frequency Current Complaints R LE Sciatic pain, and Андрей numbness of legs. History of Current Condition Has had sciatic forever. When legs go numb, he sits down and twists/turns and bends and the numbness goes away. Mostly it is in the afternoon, but yesterday morning he began to feel the symptoms and he did his stretching and was good for the entire day. He knows he has spinal stenosis so he thinks he has a pinched nerve. Happens 5/7 days of the week . Pain at night is pretty bad. Does stretches at night and lays on the floor on ice every night, sometimes goes to chiropractor for back. Also is tired and weak due to low HR (bpm 32) that is currently being monitored due to problem in back of heart. 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 Medications for pain ( Gabapentin & rarely Bland) Future Testing and Treatments Planned Testing for possible pacemaker implant. Developmental History Developmental History HR is 32 and occasionally 60, has been being checked for the past 8 months. Had been taking medications for MS, and was told from taking meds he was some better , and was told to stop taking the medications. L leg weakness from MS. Treatment Goals Patient/Caregiver Goals Pt goal is to relieve the nighttime pain to level of 2-3 /10 for tolerable sleep. Pt goal is to eliminate the intermittent numbness of legs, and HEP. Prior Functional Status Baseline Function- ADL's Independent Baseline Function- Mobility Independent Baseline Function- Gait Independent without assistive device Baseline Function- Work/School Work Baseline Function- Recreation/Hobbies Golfing Baseline Function- Other Helps for past 3 yrs, but no longer physically having to help her. Current Functional Impairments (Reported) Functional Limitations- ADL's Limited in activity tolerance due to numbness of legs occasionally. Pain at night. Personal Factors Other Personal Factors That May Effect MS Therapy/Recovery Low HR of 32 bpm Neuropathy PT-OP-C Subjective Start: 11/09/20 20:40 Freq: Status: Active Protocol: Document 12/15/20 09:08 LRN (Rec: 12/15/20 09:52 LRN [id number]) OP-PT Subjective Patient Comments Patient Comments No questios. Legs haven't gone numb in the last couple of weeks. Does stretches at work. Understands if he keeps up with ex's he will be in good shape. Not having as much vertigo. Patient Questionnaires Oswestry Low Back Index Oswestry Score 5 Oswestry Impairment 1 to 19% Impaired (Score 1-19) PT-OP-H Neuro Start: 11/09/20 20:40 Freq: Status: Active Protocol: Document 12/15/20 09:08 LRN (Rec: 12/15/20 09:52 LRN [id number]) Vital Signs Pulse End of therapy Pulse at Rest (bpm) 35 Pulse Assessment Method Pulse Ox/Monitor At rest sitting Pulse at Rest (bpm) 34 Pulse Assessment Method Pulse Ox/Monitor PT-OP-J Posture/Palpation/Skin Start: 11/09/20 20:40 Freq: Status: Active Protocol: Document 11/10/20 08:16 LRN (Rec: 11/10/20 09:10 LRN [id number]) Posture Evaluation Position Standing Head/C-Spine Posture Forward Head L-Spine Posture Flattened Ankle/Foot Posture (R) Forefoot Abducted Comments Posture Comments Wide stance, L shoulder High, R Trunk shift. Palpation Assessment Location Low Back Palpation Location Spinous Processes with PA glide Palpation Findings Soft Tissue Tightness, Tenderness L PSIS Palpation Location L PSIS Palpation Findings Soft Tissue Tightness, Tenderness PT-OP-K Range of Motion Start: 11/09/20 20:40 Freq: Status: Active Protocol: Document 11/10/20 08:16 LRN (Rec: 11/10/20 09:10 LRN [id number]) Lumbar Spine Range of Motion Lumbar Spine Active Degrees Testing Position Standing Flexion 80 Extension 5 Lateral Flexion Left 15 Lateral Flexion Right 5 Comments LTR mobility worse with knee roll to L (trunk rot R). Active trunk flexion is with 70 deg's hip flexion. Active trunk extension is with 3 deg's hip extension. PT-OP-L Special Tests Start: 11/09/20 20:40 Freq: Status: Active Protocol: Document 11/10/20 08:16 LRN (Rec: 11/10/20 09:10 LRN [id number]) Special Tests Lumbar Spine Special Tests Slump Test Results Negative RLE. Straight Leg Raise Test Results R 60 deg's, L 70 deg's PT-OP-M Strength Start: 11/09/20 20:40 Freq: Status: Active Protocol: Document 11/10/20 08:16 LRN (Rec: 11/10/20 09:10 LRN [id number]) Trunk Strength Trunk Manual Muscle Testing Testing Position Supine Core Stabilization Pt has visible abdominal hernia with MMT of LE's. Pt has fair trunk control with MMT of LE's. Hip Strength Hip Manual Muscle Testing Right Flexion (L2) 5 Normal Abduction 5 Normal Adduction 3 Fair External Rotation 5 Normal Internal Rotation 5 Normal Left Flexion (L2) 4 Good Abduction 5 Normal Adduction 3 Fair External Rotation 5 Normal Internal Rotation 3+ Fair+ PT-OP-Q Treatments Start: 11/09/20 20:40 Freq: Status: Active Protocol: Document 12/15/20 09:08 LRN (Rec: 12/15/20 09:52 LRN [id number]) Therapeutic Exercises Supine Exercises Pec & neck stretch Supine Exercise Name Neck elongation & ext & separate Pec stretch Side bilateral Reps/Minutes 3' clamshell Supine Exercise Name Clamshell Resistance Tb #2 Reps/Minutes 2' Comments good response, cued slow pacing & core control LTR Side bilateral Reps/Minutes 30 x2 B, then over all 55cm Tball core fac LR Comments good feedback response LB relaxing Sidelying Exercises open book Sidelying Exercise Name head with arm (added to HEP) Side bilateral Reps/Minutes x5 each side Comments cued head mvmt with ex Sitting Exercises Sciatic n. glide Side bilateral Reps/Minutes 3' Comments Phys & v. cuing needed to perform ex without pain. Cervical Rot Sitting Exercise Name Active C rot stretch Side bilateral Reps/Minutes 2' Cervical SB Sitting Exercise Name C SB stretch Side bilateral Reps/Minutes 2' Comments Extra time for stretching with arm by side and behind back Seated Trunk Sidebending Side bilateral Reps/Minutes 6x 10 SH Comments good form, performs at work Seated Trunk Flexion Sitting Exercise Name reviewed HEP Side bilateral Equipment Used pillow front Reps/Minutes 6 x 10SH Comments good form, performs at work Seated Trunk Rotation Side bilateral Reps/Minutes 6x 10SH Comments Added to HEP PT-OP-T Assessment and Plan Start: 11/09/20 20:40 Freq: Status: Active Protocol: Document 12/15/20 09:08 LRN (Rec: 12/15/20 09:52 LRN [id number]) Physical Therapy Assessment Goals Three Impairment Increasing intermittent onset of LE numbness during the day. Short Term Goal (STG) Pt will be able to decrease vagus tone with deep breathing to include chest breathing and neck stretches. STG Duration 12/16/20 (11/28/20: MET GOAL) [facility]cf Goal (LTG) Pt will be able to manage the intermittent LE numbness with reduction or elimination in onset during the day. LTG Duration 01/21/21 (11/28/20: MET GOAL) Two Impairment Pain/numbness in LE's at night hindering ability to sleep ( pain 5/10). Short Term Goal (STG) Pt will be educated in sleeping positions to minimize onset of numbness of the LE's . (11/17/20: I/S pt in best sleeping positions; 11/28/20: Reviewed sleeping position) STG Duration 11/18/20 (11/28/20: MET GOAL) Smalltalk Developer Goal (LTG) Relieve the nighttime pain to level of 2-3/10 for tolerable sleep. (11/28/20: Frequency of pain is ~1/10 days, but pain when happens was 6/10). LTG Duration 01/21/21 (11/28/20: MET GOAL) One Impairment Pt lacks a self care HEP. Short Term Goal (STG) Pt will be educated in upper thoracic mobility ex's. 12/05/20: progressing, added open book, cat camel for flexibility and hooklying clamshell for core/ hip abd stabilizatoin. STG Duration 11/29/20 (12/15/20: MET GOAL) Smalltalk Developer Goal (LTG) Pt will be independent in a self care HEP. LTG Duration 01/21/21 ( 12/15/20: MET GOAL ) Assessment Summary Assessment Pt has progressed well with therapy and is no longer experiencing numbness of his legs as his symptoms appear controlled by his independent self care exercise program. Today he demonstrated good recall of his HEP. Oswestry disability index shows improved function with score of 5 (1<20% impaired) from initial of 24 (20<40% impaired ). DTR patellar is normal and DTR Achilles is 0 bilaterally (L5). Pt is ready for discharge to independent HEP. Physical Therapy Plan Other Referrals/Consults Referrals/Consults Recommended Pt referred back to primary care physician for assessment of L upper abdominal pain if reoccurance. Discharge Physical Therapy Discharge Reasons Goals Met Discharge Comments Thank you for your referral. Recent complaints of L upper abdominal pain, pt to seek further medical assessment by primary care physician if pain returns.
== END 2020-12-16 07:39 | disposition home or self-care (01) ==
LOC: PHYS 09:00
PROVIDERS: PCP Family Medicine; Referring Provider Family Medicine; Visit Provider Family Medicine
DX: M48.07 Spinal stenosis, lumbosacral region (principal); M62.81 Muscle weakness (generalized); R29.3 Abnormal posture
CPT/HCPCS: 97110; 97140; 97162; 97535

== ENCOUNTER → 2021-09-02 10:06 | Outpatient (CLI) | payer MEDICARE, SELFPAY ==
[2021-09-02 10:32] LABS: Add Manual Diff / Slide Review NO; Basophils Absolute Auto 100 /uL (0-100); Basophils Percent Auto 2.5 % (0-2); Eosinophils Absolute Auto 200 /uL (0-450); Eosinophils Percent Auto 4.1 % (2-4); Hemoglobin 14.8 g/dL (13.5-17.5); Lymphocytes Absolute Auto 1500 /uL (1100-4500); Mean Corpuscular HGB Conc 34.5 % (30-36); Mean Corpuscular Hemoglobin 31.7 PG (26-34); Mean Corpuscular Volume 91.7 fL (80-100); Monocytes Absolute Auto 500 /uL (0-900); Monocytes Percent Auto 10.2 % (3-14); Neutrophils Absolute Auto 2300 /uL (1500-7000); Neutrophils Percent Auto 51.2 % (50-75); Platelet Count 157 X10^3/uL (150-400); Red Blood Cell Count 4.69 X10^6/uL (4.5-5.9); Red Cell Distribution Width 12.9 % (11.6-14.8); White Blood Cell Count 4.6 X10^3/uL (4.5-11.0)
[2021-09-02 10:37] LABS: Hemoglobin A1C% w Est Avg Glu 6.8 % (4.0-6.0)
[2021-09-02 10:40] LABS: Alanine Aminotransferase 32 IU/L (<50); Albumin 4.2 g/dL (3.5-5.0); Albumin Globulin Ratio 1.4 (1.0-2.8); Alkaline Phosphatase 60 U/L (38-126); Aspartate Aminotransferase 24 IU/L (17-59); BUN Creatinine Ratio 16.3 (6-22); Bilirubin Total 0.9 mg/dL (0.2-1.3); Blood Urea Nitrogen 20 mg/dL (9-20); Calcium 9.2 mg/dL (8.4-10.2); Carbon Dioxide 28 mmol/L (22-32); Chloride 107 mmol/L (98-107); Cholesterol 157 mg/dL (140-199); Estimated Glomerular Filt Rate > 60 mL/min (>60); Globulin 2.9 g/dL (1.7-4.1); Glucose 160 mg/dL (80-110); HDL Cholesterol 39 mg/dL (40-60); HEMOLYSIS < 15 (0-50); LDL Cholesterol Calculated 59 mg/dL (<100); Potassium 4.6 mmol/L (3.4-5.1); Sodium 139 mmol/L (137-145); Total Protein 7.1 g/dL (6.3-8.2); Triglycerides 293 mg/dL (35-150)
[2021-09-02 10:58] LABS: Free T4, Direct Thyroxine 1.24 ng/dL (0.78-2.19)
[2021-09-02 11:11] LABS: Prostate Specific Antigen Scrn 1.67 ng/mL (0.1-4.0); Thyroid Stimulating Hormone 0.653 uIU/mL (0.47-4.68)
[2021-09-04 15:49] LABS: Hepatitis B Surface Antigen NEGATIVE s/c (NEGATIVE)
== END ==
PROVIDERS: PCP Family Medicine; Referring Provider Family Medicine; Visit Provider Family Medicine
DX: E03.9 Hypothyroidism, unspecified (principal); E78.5 Hyperlipidemia, unspecified; Z12.5 Encounter for screening for malignant neoplasm of prostate; I10 Essential (primary) hypertension; I48.91 Unspecified atrial fibrillation
CPT/HCPCS: 36415; 80053; 80061; 83036; 84439; 84443; 85025; 87340; G0103

== ENCOUNTER → 2022-01-06 10:02 | Outpatient (CLI) | payer MEDICARE, SELFPAY ==
[2022-01-06 11:40] LABS: Add Manual Diff / Slide Review NO; Basophils Absolute Auto 100 /uL (0-100); Basophils Percent Auto 0.9 % (0-2); Eosinophils Absolute Auto 200 /uL (0-450); Eosinophils Percent Auto 2.8 % (2-4); Hematocrit 41.7 % (41-53); Hemoglobin 14.1 g/dL (13.5-17.5); Lymphocytes Absolute Auto 1500 /uL (1100-4500); Lymphocytes Percent Auto 26.5 % (25-40); Mean Corpuscular HGB Conc 33.8 % (30-36); Mean Corpuscular Hemoglobin 31.1 PG (26-34); Monocytes Absolute Auto 500 /uL (0-900); Monocytes Percent Auto 8.1 % (3-14); Neutrophils Absolute Auto 3500 /uL (1500-7000); Neutrophils Percent Auto 61.7 % (50-75); Platelet Count 175 X10^3/uL (150-400); Red Blood Cell Count 4.53 X10^6/uL (4.5-5.9); Red Cell Distribution Width 13.2 % (11.6-14.8); White Blood Cell Count 5.6 X10^3/uL (4.5-11.0)
[2022-01-06 11:52] LABS: Alanine Aminotransferase 26 IU/L (<50); Albumin 4.1 g/dL (3.5-5.0); Albumin Globulin Ratio 1.2 (1.0-2.8); Alkaline Phosphatase 65 U/L (38-126); Aspartate Aminotransferase 21 IU/L (17-59); BUN Creatinine Ratio 17.1 (6-22); Bilirubin Total 0.9 mg/dL (0.2-1.3); Blood Urea Nitrogen 21 mg/dL (9-20); Carbon Dioxide 26 mmol/L (22-32); Chloride 105 mmol/L (98-107); Cholesterol 130 mg/dL (140-199); Estimated Glomerular Filt Rate > 60 mL/min (>60); Globulin 3.5 g/dL (1.7-4.1); Glucose 170 mg/dL (80-110); HDL Cholesterol 34 mg/dL (40-60); HEMOLYSIS < 15 (0-50); LDL Cholesterol Calculated 62 mg/dL (<100); Potassium 4.5 mmol/L (3.4-5.1); Sodium 140 mmol/L (137-145); Total Protein 7.6 g/dL (6.3-8.2); Triglycerides 168 mg/dL (35-150)
[2022-01-06 11:57] LABS: Hemoglobin A1C% w Est Avg Glu 6.7 % (4.0-6.0)
[2022-01-06 12:08] LABS: Free T4, Direct Thyroxine 1.36 ng/dL (0.78-2.19)
[2022-01-06 12:22] LABS: Thyroid Stimulating Hormone 0.676 uIU/mL (0.47-4.68)
[2022-01-06 12:23] LABS: Creatinine Urine Random 86.3 mg/dL
[2022-01-06 12:29] LABS: Microalbumi Creatinin Ratio Ur 8.1 ug/mg CR (<30); Microalbumin Urine Random 0.7 mg/dL (0-1.6)
== END ==
PROVIDERS: PCP Family Medicine; Referring Provider Family Medicine; Visit Provider Family Medicine
DX: E03.9 Hypothyroidism, unspecified (principal); E11.9 Type 2 diabetes mellitus without complications; E78.2 Mixed hyperlipidemia; I10 Essential (primary) hypertension
CPT/HCPCS: 36415; 80053; 80061; 82043; 82570; 83036; 84439; 84443; 85025

== ENCOUNTER → 2022-01-12 15:36 | Outpatient (CLI) | payer MEDICARE, SELFPAY ==
--- NOTE | 2022-01-12 15:37 | DI.RAD.S_ITS ---
PROCEDURE: XR SHOULDER RT MIN 2V INDICATIONS: progressive pain TECHNIQUE: 3 views of the shoulder were acquired. COMPARISON: None. FINDINGS: Bones: No fractures or dislocations. No suspicious bony lesions. Visualized ribs appear intact. Soft tissues: No suspicious soft tissue calcifications. IMPRESSION: Unremarkable right shoulder radiographs Approved by: Kyree Wilks M.D. on 01/12/2022 at 16:06
--- NOTE | 2022-01-12 15:37 | DI.RAD.S_ITS ---
PROCEDURE: XR HIP W PEL IF DONE LT 2V INDICATIONS: progressive pain TECHNIQUE: AP pelvis with lateral view(s) of the left hip(s). COMPARISON: MR, L-SPINE WITHOUT CONTRAST, 03/29/2015, 15:02. [facility], CR, HIP 2V LEFT, 10/15/2008, 8:40. FINDINGS: Bones: No fractures or dislocations. Pelvic ring appears intact. No suspicious bony lesions. [id number] symmetric hip and sacroiliac joint degeneration bilaterally. There is moderate degenerative disc and facet disease in the lower lumbar spine. Soft tissues: The visualized bowel gas pattern is normal. No suspicious soft tissue calcifications. IMPRESSION: 1. 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 Dictated by: Libby Sena M.D. on 01/12/2022 at 17:29 Approved by: Libby Sena M.D. on 01/12/2022 at 17:30
== END ==
PROVIDERS: PCP Family Medicine; Referring Provider Family Medicine; Visit Provider Family Medicine
DX: M16.0 Bilateral primary osteoarthritis of hip (principal); M46.1 Sacroiliitis, not elsewhere classified; M25.551 Pain in right hip; M25.512 Pain in left shoulder
CPT/HCPCS: 73030; 73502

== ENCOUNTER → 2022-03-09 18:23 | Outpatient (CLI) | payer MEDICARE, SELFPAY ==
--- NOTE | 2022-03-09 18:24 | DI.MRI.S_ITS ---
PROCEDURE: MR HIP LT WO CON INDICATIONS: Persistent discomfort left hip upon arising TECHNIQUE: Noncontrast coronal T1 spin echo and STIR through the bony pelvis. Coronal and axial T2 fast spin echo with fat saturation, sagittal T1 spin echo, and oblique axial T2 fast spin echo with fat saturation through the hip. COMPARISON: None. FINDINGS: Image quality: Motion degraded Bones: Pelvic ring: Intact Femoral head and neck: No fracture. No osteonecrosis. Ligamentum teres: Intact. Lumbar spine and sacrum: Partially seen degenerative changes. No acute edema. Tendons: Abductors: [id number] insertional tendinopathy and possible partial tear of the minimus. Adductors and rectus abdominis: Intact. No pubic symphyseal edema. IT band: Intact. Iliopsoas: Intact. No bursitis. Hamstrings: [id number] tendinopathy at the left origin. Rectus femoris: Intact. Sartorius: Not well seen Joint: Joint space: No significant effusion. Labrum: Not well assessed on this study. No discrete tear is identified. There is likely attenuation related to degeneration with some signal abnormality. Cartilage: Moderate degenerative changes with focal marrow edema at the anterior superior acetabulum, and scattered subchondral cystic changes. Soft tissues: Quadratus femoris: No edema or atrophy. Piriformis: Symmetric. Intrapelvic structures: Not well evaluated. No pathologic fluid, aneurysm, lymphadenopathy, or suspicious mass. No bowel obstruction. Bladder is unremarkable. Suspected BPH. IMPRESSION: Motion degraded non arthrographic MRI. Moderate left hip degenerative changes with subchondral edema and cystic changes of the acetabulum. There is also suspected tendinopathy of the abductors and hamstrings origins. Attenuated labrum with some signal abnormality. Findings are less severe in the partially visualized right hip joint. There is also partially seen lumbosacral spondylosis. Dictated by: Krunal Whitaker M.D. on 03/12/2022 at 9:43 Approved by: Krunal Whitaker M.D. on 03/12/2022 at 9:51
== END ==
PROVIDERS: Family Provider Family Medicine; PCP Family Medicine; Referring Provider Family Medicine; Visit Provider Family Medicine
DX: M25.552 Pain in left hip (principal); M47.817 Spondylosis without myelopathy or radiculopathy, lumbosacral region
CPT/HCPCS: 73721

== ENCOUNTER 2022-08-06 08:15 | Outpatient (RCR) | payer MEDICARE, SELFPAY ==
--- NOTE | 2022-02-22 19:07 | PT.OIE ---
Current Diagnoses Pain in right shoulder (02/22/22) Pain in left hip (02/22/22) Muscle weakness (generalized) (02/22/22) Past Medical History (Last Reviewed 01/12/22 @ 15:41 by Titus Ramirez DO) Atrial fibrillation BPH (benign prostatic hyperplasia) (Unknown) Cardiac arrhythmia (Unknown) Diabetes (Unknown) History of kidney stones (Unknown) Hyperlipidemia (Unknown) Hypertension (Unknown) Hypothyroidism Left hip pain Left shoulder pain Multiple sclerosis (1989) Obstructive sleep apnea (Unknown) Right abducens nerve palsy Right hip pain Right shoulder pain Sciatica (Unknown) Sinus arrhythmia seen on electrocardiogram Type 2 diabetes mellitus Past Surgical History (Last Reviewed 01/12/22 @ 15:41 by Titus Ramirez DO) History of tonsillectomy Visit Care Team Role Provider Type Titus Ramirez DO Attending Provider Physician Family Provider Primary Care Provider Referring Provider Specialty: [facility] Practice Address: [address] [place] [address] Email: [email or web address] Initial Evaluation PT-OP-A Visit Information Start: 02/20/22 20:05 Freq: Status: Active Protocol: Document 02/22/22 08:16 LRN (Rec: 02/22/22 18:59 LRN [id number]) Out-Patient Physical Therapy Visit Information Visit Information Visit Type Initial Evaluation Visit Start Time 08:16 Visit Stop Time 09:10 Total Visit Minutes 54 Visit Number Evaluation Information Evaluation Date 02/22/22 Precautions Precautions Uncontrolled very Low HR (36) > Low HR (60), Multiple Sclerosis, chronic back pain, Neuropathy, Dizziness, SOB, Controlled HBP , hx of A.Fib & Kidney stones. PT-OP-B Current Condition Start: 02/20/22 20:05 Freq: Status: Active Protocol: Document 02/22/22 08:16 LRN (Rec: 02/22/22 18:59 LRN [id number]) Current Condition History of Current Condition Onset Date ~12/04/21 L hip, ~12/18/21 R shoulder. Current Complaints Pain with movement at L hip and R shoulder. L hip worse than R shoulder. History of Current Condition Mid November got out of chair, and heard a pop in L hip, and felt severe pain inferior to the L ASIS. A week later was reaching up to grab something and heard a pop in the posterior R shoulder. Pt indicated pain was posterior to the acromion process. Pt denies bruising. Pt reports with walking there is pain in the L anterior hip on stance phase while shifting onto RLE. He can picking tech heavy things off the floor with his R shoulder, but has pain with moving the arm away from the body out to the side and fwd ~ 80 deg's. Pain is stabbing and sharp in nature. Pt requests focus of therapy on R hip to start. Prior Treatments and Tests X-rays: Unremarkable. Treatment Goals Patient/Caregiver Goals Pt goal is to be able to put socks on and walk without L hip pain. Improve sleep without pain of R shoulder. Improve ability to move the R shoulder without pain. Prior Functional Status Baseline Function- ADL's Independent Baseline Function- Mobility Independent Baseline Function- Gait Ambulated without assistive device without pain. Baseline Function- Work/School Works FT at [employer]. Baseline Function- Recreation/Hobbies No limitations with R UE movement and just went back to playing golf, 1x before injury. Baseline Function- Other Occasionally wakes during the night due to aching legs, no pain at L hip or R shoulder. Current Functional Impairments (Reported) Functional Limitations- ADL's Wakes 2 times per night from R shoulder pain when rolling on it. must help putting L socks on because can't bend over far enough to put socks on. Functional Limitations- Mobility/Gait L anterior hip pain with gait. 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 Extreme difficulty shifting gears with R UE in workplace van due to R shoulder pain and weakness. Personal Factors Other Personal Factors That May Effect is having health problems Therapy/Recovery . L leg weakness due to Multiple Sclerosis. Uncontrolled low HR (36>60) PT-OP-C Subjective Start: 02/20/22 20:05 Freq: Status: Active Protocol: Document 02/22/22 08:16 ELIELN (Rec: 02/22/22 18:59 LRN [id number]) Patient Questionnaires Lower Extremity Functional Scale LEFS Score 43 LEFS Impairment 40 to 59% Impaired (Score 32- 47) Quick Dash- Upper Extremity Quick Dash UE Score 38.63 Quick Dash UE Impairment 20 to 39% Impaired (Score 20- 39) OP-PT Pain Assessment Pain Assessment Grid Paper Pain Assessment Grid Completed Yes Location L hip Pain Location Details Inferior to L ASIS Intensity 5 Scale Used Numeric (0 - 10) Description Aching Frequency Intermittent Other Pain Aggravating Factors Pain with movement. Other Pain Alleviating Factors Icy Hot - not helpful. R shoulder Pain Location Details Lateral R shoulder behind acromion process Intensity 6 Scale Used Numeric (0 - 10) Description Sharp,Stabbing Frequency Intermittent Pain Aggravating Factors Changing Position Other Pain Aggravating Factors Pain with movement and lying on it. PT-OP-D Balance Start: 02/20/22 20:05 Freq: Status: Active Protocol: Document 02/22/22 08:16 LRN (Rec: 02/22/22 18:59 LRN [id number]) Balance Tests Single Limb Standing Single Limb- Right 2 secs Single Limb- Left 1-4 secs PT-OP-E Functional Tests Start: 02/20/22 20:05 Freq: Status: Active Protocol: Document 02/22/22 08:16 LRN (Rec: 02/22/22 18:59 LRN [id number]) Functional Tests Apley's Scratch Test Action 1- Left Behind shoulder - Supraspintus Action 1- Right lateral L brachium Action 2- Left overhead T2 Action 2- Right C3 Action 3- Left behind back L4 Action 3- Right R PSIS PT-OP-G Mobility & Gait Start: 02/20/22 20:05 Freq: Status: Active Protocol: Document 02/22/22 08:16 LRN (Rec: 02/22/22 18:59 LRN [id number]) OP Mobility Evaluation Transfers Sit to Stand Independent with use of L UE's to help push at knee. Bed to Chair Transfers Independent with pain and use of UE's Car Transfers Inpependent with pain, but has much difficulty using a van ( getting in, really hurts; R shoulder hurts shifting car with automatic - lifting lever ; can't lift cup of water due to not able to lift with arm out to the side). OP Gait Assessment Comments Gait Comments Lacks hip shift L, Trunk shifted R with lean to R. PT-OP-H Neuro Start: 02/20/22 20:05 Freq: Status: Active Protocol: Document 02/22/22 08:16 LRN (Rec: 02/22/22 18:59 LRN [id number]) Sensation Evaluation Gross Sensation Gross Sensation WNL PT-OP-J Posture/Palpation/Skin Start: 02/20/22 20:05 Freq: Status: Active Protocol: Document 02/22/22 08:16 LRN (Rec: 02/22/22 18:59 LRN [id number]) Posture Evaluation Position Standing Head/C-Spine Posture Side Bent Right,Forward Head L-Spine Posture Flattened,Shifted Right Shoulder Posture (L) Elevated Scapula Posture (R) Depressed Weight Distribution Weight Shifted Left Comments Posture Comments Sits with RLE extended. Palpation Assessment Location L hip Palpation Location L hip medial to ASIS and at TFL Palpation Findings Tenderness R shoulder Palpation Location R Subscapular attachment at GHJ Palpation Findings Tenderness PT-OP-K Range of Motion Start: 02/20/22 20:05 Freq: Status: Active Protocol: Document 02/22/22 08:16 LRN (Rec: 02/22/22 18:59 LR [id number]) Shoulder Goniometric Range of Motion Shoulder Right Active Testing Position Standing Flexion 57 Extension 30 Abduction 42 External Rotation at 0 degrees Abduction 50 Left Active Testing Position Standing Flexion 132 Extension 65 Abduction 150 External Rotation at 0 degrees Abduction 65 Hip Goniometric Range of Motion Hip Left Passive Hip ROM WFL No Testing Position Supine Extension 0 Internal Rotation 30 External Rotation 30 Right Passive Hip ROM WFL Yes Testing Position Supine Extension 10 Internal Rotation 30 External Rotation 50 PT-OP-L Special Tests Start: 02/20/22 20:05 Freq: Status: Active Protocol: Document 02/22/22 08:16 LRN (Rec: 02/22/22 18:59 LRN [id number]) Special Tests Shoulder Special Tests Elevation Impingement Test Results + R shoulder Hip Special Tests Young Test Results + L hip Comments Possible Hip flexor strain PT-OP-M Strength Start: 02/20/22 20:05 Freq: Status: Active Protocol: Document 02/22/22 08:16 LRN (Rec: 02/22/22 18:59 LRN [id number]) Shoulder Strength Shoulder Manual Muscle Testing Right Flexion 2+ Poor+ Abduction (C5) 2 Poor External Rotation 4 Good Internal Rotation 3+ Fair+ Comments Strength limited due to pain. Left Comments Generally 5/5 Hip Strength Hip Manual Muscle Testing Left Flexion (L2) 3+ Fair+ External Rotation 3 Fair Internal Rotation 5 Normal Comments Deferred hip ext testing due to pain. PT-OP-Q Treatments Start: 02/20/22 20:05 Freq: Status: Active Protocol: Document 02/22/22 08:16 LRN (Rec: 02/22/22 18:59 LRN [id number]) Self-Care/Home Management Treatment Activities Self-Care/Home Management Activities Discussed results of evaluation, goals, and plan of care (POC). Pt agreeable to goals and POC. Pt agreeable to focus initially on rehabilitation for his L hip, then switch focus on the shoulder once he is able to dress himself. PT-OP-T Assessment and Plan Start: 02/20/22 20:05 Freq: Status: Active Protocol: Document 02/22/22 08:16 LRN (Rec: 02/22/22 18:59 LRN [id number]) Physical Therapy Assessment Rehab Potential Rehabilitation Potential Excellent Evaluation Complexity Number of Personal Factors/Comorbidities 1-2 Number of Body Systems Impaired 4 or More Clinical Presentation at Evaluation Evolving Impairments Impairments Activity Tolerance,Functional Activities,Functional Mobility ,Gait,Pain,Posture,ROM,Soft Tissue Mobility,Strength, Transfers Other Impairments Functional impairments of getting in/out of car, walking , dressing (putting L sock on) , lifting cup, shifting gears in workplace van (automatic van). Goals Four Impairment Decreased R shoulder ROM due to pain. Impairment R shoulder pain rated 6/10 at posterior to acromion process with movement. R shoulder AROM (sitting, in deg's): Flex 57, AB 42, ER 50 (0 deg's ER), IR reaching behind back to R PSIS. L shoulder AROM (sitting, in deg's): Flex 132, AB 150, ER 65 (0 deg's ER), IR reaching behind back to L4. Short Term Goal (STG) Improve ability to move the R shoulder with pt able to reach for feet with minimal R shoulder pain/discomfort. STG Duration 04/07/22 Technical Solutions Engineer Goal (LTG) Improve ability to move the R shoulder with pt able to reach overhead with minimal R shoulder pain/discomfort. LTG Duration 05/23/22 Three Impairment R shoulder pain interrupting sleep at night. Impairment Wakes 2 times per night from R shoulder pain (rated 6/10), primarily when rolling on it. UE QuickDASH score 38.63 (20- 39% impaired) R shoulder strength: Flex 2+/ 5, AB 2/5, ER 4/5, IR 3+/5. L shldr is generally 5/5. Short Term Goal (STG) Improve UE QuickDASH score to 19 or less (1-19% impaired). STG Duration 04/07/22 Residential Goal (LTG) Improve R shoulder strength with pt able to sleep longer with occasionally waking during the night, mostly without R shoulder pain. LTG Duration 05/23/22 Two Impairment L hip pain limiting functional movement and gait Impairment Intermittent L hip pain rated 5/10. Pt not able to don/doff socks independently. LEFS score 43/80 (40-59% impaired) Short Term Goal (STG) Pt will be able to walk without L anterior hip pain and improve function per LEFS score 49-62 (20-39% impaired). STG Duration 04/07/22 Technical Solutions Engineer Goal (LTG) Pt will be able to don/doff his L sock/shoes independently without or minimal L anterior hip pain, or demonstrate improved function per LEFS score greater than 62. LTG Duration 05/23/22 One Impairment Lacks appropriate self care HEP Short Term Goal (STG) Pt will be educated in best posturing for nighttime sleep and getting in/out of car. STG Duration 03/02/22 Technical Solutions Engineer Goal (LTG) Pt will be independent on a self care HEP to promote L hip mobility and strengthing in areas of deficit and L shoulder ROM/rotator cuff & scapular stabilizing exercises . LTG Duration 05/23/22 Assessment Summary Assessment Pt presents with R internal impingment syndrome indicating rotator cuff dysfunction, probably of the supraspinatus, but imaging will be necessary to identify internal derangement. The pt's L hip appears to be elicited with extension provocation to the hip; therefore indicating hip flexor involvement. Further assessment will be needed in his subsequent visits to assess for possible lumbar involvement. The pt's pain is specfically in the L groin region; therefore if the low back is cleared, the pt might be assessed for referred groin pain from kidney stones. The pt is limited in functional mobility and strength of the L hip and R shoulder, but the pt is most bothered by his lack of ability to independently dress due to the L hip pain; therefore the pt requests focus of therapy first on the L hip until he is able to don/ doff his socks/shoes independently; then treatment will focus on his R shoulder. The pt will benefit from skilled physical therapy to achieve the above stated goals . Physical Therapy Plan Frequency and Duration Frequency of Treatment 2x/Week Plan of Care Start Date 02/22/22 Plan of Care End Date 04/07/22 Therapeutic Interventions Therapeutic Interventions Gait Training,Home Exercise Program,Joint Mobilizations, Manual Therapy,Neuromuscular Re-education,Patient/Caregiver Education,Self-Care/Home Management,Soft Tissue Mobilization,Taping, Therapeutic Activities, Therapeutic Exercises Modalities Cold Pack/Ice Massage,Hot Packs,Ultrasound Next Visit Focus/Plan Next Note Type Treatment Note Next Visit Plan Assess TUG. Assess PSLR due to trunk lean R and possible L /S involvment for L hip pain. If no indication of hip or LBP, possible kidney involvement with pt's kidney stone history. Assess L hip and R hip AB/AD strength and special tests to rule out L SIJ/intra-articular joint dysfunction. Start HEP: L hip stretches for flex, ER,
--- NOTE | 2022-02-26 15:20 | PT.OTN ---
Current Diagnoses Pain in right shoulder (02/26/22) Pain in left hip (02/26/22) Muscle weakness (generalized) (02/26/22) Physical Therapy Treatment Note PT-OP-A Visit Information Start: 02/20/22 20:05 Freq: Status: Active Protocol: Document 02/26/22 09:02 LRN (Rec: 02/26/22 12:41 LRN [id number]) Out-Patient Physical Therapy Visit Information Visit Information Visit Type Treatment Note Visit Start Time 09:02 Visit Stop Time 09:46 Total Visit Minutes 44 Visit Number Evaluation Information Evaluation Date 02/22/22 Precautions Precautions Uncontrolled very Low HR (36) > Low HR (60), Multiple Sclerosis, chronic back pain, Neuropathy, Dizziness, SOB, Controlled HBP , hx of A.Fib & Kidney stones. PT-OP-B Current Condition Start: 02/20/22 20:05 Freq: Status: Active Protocol: Document 02/22/22 08:16 LRN (Rec: 02/22/22 18:59 LRN [id number]) Current Condition History of Current Condition Onset Date ~12/04/21 L hip, ~12/18/21 R shoulder. Current Complaints Pain with movement at L hip and R shoulder. L hip worse than R shoulder. History of Current Condition Mid November got out of chair, and heard a pop in L hip, and felt severe pain inferior to the L ASIS. A week later was reaching up to grab something and heard a pop in the posterior R shoulder. Pt indicated pain was posterior to the acromion process. Pt denies bruising. Pt reports with walking there is pain in the L anterior hip on stance phase while shifting onto RLE. He can pick pulling machine tender heavy things off the floor with his R shoulder, but has pain with moving the arm away from the body out to the side and fwd ~ 80 deg's. Pain is stabbing and sharp in nature. Pt requests focus of therapy on R hip to start. Prior Treatments and Tests X-rays: Unremarkable. Treatment Goals Patient/Caregiver Goals Pt goal is to be able to put socks on and walk without L hip pain. Improve sleep without pain of R shoulder. Improve ability to move the R shoulder without pain. Prior Functional Status Baseline Function- ADL's Independent Baseline Function- Mobility Independent Baseline Function- Gait Ambulated without assistive device without pain. Baseline Function- Work/School Works FT at [employer]. Baseline Function- Recreation/Hobbies No limitations with R UE movement and just went back to playing golf, 1x before injury. Baseline Function- Other Occasionally wakes during the night due to aching legs, no pain at L hip or R shoulder. Current Functional Impairments (Reported) Functional Limitations- ADL's Wakes 2 times per night from R shoulder pain when rolling on it. must help putting L socks on because can't bend over far enough to put socks on. Functional Limitations- Mobility/Gait L anterior hip pain with gait. 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 Extreme difficulty shifting gears with R UE in workplace van due to R shoulder pain and weakness. Personal Factors Other Personal Factors That May Effect is having health problems Therapy/Recovery . L leg weakness due to Multiple Sclerosis. Uncontrolled low HR (36>60) PT-OP-C Subjective Start: 02/20/22 20:05 Freq: Status: Active Protocol: Document 02/26/22 09:02 LRN (Rec: 02/26/22 12:41 LRN [id number]) OP-PT Subjective Patient Comments Patient Comments Went to regular MD on 02/21/22 and will be getting a CAT scan of the hip. PT-OP-D Balance Start: 02/20/22 20:05 Freq: Status: Active Protocol: Document 02/22/22 08:16 LRN (Rec: 02/22/22 18:59 LRN [id number]) Balance Tests Single Limb Standing Single Limb- Right 2 secs Single Limb- Left 1-4 secs PT-OP-E Functional Tests Start: 02/20/22 20:05 Freq: Status: Active Protocol: Document 02/26/22 09:02 LRN (Rec: 02/26/22 12:41 LRN [id number]) Functional Tests Timed Up and Go (TUG) Score 9 secs Comments Webbed chair and slip on shoes . TUG Impairment Rating 0% Impaired (Score 10) PT-OP-G Mobility & Gait Start: 02/20/22 20:05 Freq: Status: Active Protocol: Document 02/22/22 08:16 LRN (Rec: 02/22/22 18:59 LRN [id number]) OP Mobility Evaluation Transfers Sit to Stand Independent with use of L UE's to help push at knee. Bed to Chair Transfers Independent with pain and use of UE's Car Transfers Inpependent with pain, but has much difficulty using a van ( getting in, really hurts; R shoulder hurts shifting car with automatic - lifting lever ; can't lift cup of water due to not able to lift with arm out to the side). OP Gait Assessment Comments Gait Comments Lacks hip shift L, Trunk shifted R with lean to R. PT-OP-H Neuro Start: 02/20/22 20:05 Freq: Status: Active Protocol: Document 02/22/22 08:16 LRN (Rec: 02/22/22 18:59 LRN [id number]) Sensation Evaluation Gross Sensation Gross Sensation WNL PT-OP-J Posture/Palpation/Skin Start: 02/20/22 20:05 Freq: Status: Active Protocol: Document 02/22/22 08:16 LRN (Rec: 02/22/22 18:59 LRN [id number]) Posture Evaluation Position Standing Head/C-Spine Posture Side Bent Right,Forward Head L-Spine Posture Flattened,Shifted Right Shoulder Posture (L) Elevated Scapula Posture (R) Depressed Weight Distribution Weight Shifted Left Comments Posture Comments Sits with RLE extended. Palpation Assessment Location L hip Palpation Location L hip medial to ASIS and at TFL Palpation Findings Tenderness R shoulder Palpation Location R Subscapular attachment at GHJ Palpation Findings Tenderness PT-OP-K Range of Motion Start: 02/20/22 20:05 Freq: Status: Active Protocol: Document 02/22/22 08:16 LRN (Rec: 02/22/22 18:59 LRN [id number]) Shoulder Goniometric Range of Motion Shoulder Right Active Testing Position Standing Flexion 57 Extension 30 Abduction 42 External Rotation at 0 degrees Abduction 50 Left Active Testing Position Standing Flexion 132 Extension 65 Abduction 150 External Rotation at 0 degrees Abduction 65 Hip Goniometric Range of Motion Hip Left Passive Hip ROM WFL No Testing Position Supine Extension 0 Internal Rotation 30 External Rotation 30 Right Passive Hip ROM WFL Yes Testing Position Supine Extension 10 Internal Rotation 30 External Rotation 50 PT-OP-L Special Tests Start: 02/20/22 20:05 Freq: Status: Active Protocol: Document 02/26/22 09:02 LRN (Rec: 02/26/22 12:41 LRN [id number]) Special Tests Lumbar Spine Special Tests Straight Leg Raise Test Results + PSLR - 60 deg's Comments Hamstring tight Hip Special Tests Piriformis Test Results - left Stinchfield Resisted Hip Flexion Test Results + left Scour Test Test Results + left Log Roll Test Test Results + left ISA Test Results + left Comments Painful in anterior hip with positioning Posterior Labral Test Test Results + left Anterior Labral Test Test Results + left PT-OP-M Strength Start: 02/20/22 20:05 Freq: Status: Active Protocol: Document 02/22/22 08:16 LRN (Rec: 02/22/22 18:59 LRN [id number]) Shoulder Strength Shoulder Manual Muscle Testing Right Flexion 2+ Poor+ Abduction (C5) 2 Poor External Rotation 4 Good Internal Rotation 3+ Fair+ Comments Strength limited due to pain. Left Comments Generally 5/5 Hip Strength Hip Manual Muscle Testing Left Flexion (L2) 3+ Fair+ External Rotation 3 Fair Internal Rotation 5 Normal Comments Deferred hip ext testing due to pain. PT-OP-Q Treatments Start: 02/20/22 20:05 Freq: Status: Active Protocol: Document 02/26/22 09:02 LRN (Rec: 02/26/22 12:41 LRN [id number]) Therapeutic Exercises Supine Exercises Hip ER stretch Supine Exercise Name Manual ER stretch Side left Hip IR stretch Supine Exercise Name Manual IR stretch Side left Hamstring stretch Supine Exercise Name Hamstring/LE stretch Side left Reps/Minutes x3 Prone Exercises Hip ER stretch Prone Exercise Name Hip C/R ER stretch Side left Hip IR stretch Prone Exercise Name Hip IR stretch - GI stretching Side left Sitting Exercises Active Shoulder ER/IR Sitting Exercise Name Sitting [facility] wipe Hamstring/LE neural stretch Sitting Exercise Name Hamstring/LE neural stretch Side left Reps/Minutes 3' Standing Exercises Gait Standing Exercise Name Gait for stability Reps/Minutes 3' Comments TUG taken Self-Care/Home Management Treatment Education Patient Education Posture Other Education Posture education PT-OP-T Assessment and Plan Start: 02/20/22 20:05 Freq: Status: Active Protocol: Document 02/26/22 09:02 LRN (Rec: 02/26/22 12:41 LRN [id number]) Physical Therapy Assessment Goals Four Impairment Decreased R shoulder ROM due to pain. Impairment R shoulder pain rated 6/10 at posterior to acromion process with movement. R shoulder AROM (sitting, in deg's): Flex 57, AB 42, ER 50 (0 deg's ER), IR reaching behind back to R PSIS. L shoulder AROM (sitting, in deg's): Flex 132, AB 150, ER 65 (0 deg's ER), IR reaching behind back to L4. Short Term Goal (STG) Improve ability to move the R shoulder with pt able to reach for feet with minimal R shoulder pain/discomfort. STG Duration 04/07/22 Information Specialist Goal (LTG) Improve ability to move the R shoulder with pt able to reach overhead with minimal R shoulder pain/discomfort. LTG Duration 05/23/22 Three Impairment R shoulder pain interrupting sleep at night. Impairment Wakes 2 times per night from R shoulder pain (rated 6/10), primarily when rolling on it. UE QuickDASH score 38.63 (20- 39% impaired) R shoulder strength: Flex 2+/ 5, AB 2/5, ER 4/5, IR 3+/5. L shldr is generally 5/5. Short Term Goal (STG) Improve UE QuickDASH score to 19 or less (1-19% impaired). STG Duration 04/07/22 Usp Goal (LTG) Improve R shoulder strength with pt able to sleep longer with occasionally waking during the night, mostly without R shoulder pain. LTG Duration 05/23/22 Two Impairment L hip pain limiting functional movement and gait Impairment Intermittent L hip pain rated 5/10. Pt not able to don/doff socks independently. LEFS score 43/80 (40-59% impaired) Short Term Goal (STG) Pt will be able to walk without L anterior hip pain and improve function per LEFS score 49-62 (20-39% impaired). STG Duration 04/07/22 Information Specialist Goal (LTG) Pt will be able to don/doff his L sock/shoes independently without or minimal L anterior hip pain, or demonstrate improved function per LEFS score greater than 62. LTG Duration 05/23/22 One Impairment Lacks appropriate self care HEP Short Term Goal (STG) Pt will be educated in best posturing for nighttime sleep and getting in/out of car. STG Duration 03/02/22 Information Specialist Goal (LTG) Pt will be independent on a self care HEP to promote L hip mobility and strengthing in areas of deficit and L shoulder ROM/rotator cuff & scapular stabilizing exercises . LTG Duration 05/23/22 Assessment Summary Assessment With palpation pt had minimal LBP except at L1-L3 at Spinous processes; therefore pt'a L anterior hip pain is probaby not due to kidney dysfunction. He has a + PSLR and Vineet Test for hamstring and hip tightness. + Provacation tests Stinchfield resisted hip flex, Scour and Anterior labral test, indicate possible intra-articular hip pathology . No significant indication of SIJ pathology. Pt R shoulder - RC dysfunction. Pt didn't show improvement with L hip stretches. Pt has good stability with gait per TUG score 9 secs. Pt is planning on CAT scan that will help to provide further hip assessment . Physical Therapy Plan Frequency and Duration Frequency of Treatment 2x/Week Plan of Care Start Date 02/22/22 Plan of Care End Date 04/07/22 Next Visit Focus/Plan Next Note Type Treatment Note Next Visit Plan Assess L hip and R hip AB/AD strength. Start HEP: L hip stretches for flex, ER, IR. Assess L hip joint mobility and start hip stabilization ex 's. Progress R RC rehabilitation with caution for Supraspinatus. Educated pt in best posturing for nighttime sleep and getting in /out of car.
--- NOTE | 2022-03-01 09:18 | PT.OTN ---
Current Diagnoses Pain in right shoulder (03/01/22) Pain in left hip (03/01/22) Muscle weakness (generalized) (03/01/22) Physical Therapy Treatment Note PT-OP-A Visit Information Start: 02/20/22 20:05 Freq: Status: Active Protocol: Document 03/01/22 08:15 LRN (Rec: 03/01/22 09:16 LRN [id number]) Out-Patient Physical Therapy Visit Information Visit Information Visit Type Treatment Note Visit Start Time 08:15 Visit Stop Time 08:54 Total Visit Minutes 39 Visit Number Evaluation Information Evaluation Date 02/22/22 Precautions Precautions Uncontrolled very Low HR (36) > Low HR (60), Multiple Sclerosis, chronic back pain, Neuropathy, Dizziness, SOB, Controlled HBP , hx of A.Fib & Kidney stones. PT-OP-B Current Condition Start: 02/20/22 20:05 Freq: Status: Active Protocol: Document 02/22/22 08:16 LRN (Rec: 02/22/22 18:59 LRN [id number]) Current Condition History of Current Condition Onset Date ~12/04/21 L hip, ~12/18/21 R shoulder. Current Complaints Pain with movement at L hip and R shoulder. L hip worse than R shoulder. History of Current Condition Mid November got out of chair, and heard a pop in L hip, and felt severe pain inferior to the L ASIS. A week later was reaching up to grab something and heard a pop in the posterior R shoulder. Pt indicated pain was posterior to the acromion process. Pt denies bruising. Pt reports with walking there is pain in the L anterior hip on stance phase while shifting onto RLE. He can hot die picker heavy things off the floor with his R shoulder, but has pain with moving the arm away from the body out to the side and fwd ~ 80 deg's. Pain is stabbing and sharp in nature. Pt requests focus of therapy on R hip to start. Prior Treatments and Tests X-rays: Unremarkable. Treatment Goals Patient/Caregiver Goals Pt goal is to be able to put socks on and walk without L hip pain. Improve sleep without pain of R shoulder. Improve ability to move the R shoulder without pain. Prior Functional Status Baseline Function- ADL's Independent Baseline Function- Mobility Independent Baseline Function- Gait Ambulated without assistive device without pain. Baseline Function- Work/School Works FT at [employer]. Baseline Function- Recreation/Hobbies No limitations with R UE movement and just went back to playing golf, 1x before injury. Baseline Function- Other Occasionally wakes during the night due to aching legs, no pain at L hip or R shoulder. Current Functional Impairments (Reported) Functional Limitations- ADL's Wakes 2 times per night from R shoulder pain when rolling on it. must help putting L socks on because can't bend over far enough to put socks on. Functional Limitations- Mobility/Gait L anterior hip pain with gait. 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 Extreme difficulty shifting gears with R UE in workplace van due to R shoulder pain and weakness. Personal Factors Other Personal Factors That May Effect is having health problems Therapy/Recovery . L leg weakness due to Multiple Sclerosis. Uncontrolled low HR (36>60) PT-OP-C Subjective Start: 02/20/22 20:05 Freq: Status: Active Protocol: Document 03/01/22 08:15 LRN (Rec: 03/01/22 09:16 LRN [id number]) OP-PT Subjective Patient Comments Patient Comments No change. 0/10 L hip pain to start recumbent bike ex, walking into therapy L hip pain is 2/10. No change R shoulder, at end of day beginning to really ache (8p) at end of day, then ices R shoulder and L hip. PT-OP-D Balance Start: 02/20/22 20:05 Freq: Status: Active Protocol: Document 02/22/22 08:16 LRN (Rec: 02/22/22 18:59 LRN [id number]) Balance Tests Single Limb Standing Single Limb- Right 2 secs Single Limb- Left 1-4 secs PT-OP-E Functional Tests Start: 02/20/22 20:05 Freq: Status: Active Protocol: Document 02/26/22 09:02 LRN (Rec: 02/26/22 12:41 LRN [id number]) Functional Tests Timed Up and Go (TUG) Score 9 secs Comments Webbed chair and slip on shoes . TUG Impairment Rating 0% Impaired (Score 10) PT-OP-G Mobility & Gait Start: 02/20/22 20:05 Freq: Status: Active Protocol: Document 02/22/22 08:16 LRN (Rec: 02/22/22 18:59 LRN [id number]) OP Mobility Evaluation Transfers Sit to Stand Independent with use of L UE's to help push at knee. Bed to Chair Transfers Independent with pain and use of UE's Car Transfers Inpependent with pain, but has much difficulty using a van ( getting in, really hurts; R shoulder hurts shifting car with automatic - lifting lever ; can't lift cup of water due to not able to lift with arm out to the side). OP Gait Assessment Comments Gait Comments Lacks hip shift L, Trunk shifted R with lean to R. PT-OP-H Neuro Start: 02/20/22 20:05 Freq: Status: Active Protocol: Document 02/22/22 08:16 LRN (Rec: 02/22/22 18:59 LRN [id number]) Sensation Evaluation Gross Sensation Gross Sensation WNL PT-OP-J Posture/Palpation/Skin Start: 02/20/22 20:05 Freq: Status: Active Protocol: Document 02/22/22 08:16 LRN (Rec: 02/22/22 18:59 LRN [id number]) Posture Evaluation Position Standing Head/C-Spine Posture Side Bent Right,Forward Head L-Spine Posture Flattened,Shifted Right Shoulder Posture (L) Elevated Scapula Posture (R) Depressed Weight Distribution Weight Shifted Left Comments Posture Comments Sits with RLE extended. Palpation Assessment Location L hip Palpation Location L hip medial to ASIS and at TFL Palpation Findings Tenderness R shoulder Palpation Location R Subscapular attachment at GHJ Palpation Findings Tenderness PT-OP-K Range of Motion Start: 02/20/22 20:05 Freq: Status: Active Protocol: Document 02/22/22 08:16 LRN (Rec: 02/22/22 18:59 LRN [id number]) Shoulder Goniometric Range of Motion Shoulder Right Active Testing Position Standing Flexion 57 Extension 30 Abduction 42 External Rotation at 0 degrees Abduction 50 Left Active Testing Position Standing Flexion 132 Extension 65 Abduction 150 External Rotation at 0 degrees Abduction 65 Hip Goniometric Range of Motion Hip Left Passive Hip ROM WFL No Testing Position Supine Extension 0 Internal Rotation 30 External Rotation 30 Right Passive Hip ROM WFL Yes Testing Position Supine Extension 10 Internal Rotation 30 External Rotation 50 PT-OP-L Special Tests Start: 02/20/22 20:05 Freq: Status: Active Protocol: Document 02/26/22 09:02 LRN (Rec: 02/26/22 12:41 LRN [id number]) Special Tests Lumbar Spine Special Tests Straight Leg Raise Test Results + PSLR - 60 deg's Comments Hamstring tight Hip Special Tests Piriformis Test Results - left Stinchfield Resisted Hip Flexion Test Results + left Scour Test Test Results + left Log Roll Test Test Results + left ISA Test Results + left Comments Painful in anterior hip with positioning Posterior Labral Test Test Results + left Anterior Labral Test Test Results + left PT-OP-M Strength Start: 02/20/22 20:05 Freq: Status: Active Protocol: Document 02/22/22 08:16 LRN (Rec: 02/22/22 18:59 LRN [id number]) Shoulder Strength Shoulder Manual Muscle Testing Right Flexion 2+ Poor+ Abduction (C5) 2 Poor External Rotation 4 Good Internal Rotation 3+ Fair+ Comments Strength limited due to pain. Left Comments Generally 5/5 Hip Strength Hip Manual Muscle Testing Left Flexion (L2) 3+ Fair+ External Rotation 3 Fair Internal Rotation 5 Normal Comments Deferred hip ext testing due to pain. PT-OP-Q Treatments Start: 02/20/22 20:05 Freq: Status: Active Protocol: Document 03/01/22 08:15 LRN (Rec: 03/01/22 09:16 LRN [id number]) Cardio Equipment Recumbent Bicycle Duration (Minutes) 9 Resistance 1 Seat Position 8 Other Doing shldr ex Therapeutic Exercises Supine Exercises Fig 4 stretch Supine Exercise Name Fig 4 stretch w/assist to support leg f/b 10x active stretch. Side left Comments ~30 deg's ER Lateral Hip stretch Supine Exercise Name Lateral Hip stretch Side left Reps/Minutes 2' Piriformis stretch Supine Exercise Name Assisted Piriformis stretch Side left Reps/Minutes 2' KTC Supine Exercise Name Assisted SKTC Side left Reps/Minutes 10 x 6 Comments Pt not able to pull w/R UE due to shoulder pain. Hip ER stretch Supine Exercise Name Active ER stretch - roll out Side left Reps/Minutes 10x Hip IR stretch Supine Exercise Name Active IR stretch - roll in Side left Reps/Minutes 10x Hamstring stretch Supine Exercise Name Hamstring/LE stretch Side left Reps/Minutes 10SH f/b 10 ankle pumps x 3 Sidelying Exercises L Hip AD Sidelying Exercise Name L hip AD w/RLE in front of LLE Side left Reps/Minutes 15x Sitting Exercises Active Shoulder ER/IR Sitting Exercise Name Sitting [facility] wipe Side right Equipment Used Lev 1 TB Reps/Minutes 4' Standing Exercises Lateral trunk shift stretch Standing Exercise Name Lateral Trunk shift stretch to R. Side right Reps/Minutes 2' Manual Therapy Treatment Soft Tissue Mobilization L TFL Body Location L TFL Mobilization Type Strumming,Sustained Pressure, Trigger Point Release Intensity/Depth Moderate Body Position Sidelying Comments 1/2 sidelying on R side Self-Care/Home Management Treatment Education Patient Education Home Exercise Program Activities Self-Care/Home Management Activities Issued & reviewed HEP: Fig 4 stretch. I/S pt in standing lateral trunk shift to R. PT-OP-T Assessment and Plan Start: 02/20/22 20:05 Freq: Status: Active Protocol: Document 03/01/22 08:15 LRN (Rec: 03/01/22 09:16 LRN [id number]) Physical Therapy Assessment Goals Four Impairment Decreased R shoulder ROM due to pain. Impairment R shoulder pain rated 6/10 at posterior to acromion process with movement. R shoulder AROM (sitting, in deg's): Flex 57, AB 42, ER 50 (0 deg's ER), IR reaching behind back to R PSIS. L shoulder AROM (sitting, in deg's): Flex 132, AB 150, ER 65 (0 deg's ER), IR reaching behind back to L4. Short Term Goal (STG) Improve ability to move the R shoulder with pt able to reach for feet with minimal R shoulder pain/discomfort. STG Duration 04/07/22 Group Home Goal (LTG) Improve ability to move the R shoulder with pt able to reach overhead with minimal R shoulder pain/discomfort. LTG Duration 05/23/22 Three Impairment R shoulder pain interrupting sleep at night. Impairment Wakes 2 times per night from R shoulder pain (rated 6/10), primarily when rolling on it. UE QuickDASH score 38.63 (20- 39% impaired) R shoulder strength: Flex 2+/ 5, AB 2/5, ER 4/5, IR 3+/5. L shldr is generally 5/5. Short Term Goal (STG) Improve UE QuickDASH score to 19 or less (1-19% impaired). STG Duration 04/07/22 [employer] Goal (LTG) Improve R shoulder strength with pt able to sleep longer with occasionally waking during the night, mostly without R shoulder pain. LTG Duration 05/23/22 Two Impairment L hip pain limiting functional movement and gait Impairment Intermittent L hip pain rated 5/10. Pt not able to don/doff socks independently. LEFS score 43/80 (40-59% impaired) Short Term Goal (STG) Pt will be able to walk without L anterior hip pain and improve function per LEFS score 49-62 (20-39% impaired). STG Duration 04/07/22 [employer] Goal (LTG) Pt will be able to don/doff his L sock/shoes independently without or minimal L anterior hip pain, or demonstrate improved function per LEFS score greater than 62. LTG Duration 05/23/22 One Impairment Lacks appropriate self care HEP Short Term Goal (STG) Pt will be educated in best posturing for nighttime sleep and getting in/out of car. 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 03/01/22: HEP: Fig 4 & lateral trunk shift stretch to R. LTG Duration 05/23/22 (03/01/22: Progressed) Progress Towards Goals Progress Comments Progressed HEP. Assessment Summary Assessment Pt very tender at L TFL and L greater trochanter; therefore pt might benefit from US to L TFL/bursa. Previous L Anterior labral test, indicates possible intra- articular hip pathology. No significant indication of SIJ pathology. R internal impingment syndrome indicating rotator cuff dysfunction, probably of the supraspinatus. L hip pain at start: walking in 2/10 and with start of bike ex 0/10; after treatment no change. Physical Therapy Plan Frequency and Duration Frequency of Treatment 2x/Week Plan of Care Start Date 02/22/22 Plan of Care End Date 04/07/22 Next Visit Focus/Plan Next Note Type Treatment Note Next Visit Plan Review HEP: L hip stretches ( flex, Fig4, sarah/outs). Assess L hip AB & R hip AB/AD strength. If needed update POC to add Ionto. Assess L hip joint mobility. Progress R RC rehabilitation with caution for Supraspinatus . Educated pt in best posturing for nighttime sleep and getting in/out of car.
--- NOTE | 2022-03-06 09:07 | PT.OTN ---
Current Diagnoses Pain in right shoulder (03/06/22) Pain in left hip (03/06/22) Muscle weakness (generalized) (03/06/22) Physical Therapy Treatment Note PT-OP-A Visit Information Start: 02/20/22 20:05 Freq: Status: Active Protocol: Document 03/06/22 08:17 LRN (Rec: 03/06/22 09:06 LRN [id number]) Out-Patient Physical Therapy Visit Information Visit Information Visit Type Treatment Note Visit Start Time 08:17 Visit Stop Time 08:58 Total Visit Minutes 41 Visit Number Evaluation Information Evaluation Date 02/22/22 Precautions Precautions Uncontrolled very Low HR (36) > Low HR (60), Multiple Sclerosis, chronic back pain, Neuropathy, Dizziness, SOB, Controlled HBP , hx of A.Fib & Kidney stones. PT-OP-B Current Condition Start: 02/20/22 20:05 Freq: Status: Active Protocol: Document 02/22/22 08:16 LRN (Rec: 02/22/22 18:59 LRN [id number]) Current Condition History of Current Condition Onset Date ~12/04/21 L hip, ~12/18/21 R shoulder. Current Complaints Pain with movement at L hip and R shoulder. L hip worse than R shoulder. History of Current Condition Mid November got out of chair, and heard a pop in L hip, and felt severe pain inferior to the L ASIS. A week later was reaching up to grab something and heard a pop in the posterior R shoulder. Pt indicated pain was posterior to the acromion process. Pt denies bruising. Pt reports with walking there is pain in the L anterior hip on stance phase while shifting onto RLE. He can worm picker heavy things off the floor with his R shoulder, but has pain with moving the arm away from the body out to the side and fwd ~ 80 deg's. Pain is stabbing and sharp in nature. Pt requests focus of therapy on R hip to start. Prior Treatments and Tests X-rays: Unremarkable. Treatment Goals Patient/Caregiver Goals Pt goal is to be able to put socks on and walk without L hip pain. Improve sleep without pain of R shoulder. Improve ability to move the R shoulder without pain. Prior Functional Status Baseline Function- ADL's Independent Baseline Function- Mobility Independent Baseline Function- Gait Ambulated without assistive device without pain. Baseline Function- Work/School Works FT at [employer]. Baseline Function- Recreation/Hobbies No limitations with R UE movement and just went back to playing golf, 1x before injury. Baseline Function- Other Occasionally wakes during the night due to aching legs, no pain at L hip or R shoulder. Current Functional Impairments (Reported) Functional Limitations- ADL's Wakes 2 times per night from R shoulder pain when rolling on it. must help putting L socks on because can't bend over far enough to put socks on. Functional Limitations- Mobility/Gait L anterior hip pain with gait. 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 Extreme difficulty shifting gears with R UE in workplace van due to R shoulder pain and weakness. Personal Factors Other Personal Factors That May Effect is having health problems Therapy/Recovery . L leg weakness due to Multiple Sclerosis. Uncontrolled low HR (36>60) PT-OP-C Subjective Start: 02/20/22 20:05 Freq: Status: Active Protocol: Document 03/06/22 08:17 LRN (Rec: 03/06/22 09:06 LRN [id number]) OP-PT Subjective Patient Comments Patient Comments No change. Very painful in anterior L hip when bending over to put shoes on or in standing bending over. PT-OP-D Balance Start: 02/20/22 20:05 Freq: Status: Active Protocol: Document 02/22/22 08:16 LRN (Rec: 02/22/22 18:59 LRN [id number]) Balance Tests Single Limb Standing Single Limb- Right 2 secs Single Limb- Left 1-4 secs PT-OP-E Functional Tests Start: 02/20/22 20:05 Freq: Status: Active Protocol: Document 02/26/22 09:02 LRN (Rec: 02/26/22 12:41 LRN [id number]) Functional Tests Timed Up and Go (TUG) Score 9 secs Comments Webbed chair and slip on shoes . TUG Impairment Rating 0% Impaired (Score 10) PT-OP-G Mobility & Gait Start: 02/20/22 20:05 Freq: Status: Active Protocol: Document 02/22/22 08:16 LRN (Rec: 02/22/22 18:59 LRN [id number]) OP Mobility Evaluation Transfers Sit to Stand Independent with use of L UE's to help push at knee. Bed to Chair Transfers Independent with pain and use of UE's Car Transfers Inpependent with pain, but has much difficulty using a van ( getting in, really hurts; R shoulder hurts shifting car with automatic - lifting lever ; can't lift cup of water due to not able to lift with arm out to the side). OP Gait Assessment Comments Gait Comments Lacks hip shift L, Trunk shifted R with lean to R. PT-OP-H Neuro Start: 02/20/22 20:05 Freq: Status: Active Protocol: Document 02/22/22 08:16 LRN (Rec: 02/22/22 18:59 LRN [id number]) Sensation Evaluation Gross Sensation Gross Sensation WNL PT-OP-J Posture/Palpation/Skin Start: 02/20/22 20:05 Freq: Status: Active Protocol: Document 02/22/22 08:16 LRN (Rec: 02/22/22 18:59 LRN [id number]) Posture Evaluation Position Standing Head/C-Spine Posture Side Bent Right,Forward Head L-Spine Posture Flattened,Shifted Right Shoulder Posture (L) Elevated Scapula Posture (R) Depressed Weight Distribution Weight Shifted Left Comments Posture Comments Sits with RLE extended. Palpation Assessment Location L hip Palpation Location L hip medial to ASIS and at TFL Palpation Findings Tenderness R shoulder Palpation Location R Subscapular attachment at GHJ Palpation Findings Tenderness PT-OP-K Range of Motion Start: 02/20/22 20:05 Freq: Status: Active Protocol: Document 02/22/22 08:16 LRN (Rec: 02/22/22 18:59 LRN [id number]) Shoulder Goniometric Range of Motion Shoulder Right Active Testing Position Standing Flexion 57 Extension 30 Abduction 42 External Rotation at 0 degrees Abduction 50 Left Active Testing Position Standing Flexion 132 Extension 65 Abduction 150 External Rotation at 0 degrees Abduction 65 Hip Goniometric Range of Motion Hip Left Passive Hip ROM WFL No Testing Position Supine Extension 0 Internal Rotation 30 External Rotation 30 Right Passive Hip ROM WFL Yes Testing Position Supine Extension 10 Internal Rotation 30 External Rotation 50 PT-OP-L Special Tests Start: 02/20/22 20:05 Freq: Status: Active Protocol: Document 02/26/22 09:02 LRN (Rec: 02/26/22 12:41 LRN [id number]) Special Tests Lumbar Spine Special Tests Straight Leg Raise Test Results + PSLR - 60 deg's Comments Hamstring tight Hip Special Tests Piriformis Test Results - left Stinchfield Resisted Hip Flexion Test Results + left Scour Test Test Results + left Log Roll Test Test Results + left ISA Test Results + left Comments Painful in anterior hip with positioning Posterior Labral Test Test Results + left Anterior Labral Test Test Results + left PT-OP-M Strength Start: 02/20/22 20:05 Freq: Status: Active Protocol: Document 02/22/22 08:16 LRN (Rec: 02/22/22 18:59 LRN [id number]) Shoulder Strength Shoulder Manual Muscle Testing Right Flexion 2+ Poor+ Abduction (C5) 2 Poor External Rotation 4 Good Internal Rotation 3+ Fair+ Comments Strength limited due to pain. Left Comments Generally 5/5 Hip Strength Hip Manual Muscle Testing Left Flexion (L2) 3+ Fair+ External Rotation 3 Fair Internal Rotation 5 Normal Comments Deferred hip ext testing due to pain. PT-OP-Q Treatments Start: 02/20/22 20:05 Freq: Status: Active Protocol: Document 03/06/22 08:17 LRN (Rec: 03/06/22 09:06 LRN [id number]) Therapeutic Exercises Supine Exercises Chest press Supine Exercise Name Chest press to ceiling, elbows in and support under elbow Side left Reps/Minutes 3' Lateral Hip stretch Supine Exercise Name Lateral Hip stretch Side left Reps/Minutes 2' Piriformis stretch Supine Exercise Name Assisted Piriformis stretch Side left Reps/Minutes 2' KTC Supine Exercise Name Assisted SKTC Side left Reps/Minutes 3' x 2 Comments Pt not able to pull w/R UE due to shoulder pain. Hamstring stretch Supine Exercise Name Hamstring/LE stretch Side left Reps/Minutes 3' Sitting Exercises L Reaching for toes Sitting Exercise Name TA/hip retraction f/b reaching for toes. Side left Active Shoulder ER/IR Sitting Exercise Name Sitting [facility] Side right Equipment Used w/o TB & w/Lev 2 TB Reps/Minutes 6' Hamstring/LE neural stretch Sitting Exercise Name Hamstring/LE neural stretch Side left Reps/Minutes 5' Comments Much cuing for posture of trunk and holding for full 60 Standing Exercises L Reaching for toes Standing Exercise Name TA/hip retraction f/b reaching for toes. Side left Reps/Minutes 3' Lateral trunk shift stretch Standing Exercise Name Lateral Trunk shift stretch to R (w/ & w/o wall) Side right Reps/Minutes 3' Manual Therapy Treatment Soft Tissue Mobilization L Ilipsoas Body Location L Iliopsoas Mobilization Type Sustained Pressure,Other Intensity/Depth Moderate Body Position Supine Comments Hooklie for stretch to posterior capsule PT-OP-T Assessment and Plan Start: 02/20/22 20:05 Freq: Status: Active Protocol: Document 03/06/22 08:17 LRN (Rec: 03/06/22 09:06 LRN [id number]) Physical Therapy Assessment Goals Four Impairment Decreased R shoulder ROM due to pain. Impairment R shoulder pain rated 6/10 at posterior to acromion process with movement. R shoulder AROM (sitting, in deg's): Flex 57, AB 42, ER 50 (0 deg's ER), IR reaching behind back to R PSIS. L shoulder AROM (sitting, in deg's): Flex 132, AB 150, ER 65 (0 deg's ER), IR reaching behind back to L4. Short Term Goal (STG) Improve ability to move the R shoulder with pt able to reach for feet with minimal R shoulder pain/discomfort. STG Duration 04/07/22 Water Service Supervisor Goal (LTG) Improve ability to move the R shoulder with pt able to reach overhead with minimal R shoulder pain/discomfort. LTG Duration 05/23/22 Three Impairment R shoulder pain interrupting sleep at night. Impairment Wakes 2 times per night from R shoulder pain (rated 6/10), primarily when rolling on it. UE QuickDASH score 38.63 (20- 39% impaired) R shoulder strength: Flex 2+/ 5, AB 2/5, ER 4/5, IR 3+/5. L shldr is generally 5/5. Short Term Goal (STG) Improve UE QuickDASH score to 19 or less (1-19% impaired). STG Duration 04/07/22 Nursing Home Goal (LTG) Improve R shoulder strength with pt able to sleep longer with occasionally waking during the night, mostly without R shoulder pain. LTG Duration 05/23/22 Two Impairment L hip pain limiting functional movement and gait Impairment Intermittent L hip pain rated 5/10. Pt not able to don/doff socks independently. LEFS score 43/80 (40-59% impaired) Short Term Goal (STG) Pt will be able to walk without L anterior hip pain and improve function per LEFS score 49-62 (20-39% impaired). STG Duration 04/07/22 Nursing Home Goal (LTG) Pt will be able to don/doff his L sock/shoes independently without or minimal L anterior hip pain, or demonstrate improved function per LEFS score greater than 62. LTG Duration 05/23/22 One Impairment Lacks appropriate self care HEP Short Term Goal (STG) Pt will be educated in best posturing for nighttime sleep and getting in/out of car. STG Duration 03/02/22 Water Service Supervisor Goal (LTG) Pt will be independent on a self care HEP to promote L hip mobility and strengthing in areas of deficit and L shoulder ROM/rotator cuff & scapular stabilizing exercises . 03/01/22: HEP: Fig 4 & lateral trunk shift stretch to R. LTG Duration 05/23/22 (03/01/22: Progressed) Progress Towards Goals Progress Comments Pt able to get closer to reaching his toes in sitting after manual therapy and L hip stretches. Assessment Summary Assessment Possible L anterior capsule dysfunction; therefore held FIG 4 stretch. Good response to L Ilipsoas stretch and improved L hip flexion after manual therapy and stretches. Pt has decreased posterior glide of L hip. Physical Therapy Plan Frequency and Duration Frequency of Treatment 2x/Week Plan of Care Start Date 02/22/22 Plan of Care End Date 04/07/22 Next Visit Focus/Plan Next Note Type Treatment Note Next Visit Plan Review HEP: sarah/outs, lateral trunk stretch and pull in of TA/hip into joint before hip flex mvmts). Assess L hip AB & R hip AB/AD strength. If needed update POC to add Ionto. Progress R RC rehabilitation with caution for Supraspinatus . Educate pt in best posturing for nighttime sleep and getting in/out of car.
--- NOTE | 2022-03-09 17:43 | PT.OTN ---
Current Diagnoses Pain in right shoulder (03/09/22) Pain in left hip (03/09/22) Muscle weakness (generalized) (03/09/22) Physical Therapy Treatment Note PT-OP-A Visit Information Start: 02/20/22 20:05 Freq: Status: Active Protocol: Document 03/09/22 08:15 LRN (Rec: 03/09/22 09:03 LRN [id number]) Out-Patient Physical Therapy Visit Information Visit Information Visit Type Treatment Note Visit Start Time 08:16 Visit Stop Time 09:00 Total Visit Minutes 44 Visit Number Evaluation Information Evaluation Date 02/22/22 Precautions Precautions Uncontrolled very Low HR (36) > Low HR (60), Multiple Sclerosis, chronic back pain, Neuropathy, Dizziness, SOB, Controlled HBP , hx of A.Fib & Kidney stones. PT-OP-B Current Condition Start: 02/20/22 20:05 Freq: Status: Active Protocol: Document 02/22/22 08:16 LRN (Rec: 02/22/22 18:59 LRN [id number]) Current Condition History of Current Condition Onset Date ~12/04/21 L hip, ~12/18/21 R shoulder. Current Complaints Pain with movement at L hip and R shoulder. L hip worse than R shoulder. History of Current Condition Mid November got out of chair, and heard a pop in L hip, and felt severe pain inferior to the L ASIS. A week later was reaching up to grab something and heard a pop in the posterior R shoulder. Pt indicated pain was posterior to the acromion process. Pt denies bruising. Pt reports with walking there is pain in the L anterior hip on stance phase while shifting onto RLE. 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 Pain is stabbing and sharp in nature. Pt requests focus of therapy on R hip to start. Prior Treatments and Tests X-rays: Unremarkable. Treatment Goals Patient/Caregiver Goals Pt goal is to be able to put socks on and walk without L hip pain. Improve sleep without pain of R shoulder. Improve ability to move the R shoulder without pain. Prior Functional Status Baseline Function- ADL's Independent Baseline Function- Mobility Independent Baseline Function- Gait Ambulated without assistive device without pain. Baseline Function- Work/School Works FT at [employer]. Baseline Function- Recreation/Hobbies No limitations with R UE movement and just went back to playing golf, 1x before injury. Baseline Function- Other Occasionally wakes during the night due to aching legs, no pain at L hip or R shoulder. Current Functional Impairments (Reported) Functional Limitations- ADL's Wakes 2 times per night from R shoulder pain when rolling on it. must help putting L socks on because can't bend over far enough to put socks on. Functional Limitations- Mobility/Gait L anterior hip pain with gait. 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 Extreme difficulty shifting gears with R UE in workplace van due to R shoulder pain and weakness. Personal Factors Other Personal Factors That May Effect is having health problems Therapy/Recovery . L leg weakness due to Multiple Sclerosis. Uncontrolled low HR (36>60) PT-OP-C Subjective Start: 02/20/22 20:05 Freq: Status: Active Protocol: Document 03/09/22 08:15 LRN (Rec: 03/09/22 09:03 LRN [id number]) OP-PT Subjective Patient Comments Patient Comments States maybe a little more motion L hip. States CAT scan approved. PT-OP-D Balance Start: 02/20/22 20:05 Freq: Status: Active Protocol: Document 02/22/22 08:16 LRN (Rec: 02/22/22 18:59 LRN [id number]) Balance Tests Single Limb Standing Single Limb- Right 2 secs Single Limb- Left 1-4 secs PT-OP-E Functional Tests Start: 02/20/22 20:05 Freq: Status: Active Protocol: Document 02/26/22 09:02 LRN (Rec: 02/26/22 12:41 LRN [id number]) Functional Tests Timed Up and Go (TUG) Score 9 secs Comments Webbed chair and slip on shoes . TUG Impairment Rating 0% Impaired (Score 10) PT-OP-G Mobility & Gait Start: 02/20/22 20:05 Freq: Status: Active Protocol: Document 02/22/22 08:16 LRN (Rec: 02/22/22 18:59 LRN [id number]) OP Mobility Evaluation Transfers Sit to Stand Independent with use of L UE's to help push at knee. Bed to Chair Transfers Independent with pain and use of UE's Car Transfers Inpependent with pain, but has much difficulty using a van ( getting in, really hurts; R shoulder hurts shifting car with automatic - lifting lever ; can't lift cup of water due to not able to lift with arm out to the side). OP Gait Assessment Comments Gait Comments Lacks hip shift L, Trunk shifted R with lean to R. PT-OP-H Neuro Start: 02/20/22 20:05 Freq: Status: Active Protocol: Document 02/22/22 08:16 LRN (Rec: 02/22/22 18:59 LRN [id number]) Sensation Evaluation Gross Sensation Gross Sensation WNL PT-OP-J Posture/Palpation/Skin Start: 02/20/22 20:05 Freq: Status: Active Protocol: Document 02/22/22 08:16 LRN (Rec: 02/22/22 18:59 LRN [id number]) Posture Evaluation Position Standing Head/C-Spine Posture Side Bent Right,Forward Head L-Spine Posture Flattened,Shifted Right Shoulder Posture (L) Elevated Scapula Posture (R) Depressed Weight Distribution Weight Shifted Left Comments Posture Comments Sits with RLE extended. Palpation Assessment Location L hip Palpation Location L hip medial to ASIS and at TFL Palpation Findings Tenderness R shoulder Palpation Location R Subscapular attachment at GHJ Palpation Findings Tenderness PT-OP-K Range of Motion Start: 02/20/22 20:05 Freq: Status: Active Protocol: Document 02/22/22 08:16 LRN (Rec: 02/22/22 18:59 LRN [id number]) Shoulder Goniometric Range of Motion Shoulder Right Active Testing Position Standing Flexion 57 Extension 30 Abduction 42 External Rotation at 0 degrees Abduction 50 Left Active Testing Position Standing Flexion 132 Extension 65 Abduction 150 External Rotation at 0 degrees Abduction 65 Hip Goniometric Range of Motion Hip Left Passive Hip ROM WFL No Testing Position Supine Extension 0 Internal Rotation 30 External Rotation 30 Right Passive Hip ROM WFL Yes Testing Position Supine Extension 10 Internal Rotation 30 External Rotation 50 PT-OP-L Special Tests Start: 02/20/22 20:05 Freq: Status: Active Protocol: Document 02/26/22 09:02 LRN (Rec: 02/26/22 12:41 LRN [id number]) Special Tests Lumbar Spine Special Tests Straight Leg Raise Test Results + PSLR - 60 deg's Comments Hamstring tight Hip Special Tests Piriformis Test Results - left Stinchfield Resisted Hip Flexion Test Results + left Scour Test Test Results + left Log Roll Test Test Results + left ISA Test Results + left Comments Painful in anterior hip with positioning Posterior Labral Test Test Results + left Anterior Labral Test Test Results + left PT-OP-M Strength Start: 02/20/22 20:05 Freq: Status: Active Protocol: Document 03/09/22 08:15 LRN (Rec: 03/09/22 09:03 LRN [id number]) Hip Strength Hip Manual Muscle Testing Right Abduction 5 Normal Adduction 5 Normal Left Flexion (L2) 3+ Fair+ Abduction 3- Fair- Adduction 1 Trace External Rotation 3 Fair Internal Rotation 5 Normal PT-OP-Q Treatments Start: 02/20/22 20:05 Freq: Status: Active Protocol: Document 03/09/22 08:15 LRN (Rec: 03/09/22 09:03 LRN [id number]) Cardio Equipment Recumbent Bicycle Duration (Minutes) 10 Resistance 3 Seat Position 7 Other Doing shldr ex Therapeutic Exercises Supine Exercises Lateral Hip stretch Supine Exercise Name Lateral Hip stretch Side left Reps/Minutes 2' Piriformis stretch Supine Exercise Name Assisted Piriformis stretch Side left Reps/Minutes 2' KTC Supine Exercise Name Assisted SKTC Side left Reps/Minutes 2' x 2 Comments Pt not able to pull w/R UE due to shoulder pain. Hamstring stretch Supine Exercise Name Hamstring/LE stretch Side left Reps/Minutes 3' Sidelying Exercises R hip AB/AD Sidelying Exercise Name R hip AB/AD Side right Comments MMT taken Hip AB Sidelying Exercise Name Hip AB strengthening Side bilateral Reps/Minutes 15x L Hip AD Sidelying Exercise Name L hip AD w/RLE in front of LLE Side left Reps/Minutes 15x Sitting Exercises Active Shoulder ER/IR Sitting [facility] Equipment Used w/Lev 2 TB Reps/Minutes 3' Manual Therapy Treatment Soft Tissue Mobilization L posterior hip Body Location L posterior capsule hip stretch Mobilization Type Sustained Pressure Body Position Supine Comments OPen pack position posterior glide of femur for posterior capsule stretch L hip adductors Body Location L hip adductors Mobilization Type Myofascial Release,Other Intensity/Depth Moderate Body Position Supine L Ilipsoas Body Location L Iliopsoas Mobilization Type Sustained Pressure,Other Intensity/Depth Moderate Body Position Supine Comments [place]lie for stretch to posterior capsule Self-Care/Home Management Treatment Education Patient Education Home Exercise Program Activities Self-Care/Home Management Activities Issued & reviewed HEP: LE roll in/out with I/S to not worry about using band and ball. PT-OP-T Assessment and Plan Start: 02/20/22 20:05 Freq: Status: Active Protocol: Document 03/09/22 08:15 LRN (Rec: 03/09/22 09:03 LRN [id number]) Physical Therapy Assessment Goals Four Impairment Decreased R shoulder ROM due to pain. Impairment R shoulder pain rated 6/10 at posterior to acromion process with movement. R shoulder AROM (sitting, in deg's): Flex 57, AB 42, ER 50 (0 deg's ER), IR reaching behind back to R PSIS. L shoulder AROM (sitting, in deg's): Flex 132, AB 150, ER 65 (0 deg's ER), IR reaching behind back to L4. Short Term Goal (STG) Improve ability to move the R shoulder with pt able to reach for feet with minimal R shoulder pain/discomfort. STG Duration 04/07/22 Penitentiary Goal (LTG) Improve ability to move the R shoulder with pt able to reach overhead with minimal R shoulder pain/discomfort. LTG Duration 05/23/22 Three Impairment R shoulder pain interrupting sleep at night. Impairment Wakes 2 times per night from R shoulder pain (rated 6/10), primarily when rolling on it. UE QuickDASH score 38.63 (20- 39% impaired) R shoulder strength: Flex 2+/ 5, AB 2/5, ER 4/5, IR 3+/5. L shldr is generally 5/5. Short Term Goal (STG) Improve UE QuickDASH score to 19 or less (1-19% impaired). STG Duration 04/07/22 Penitentiary Goal (LTG) Improve R shoulder strength with pt able to sleep longer with occasionally waking during the night, mostly without R shoulder pain. LTG Duration 05/23/22 Two Impairment L hip pain limiting functional movement and gait Impairment Intermittent L hip pain rated 5/10. Pt not able to don/doff socks independently. LEFS score 43/80 (40-59% impaired) Short Term Goal (STG) Pt will be able to walk without L anterior hip pain and improve function per LEFS score 49-62 (20-39% impaired). STG Duration 04/07/22 Verifying Specialist Goal (LTG) Pt will be able to don/doff his L sock/shoes independently without or minimal L anterior hip pain, or demonstrate improved function per LEFS score greater than 62. LTG Duration 05/23/22 One Impairment Lacks appropriate self care HEP Short Term Goal (STG) Pt will be educated in best posturing for nighttime sleep and getting in/out of car. STG Duration 03/02/22 Penitentiary Goal (LTG) Pt will be independent on a self care HEP to promote L hip mobility and strengthing in areas of deficit and L shoulder ROM/rotator cuff & scapular stabilizing exercises . 03/01/22: HEP: Fig 4 & lateral trunk shift stretch to R. 03/09/22: HEP: LE roll in/ out LTG Duration 05/23/22 (03/09/22: Progressed) Assessment Summary Assessment Pt showed NO improvement in ability to reach his L shoe in sitting due to anterior hip pain after treatment, possibly due to excessive stretch to L hip IR's. He has normal R hip AB/AD strength but poor L hip AB/AD strength. Pt is planning on having CAT scan, but is not sure if it is at R shoulder or L hip. On his HEP he demonstrates improved mobility of hips with LE roll in/outs. He is not consistent with drawing L hip and TA in with active L hip flexion; therefore further training needed. Physical Therapy Plan Frequency and Duration Frequency of Treatment 2x/Week Plan of Care Start Date 02/22/22 Plan of Care End Date 04/07/22 Next Visit Focus/Plan Next Note Type Treatment Note Next Visit Plan Review HEP: lateral trunk shift stretch. Cont training for: pull in of TA/hip into joint before hip flex mvmts. Try MWM to L/S for sitting trunk FB. Educate pt in best posturing for nighttime sleep and getting in/out of car. If needed update POC to add [place]. Progress R RC rehabilitation with caution for Supraspinatus .
--- NOTE | 2022-03-13 17:54 | PT.OTN ---
Current Diagnoses Pain in right shoulder (03/13/22) Pain in left hip (03/13/22) Muscle weakness (generalized) (03/13/22) Physical Therapy Treatment Note PT-OP-A Visit Information Start: 02/20/22 20:05 Freq: Status: Active Protocol: Document 03/13/22 08:16 LRN (Rec: 03/13/22 09:03 LRN [id number]) Out-Patient Physical Therapy Visit Information Visit Information Visit Type Progress Note Visit Note MRI taken 03/09/22 Visit Start Time 08:16 Visit Stop Time 08:55 Total Visit Minutes 49 Visit Number Evaluation Information Evaluation Date 02/22/22 Precautions Precautions Uncontrolled very Low HR (36) > Low HR (60), Multiple Sclerosis, chronic back pain, Neuropathy, Dizziness, SOB, Controlled HBP , hx of A.Fib & Kidney stones. PT-OP-B Current Condition Start: 02/20/22 20:05 Freq: Status: Active Protocol: Document 03/13/22 08:16 LRN (Rec: 03/13/22 17:36 LRN [id number]) Current Condition History of Current Condition Onset Date ~12/04/21 L hip, ~12/18/21 R shoulder. Current Complaints Pain with movement at L hip and R shoulder. L hip worse than R shoulder. History of Current Condition Mid November got out of chair, and heard a pop in L hip, and felt severe pain inferior to the L ASIS. A week later was reaching up to grab something and heard a pop in the posterior R shoulder. Pt indicated pain was posterior to the acromion process. Pt denies bruising. Pt reports with walking there is pain in the L anterior hip on stance phase while shifting onto RLE. He can bean picker heavy things off the floor with his R shoulder, but has pain with moving the arm away from the body out to the side and fwd ~ 80 deg's. Pain is stabbing and sharp in nature. Pt requests focus of therapy on R hip to start. Prior Treatments and Tests X-rays: Unremarkable. 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 Attenuated labrum with signal abnormality . PT-OP-C Subjective Start: 02/20/22 20:05 Freq: Status: Active Protocol: Document 03/13/22 08:16 LRN (Rec: 03/13/22 09:03 LRN [id number]) OP-PT Subjective Patient Comments Patient Comments States he had his MRI scan of the L hip 03/09/22. PT-OP-D Balance Start: 02/20/22 20:05 Freq: Status: Active Protocol: Document 02/22/22 08:16 LRN (Rec: 02/22/22 18:59 LRN [id number]) Balance Tests Single Limb Standing Single Limb- Right 2 secs Single Limb- Left 1-4 secs PT-OP-E Functional Tests Start: 02/20/22 20:05 Freq: Status: Active Protocol: Document 02/26/22 09:02 LRN (Rec: 02/26/22 12:41 LRN [id number]) Functional Tests Timed Up and Go (TUG) Score 9 secs Comments Webbed chair and slip on shoes . TUG Impairment Rating 0% Impaired (Score 10) PT-OP-G Mobility & Gait Start: 02/20/22 20:05 Freq: Status: Active Protocol: Document 02/22/22 08:16 LRN (Rec: 02/22/22 18:59 LRN [id number]) OP Mobility Evaluation Transfers Sit to Stand Independent with use of L UE's to help push at knee. Bed to Chair Transfers Independent with pain and use of UE's Car Transfers Inpependent with pain, but has much difficulty using a van ( getting in, really hurts; R shoulder hurts shifting car with automatic - lifting lever ; can't lift cup of water due to not able to lift with arm out to the side). OP Gait Assessment Comments Gait Comments Lacks hip shift L, Trunk shifted R with lean to R. PT-OP-H Neuro Start: 02/20/22 20:05 Freq: Status: Active Protocol: Document 02/22/22 08:16 LRN (Rec: 02/22/22 18:59 LRN [id number]) Sensation Evaluation Gross Sensation Gross Sensation WNL PT-OP-J Posture/Palpation/Skin Start: 02/20/22 20:05 Freq: Status: Active Protocol: Document 02/22/22 08:16 LRN (Rec: 02/22/22 18:59 LRN [id number]) Posture Evaluation Position Standing Head/C-Spine Posture Side Bent Right,Forward Head L-Spine Posture Flattened,Shifted Right Shoulder Posture (L) Elevated Scapula Posture (R) Depressed Weight Distribution Weight Shifted Left Comments Posture Comments Sits with RLE extended. Palpation Assessment Location L hip Palpation Location L hip medial to ASIS and at TFL Palpation Findings Tenderness R shoulder Palpation Location R Subscapular attachment at GHJ Palpation Findings Tenderness PT-OP-K Range of Motion Start: 02/20/22 20:05 Freq: Status: Active Protocol: Document 02/22/22 08:16 LRN (Rec: 02/22/22 18:59 LRN [id number]) Shoulder Goniometric Range of Motion Shoulder Right Active Testing Position Standing Flexion 57 Extension 30 Abduction 42 External Rotation at 0 degrees Abduction 50 Left Active Testing Position Standing Flexion 132 Extension 65 Abduction 150 External Rotation at 0 degrees Abduction 65 Hip Goniometric Range of Motion Hip Left Passive Hip ROM WFL No Testing Position Supine Extension 0 Internal Rotation 30 External Rotation 30 Right Passive Hip ROM WFL Yes Testing Position Supine Extension 10 Internal Rotation 30 External Rotation 50 PT-OP-L Special Tests Start: 02/20/22 20:05 Freq: Status: Active Protocol: Document 02/26/22 09:02 LRN (Rec: 02/26/22 12:41 LRN [id number]) Special Tests Lumbar Spine Special Tests Straight Leg Raise Test Results + PSLR - 60 deg's Comments Hamstring tight Hip Special Tests Piriformis Test Results - left Stinchfield Resisted Hip Flexion Test Results + left Scour Test Test Results + left Log Roll Test Test Results + left ISA Test Results + left Comments Painful in anterior hip with positioning Posterior Labral Test Test Results + left Anterior Labral Test Test Results + left PT-OP-M Strength Start: 02/20/22 20:05 Freq: Status: Active Protocol: Document 03/09/22 08:15 LRN (Rec: 03/09/22 09:03 LRN [id number]) Hip Strength Hip Manual Muscle Testing Right Abduction 5 Normal Adduction 5 Normal Left Flexion (L2) 3+ Fair+ Abduction 3- Fair- Adduction 1 Trace External Rotation 3 Fair Internal Rotation 5 Normal PT-OP-Q Treatments Start: 02/20/22 20:05 Freq: Status: Active Protocol: Document 03/13/22 08:16 LRN (Rec: 03/13/22 09:03 LRN [id number]) Cardio Equipment Recumbent Stepper (Sci-Fit) Duration (Minutes) 8 Resistance 1 Seat Position 13 Therapeutic Exercises Supine Exercises BKFO Supine Exercise Name Hip AD strengthening Side left Reps/Minutes 10x 3 Comments Phys assist to keep knee from pain with AB/ER. Hip AD stretch Supine Exercise Name Supported BKFO position for stretch Side left Reps/Minutes 60 x 1 LE roll in/out Supine Exercise Name LE roll in/out Side bilateral Reps/Minutes 10x Lateral Hip stretch Supine Exercise Name Lateral Hip stretch Side left Reps/Minutes 2' Piriformis stretch Supine Exercise Name Assisted Piriformis stretch Side left Reps/Minutes 2' KTC Supine Exercise Name Assisted SKTC Side left Reps/Minutes 2' x 2 Comments Pt not able to pull w/R UE due to shoulder pain. Hamstring stretch Supine Exercise Name Hamstring/LE stretch Side left Reps/Minutes 3' Sidelying Exercises Hip AB Sidelying Exercise Name Hip AB strengthening Side bilateral Reps/Minutes 15x L Hip AD Sidelying Exercise Name L hip AD w/RLE in front of LLE Side left Reps/Minutes 15x 2 Sitting Exercises L Reaching for toes Sitting Exercise Name TA/hip retraction f/b reaching for toes. Side left Comments Resistance given for hip AD & for hip AB w/no change in motion. Self-Care/Home Management Treatment Education Patient Education Home Exercise Program,Posture Other Education Pt educated in best posturing for nighttime sleep for sidelie, with handout issued. Activities Self-Care/Home Management Activities Pt issued & reviewed HEP: Hip AD and Clamshell strengthening exercise. PT-OP-R Modalities Start: 02/20/22 20:05 Freq: Status: Active Protocol: Document 03/13/22 08:16 LRN (Rec: 03/13/22 17:50 LRN [id number]) Hot Pack/Cold Pack Treatment Cold Pack Location L ASIS/Greater Trochanter Patient Position Sitting Treatment Duration (minutes) 10 Patient Tolerance Good PT-OP-T Assessment and Plan Start: 02/20/22 20:05 Freq: Status: Active Protocol: Document 03/13/22 08:16 LRN (Rec: 03/13/22 09:03 LRN [id number]) Physical Therapy Assessment Rehab Potential Rehabilitation Potential Excellent Evaluation Complexity Number of Personal Factors/Comorbidities 1-2 Number of Body Systems Impaired 4 or More Clinical Presentation at Evaluation Evolving Impairments Impairments Activity Tolerance,Functional Activities,Functional Mobility ,Gait,Pain,Posture,ROM,Soft Tissue Mobility,Strength, Transfers Other Impairments Functional impairments of getting in/out of car, walking , dressing (putting L sock on) , lifting cup, shifting gears in workplace van (automatic van). Goals Four Impairment Decreased R shoulder ROM due to pain. Impairment R shoulder pain rated 6/10 at posterior to acromion process with movement. R shoulder AROM (sitting, in deg's): Flex 57, AB 42, ER 50 (0 deg's ER), IR reaching behind back to R PSIS. L shoulder AROM (sitting, in deg's): Flex 132, AB 150, ER 65 (0 deg's ER), IR reaching behind back to L4. Short Term Goal (STG) Improve ability to move the R shoulder with pt able to reach for feet with minimal R shoulder pain/discomfort. STG Duration 04/07/22 Residential Goal (LTG) Improve ability to move the R shoulder with pt able to reach overhead with minimal R shoulder pain/discomfort. LTG Duration 05/23/22 Three Impairment R shoulder pain interrupting sleep at night. Impairment Wakes 2 times per night from R shoulder pain (rated 6/10), primarily when rolling on it. UE QuickDASH score 38.63 (20- 39% impaired) R shoulder strength: Flex 2+/ 5, AB 2/5, ER 4/5, IR 3+/5. L shldr is generally 5/5. Short Term Goal (STG) Improve UE QuickDASH score to 19 or less (1-19% impaired). STG Duration 04/07/22 Residential Goal (LTG) Improve R shoulder strength with pt able to sleep longer with occasionally waking during the night, mostly without R shoulder pain. LTG Duration 05/23/22 Two Impairment L hip pain limiting functional movement and gait Impairment Intermittent L hip pain rated 5/10. Pt not able to don/doff socks independently. LEFS score 43/80 (40-59% impaired) Short Term Goal (STG) Pt will be able to walk without L anterior hip pain and improve function per LEFS score 49-62 (20-39% impaired). STG Duration 04/07/22 Fibre Technologist Goal (LTG) Pt will be able to don/doff his L sock/shoes independently without or minimal L anterior hip pain, or demonstrate improved function per LEFS score greater than 62. LTG Duration 05/23/22 One Impairment Lacks appropriate self care HEP Short Term Goal (STG) Pt will be educated in best posturing for nighttime sleep and getting in/out of car. 03/13/22: Pt educated in best posturing for nighttime sleep for sidelie. STG Duration 03/02/22 partially met . Residential Goal (LTG) Pt will be independent on a self care HEP to promote L hip mobility and strengthing in areas of deficit and L shoulder ROM/rotator cuff & scapular stabilizing exercises . 03/01/22: HEP: Fig 4 & lateral trunk shift stretch to R. 03/09/22: HEP: LE roll in/ out. 03/13/22: HEP: Clamshell & Hip AD strengthening LTG Duration 05/23/22 (03/13/22: Progressed) Assessment Summary Assessment Pt progress has been slow due to continued popping combined with pain at the L hip with flexion motion. Pt is tender at L ASIS and at the L TFL muscle (superior to L greater trochanter). Recent MRI indicates degenerative changes at the L hip, subcondral cystic changes of acetabulum and partial tear of ADD Minimus; therefore hip pain may be from cystic changes on acetabulum and instability at L hip from partial tear of ADD Minimius. Pt may benefit from Iontophoresis to reduce L ASIS pain if referring physician feels it is medically appropriate. Physical Therapy Plan Frequency and Duration Frequency of Treatment 2x/Week Plan of Care Start Date 03/13/22 Plan of Care End Date 04/21/22 Therapeutic Interventions Therapeutic Interventions Gait Training,Home Exercise Program,Joint Mobilizations, Manual Therapy,Neuromuscular Re-education,Patient/Caregiver Education,Self-Care/Home Management,Soft Tissue Mobilization,Taping, Therapeutic Activities, Therapeutic Exercises Modalities Cold Pack/Ice Massage,Hot Packs,Iontophoresis,Ultrasound Other Therapeutic Interventions Iontophoresis with 4mg/mL Dexamethasone with Sodium Phospate if medically appropriate. Next Visit Focus/Plan Next Note Type Treatment Note Next Visit Plan Review HEP: lateral trunk shift stretch. Cont training for: pull in of TA/hip into joint before hip flex mvmts. Educate pt in best posturing for getting in/out of car. POC: L hip Rehab: degenerative changes of the L hip, subcondral cystic changes of acetabulum and partial tear of L ADD Minimus. Progress R RC rehabilitation with caution for Supraspinatus .
--- NOTE | 2022-03-27 12:11 | PT-OP ANOTE ---
Pt has called and cancelled past 3 appts, reports to shingler is sick.
--- NOTE | 2022-04-26 16:25 | PT.OTN ---
Current Diagnoses Pain in right shoulder (04/26/22) Pain in left hip (04/26/22) Muscle weakness (generalized) (04/26/22) Physical Therapy Treatment Note PT-OP-A Visit Information Start: 02/20/22 20:05 Freq: Status: Active Protocol: Document 04/26/22 09:02 LRN (Rec: 04/26/22 09:46 LRN [id number]) Out-Patient Physical Therapy Visit Information Visit Information Visit Type Treatment Note Visit Note PT only Visit Start Time 09:02 Visit Stop Time 09:45 Total Visit Minutes 43 Visit Number 7 total Evaluation Information Evaluation Date 02/22/22 Precautions Precautions Uncontrolled very Low HR (36) > Low HR (60), Multiple Sclerosis, chronic back pain, Neuropathy, Dizziness, SOB, Controlled HBP , hx of A.Fib & Kidney stones. PT-OP-B Current Condition Start: 02/20/22 20:05 Freq: Status: Active Protocol: Document 03/13/22 08:16 LRN (Rec: 03/13/22 17:36 LRN [id number]) Current Condition History of Current Condition Onset Date ~12/04/21 L hip, ~12/18/21 R shoulder. Current Complaints Pain with movement at L hip and R shoulder. L hip worse than R shoulder. History of Current Condition Mid November got out of chair, and heard a pop in L hip, and felt severe pain inferior to the L ASIS. A week later was reaching up to grab something and heard a pop in the posterior R shoulder. Pt indicated pain was posterior to the acromion process. Pt denies bruising. Pt reports with walking there is pain in the L anterior hip on stance phase while shifting onto RLE. He can greens picker heavy things off the floor with his R shoulder, but has pain with moving the arm away from the body out to the side and fwd ~ 80 deg's. Pain is stabbing and sharp in nature. Pt requests focus of therapy on R hip to start. Prior Treatments and Tests X-rays: Unremarkable. 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 Attenuated labrum with signal abnormality . PT-OP-C Subjective Start: 02/20/22 20:05 Freq: Status: Active Protocol: Document 04/26/22 09:02 LRN (Rec: 04/26/22 09:46 LRN [id number]) OP-PT Subjective Patient Comments Patient Comments States has been sick and cx of treatments due to inclement weather since last visit. States had a little change. Pain is not as bad. Putting socks on is very painful in the L ASIS. R shoulder is better, was told the shoulder is expected to get better on it's own. When moving/ walkiing around a lot sometimes feels L hip pain. Patient Questionnaires Lower Extremity Functional Scale LEFS Score 40 LEFS Impairment 40 to 59% Impaired (Score 32- 47) Quick Dash- Upper Extremity Quick Dash UE Score 27.27 Quick Dash UE Impairment 20 to 39% Impaired (Score 20- 39) OP-PT Pain Assessment Pain Assessment Grid Paper Pain Assessment Grid Completed Yes Location L hip Pain Location Details TFL, IT band Intensity 5 Scale Used Numeric (0 - 10) Frequency Intermittent R shoulder Pain Location Details Lateral R shoulder behind acromion process Intensity 5 Scale Used Numeric (0 - 10) Frequency Intermittent PT-OP-D Balance Start: 02/20/22 20:05 Freq: Status: Active Protocol: Document 02/22/22 08:16 LRN (Rec: 02/22/22 18:59 LRN [id number]) Balance Tests Single Limb Standing Single Limb- Right 2 secs Single Limb- Left 1-4 secs PT-OP-E Functional Tests Start: 02/20/22 20:05 Freq: Status: Active Protocol: Document 04/26/22 09:02 LRN (Rec: 04/26/22 09:46 LRN [id number]) Functional Tests Apley's Scratch Test Action 1- Left Slightly behind shoulder Action 1- Right lateral L brachium Action 2- Left overhead T2 Action 2- Right C2 Action 3- Left behind back L2 Action 3- Right Behind back L5 PT-OP-G Mobility & Gait Start: 02/20/22 20:05 Freq: Status: Active Protocol: Document 02/22/22 08:16 LRN (Rec: 02/22/22 18:59 LRN [id number]) OP Mobility Evaluation Transfers Sit to Stand Independent with use of L UE's to help push at knee. Bed to Chair Transfers Independent with pain and use of UE's Car Transfers Inpependent with pain, but has much difficulty using a van ( getting in, really hurts; R shoulder hurts shifting car with automatic - lifting lever ; can't lift cup of water due to not able to lift with arm out to the side). OP Gait Assessment Comments Gait Comments Lacks hip shift L, Trunk shifted R with lean to R. PT-OP-H Neuro Start: 02/20/22 20:05 Freq: Status: Active Protocol: Document 02/22/22 08:16 LRN (Rec: 02/22/22 18:59 LRN [id number]) Sensation Evaluation Gross Sensation Gross Sensation WNL PT-OP-J Posture/Palpation/Skin Start: 02/20/22 20:05 Freq: Status: Active Protocol: Document 02/22/22 08:16 LRN (Rec: 02/22/22 18:59 LRN [id number]) Posture Evaluation Position Standing Head/C-Spine Posture Side Bent Right,Forward Head L-Spine Posture Flattened,Shifted Right Shoulder Posture (L) Elevated Scapula Posture (R) Depressed Weight Distribution Weight Shifted Left Comments Posture Comments Sits with RLE extended. Palpation Assessment Location L hip Palpation Location L hip medial to ASIS and at TFL Palpation Findings Tenderness R shoulder Palpation Location R Subscapular attachment at GHJ Palpation Findings Tenderness PT-OP-K Range of Motion Start: 02/20/22 20:05 Freq: Status: Active Protocol: Document 04/26/22 09:02 LRN (Rec: 04/26/22 09:46 LRN [id number]) Shoulder Goniometric Range of Motion Shoulder Right Active Testing Position Standing Flexion 117 Extension 62 Abduction 113 External Rotation at 0 degrees Abduction 50 Left Active Testing Position Standing Flexion 143 Extension 50 Abduction 132 External Rotation at 0 degrees Abduction 65 Hip Goniometric Range of Motion Hip Left Passive Hip ROM WFL No Testing Position Supine Internal Rotation 20 External Rotation 50 Right Passive Hip ROM WFL Yes Testing Position Supine Internal Rotation 25 External Rotation 50 PT-OP-L Special Tests Start: 02/20/22 20:05 Freq: Status: Active Protocol: Document 02/26/22 09:02 LRN (Rec: 02/26/22 12:41 LRN [id number]) Special Tests Lumbar Spine Special Tests Straight Leg Raise Test Results + PSLR - 60 deg's Comments Hamstring tight Hip Special Tests Piriformis Test Results - left Stinchfield Resisted Hip Flexion Test Results + left Scour Test Test Results + left Log Roll Test Test Results + left ISA Test Results + left Comments Painful in anterior hip with positioning Posterior Labral Test Test Results + left Anterior Labral Test Test Results + left PT-OP-M Strength Start: 02/20/22 20:05 Freq: Status: Active Protocol: Document 04/26/22 09:02 LRN (Rec: 04/26/22 09:46 LRN [id number]) Hip Strength Hip Manual Muscle Testing Left Flexion (L2) 4- Good- Abduction 3+ Fair+ Adduction 4- Good- External Rotation 3 Fair Internal Rotation 5 Normal PT-OP-Q Treatments Start: 02/20/22 20:05 Freq: Status: Active Protocol: Document 04/26/22 09:02 LRN (Rec: 04/26/22 09:46 LRN [id number]) Cardio Equipment Recumbent Stepper (Sci-Fit) Duration (Minutes) 5 Resistance 1 Seat Position 13 Therapeutic Exercises Supine Exercises Hip Flex Supine Exercise Name Hip Flex Side bilateral Comments MMT taken Hip AD stretch Supine Exercise Name Supported BKFO position for stretch Side left Reps/Minutes 60 x 2 Lateral Hip stretch Supine Exercise Name Lateral Hip stretch Side left Reps/Minutes 60 x 2 Comments Extra time to detemine max tolerated stretch Piriformis stretch Supine Exercise Name Ankle crossed over opp knee. Side left Reps/Minutes 60 x 2 Comments Extra time to stay within max tolerated stretch Hip ER stretch Supine Exercise Name ER stretch Side bilateral Comments PROM taken Hip IR stretch Supine Exercise Name ER stretch Side bilateral Comments PROM taken Sidelying Exercises Hip AB Sidelying Exercise Name Hip AB review Side bilateral Comments physical cuing to keep neutral position, MMT Taken L Hip AD Sidelying Exercise Name Hip AD review Side bilateral Comments Review of positioning for ex; MMT taken Sitting Exercises Hip IR Sitting Exercise Name AROM & ARROM Side bilateral Comments MMT taken Hip ER Sitting Exercise Name AROM & ARROM Side bilateral Comments MMT taken Standing Exercises Active shoulder AB Standing Exercise Name Active shoulder AB Side bilateral Comments ROM taken Functional shldr AROM Standing Exercise Name Functional shoulder AROM (see Apley Scratch Test) Side bilateral Comments ROM taken Active shoulder Flex/Ext Standing Exercise Name Active shoulder Flex/Ext Side bilateral Comments ROM taken Shoulder ER Standing Exercise Name Shoulder ER strengthening Equipment Used Lev 1 TB, Lev 2 TB Reps/Minutes 15x 2, 15x 1, respectively Shoulder IR Standing Exercise Name Shoulder IR strengthening Equipment Used Lev 1 TB Reps/Minutes 15x 2, 15x 1, respectively Self-Care/Home Management Treatment Education Patient Education Home Exercise Program,Posture Other Education Discussed results of progress towards goals, and new plan of care (POC). Pt agreeable to goals and POC. Activities Self-Care/Home Management Activities I/S pt to do RC: shldr IR/ER strengthening with Lev 2 TB. Issued Lev 2 TB and white strap for doorway anchoring. PT-OP-R Modalities Start: 02/20/22 20:05 Freq: Status: Active Protocol: Document 03/13/22 08:16 LRN (Rec: 03/13/22 17:50 LRN [id number]) Hot Pack/Cold Pack Treatment Cold Pack Location L ASIS/Greater Trochanter Patient Position Sitting Treatment Duration (minutes) 10 Patient Tolerance Good PT-OP-T Assessment and Plan Start: 02/20/22 20:05 Freq: Status: Active Protocol: Document 04/26/22 09:02 LRN (Rec: 04/26/22 09:46 LRN [id number]) Physical Therapy Assessment Rehab Potential Rehabilitation Potential Good Evaluation Complexity Number of Personal Factors/Comorbidities 1-2 Number of Body Systems Impaired 4 or More Clinical Presentation at Evaluation Evolving Impairments Impairments Activity Tolerance,Functional Activities,Functional Mobility ,Gait,Pain,Posture,ROM,Soft Tissue Mobility,Strength Other Impairments Functional impairments of getting in/out of car, walking , dressing (putting L sock on) , lifting cup, shifting gears in workplace van (automatic van). Goals Four Impairment Decreased R shoulder ROM due to pain. Impairment R shoulder pain rated 6/10 at posterior to acromion process with movement. R shoulder AROM (sitting, in deg's): Flex 57, AB 42, ER 50 (0 deg's ER), IR reaching behind back to R PSIS. L shoulder AROM (sitting, in deg's): Flex 132, AB 150, ER 65 (0 deg's ER), IR reaching behind back to L4. Short Term Goal (STG) Improve ability to move the R shoulder with pt able to reach for feet with minimal R shoulder pain/discomfort. 04/26/22: Pt able to reach for feet with R shoulder, but L hip discomfort limits ability to tie shoes. STG Duration 05/25/22 progressing 04/26/22 Procurement Assistant Goal (LTG) Improve ability to move the R shoulder with pt able to reach overhead with minimal R shoulder pain/discomfort. 04/26/22: Reaching behind head: C2 Right; T2 Left LTG Duration 06/25/22 slow progress: 04/26 Three Impairment R shoulder pain interrupting sleep at night. Impairment Wakes 2 times per night from R shoulder pain (rated 6/10), primarily when rolling on it. UE QuickDASH score 38.63 (20- 39% impaired) R shoulder strength: Flex 2+/ 5, AB 2/5, ER 4/5, IR 3+/5. L shldr is generally 5/5. Short Term Goal (STG) Improve UE QuickDASH score to 19 or less (1-19% impaired). 04/26/22: Minimal improvement , score 27 (20-39% impaired, score 20-39). STG Duration 05/25/22 progressing 04/26/22 . Fpc Goal (LTG) Improve R shoulder strength with pt able to sleep longer with occasionally waking during the night, mostly without R shoulder pain. 04/26/22: No change LTG Duration 06/25/22 Two Impairment L hip pain limiting functional movement and gait Impairment Intermittent L hip pain rated 5/10. Pt not able to don/doff socks independently. LEFS score 43/80 (40-59% impaired) Short Term Goal (STG) Pt will be able to walk without L anterior hip pain and improve function per LEFS score 49-62 (20-39% impaired). 04/26/22: No improvement, score 40 (40-59% impaired). STG Duration 05/25/22 No improvement . Procurement Assistant Goal (LTG) Pt will be able to don/doff his L sock/shoes independently without or minimal L anterior hip pain, or demonstrate improved function per LEFS score greater than 62. LTG Duration 06/25/22 One Impairment Lacks appropriate self care HEP Short Term Goal (STG) Pt will be educated in best posturing for nighttime sleep and getting in/out of car. 03/13/22: Pt educated in best posturing for nighttime sleep for sidelie. STG Duration 05/25/22 partially met 03/13. Procurement Assistant Goal (LTG) Pt will be independent on a self care HEP to promote L hip mobility and strengthing in areas of deficit and L shoulder ROM/rotator cuff & scapular stabilizing exercises . 03/01/22: HEP: Fig 4 & lateral trunk shift stretch to R. 03/09/22: HEP: LE roll in/ out. 03/13/22: HEP: Clamshell & Hip AD strengthening LTG Duration 06/25/22 progressed . Assessment Summary Assessment Progress has been slow as expected due to pt's comorbidities. Pt shows improved L hip PROM and symmetry with IR/ER and improved L hip strength (flex, AB, AD; also improved active ROM of R shoulder. Minimal improved function (R) UE and no improvement (L) LE, per UE QuickDASH and LEFS scores. R shoulder pain is slightly less at 5/10 (was 6/10) and L hip pain is the same at 6/10. Therapy has been primarily focused on improving the L hip mobility and strength; therefore the pt will benefit from skilled physical therapy for greater focus on rehab for R shoulder impingment syndrome, to include strengthening and ROM ex's with soft tissue mobilization as needed, along with improving L hip ROM. Physical Therapy Plan Frequency and Duration Frequency of Treatment 2x/Week Plan of Care Start Date 04/26/22 Plan of Care End Date 06/25/22 Therapeutic Interventions Therapeutic Interventions Gait Training,Home Exercise Program,Joint Mobilizations, Manual Therapy,Neuromuscular Re-education,Patient/Caregiver Education,Self-Care/Home Management,Soft Tissue Mobilization,Taping, Therapeutic Activities, Therapeutic Exercises Modalities Cold Pack/Ice Massage,Hot Packs,Iontophoresis,Ultrasound Other Therapeutic Interventions Iontophoresis with 4mg/mL Dexamethasone with Sodium Phospate if medically appropriate. Next Visit Focus/Plan Next Note Type Treatment Note Next Visit Plan Try Iontophorersis when POC approved. Assess R shoulder strength. Review HEP: lateral trunk shift stretch. EX: R shoulder/scap stab ex, ROM, and JMT for RC dysfunction. Training cont'd: pull in of TA /hip into joint before hip flex mvmts. Educate pt in best posturing for getting in/out of car. POC: Incr focus R shoulder-R RC rehabilitation with caution for Supraspinatus, & L hip Rehab: degenerative changes of the L hip, subcondral cystic changes of acetabulum and partial tear of L ADD Minimus.
--- NOTE | 2022-04-30 09:03 | PT.OTN ---
Current Diagnoses Pain in right shoulder (04/30/22) Pain in left hip (04/30/22) Muscle weakness (generalized) (04/30/22) Physical Therapy Treatment Note PT-OP-A Visit Information Start: 02/20/22 20:05 Freq: Status: Active Protocol: Document 04/30/22 08:16 LRN (Rec: 04/30/22 09:02 LRN [id number]) Out-Patient Physical Therapy Visit Information Visit Information Visit Type Treatment Note Visit Note PT only Visit Start Time 08:16 Visit Stop Time 08:57 Total Visit Minutes 41 Visit Number 8 total, . Evaluation Information Evaluation Date 02/22/22 Precautions Precautions Uncontrolled very Low HR (36) > Low HR (60), Multiple Sclerosis, chronic back pain, Neuropathy, Dizziness, SOB, Controlled HBP , hx of A.Fib & Kidney stones. PT-OP-B Current Condition Start: 02/20/22 20:05 Freq: Status: Active Protocol: Document 03/13/22 08:16 LRN (Rec: 03/13/22 17:36 LRN [id number]) Current Condition History of Current Condition Onset Date ~12/04/21 L hip, ~12/18/21 R shoulder. Current Complaints Pain with movement at L hip and R shoulder. L hip worse than R shoulder. History of Current Condition Mid November got out of chair, and heard a pop in L hip, and felt severe pain inferior to the L ASIS. A week later was reaching up to grab something and heard a pop in the posterior R shoulder. Pt indicated pain was posterior to the acromion process. Pt denies bruising. Pt reports with walking there is pain in the L anterior hip on stance phase while shifting onto RLE. 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 Pain is stabbing and sharp in nature. Pt requests focus of therapy on R hip to start. Prior Treatments and Tests X-rays: Unremarkable. 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 Attenuated labrum with signal abnormality . PT-OP-C Subjective Start: 02/20/22 20:05 Freq: Status: Active Protocol: Document 04/30/22 08:16 LRN (Rec: 04/30/22 09:02 LRN [id number]) OP-PT Subjective Patient Comments Patient Comments Notices not as excuciating to get socks on. Pain rated 5/10 putting sock on. States he felt he had a work out after last session. PT-OP-D Balance Start: 02/20/22 20:05 Freq: Status: Active Protocol: Document 02/22/22 08:16 LRN (Rec: 02/22/22 18:59 LRN [id number]) Balance Tests Single Limb Standing Single Limb- Right 2 secs Single Limb- Left 1-4 secs PT-OP-E Functional Tests Start: 02/20/22 20:05 Freq: Status: Active Protocol: Document 04/26/22 09:02 LRN (Rec: 04/26/22 09:46 LRN [id number]) Functional Tests Apley's Scratch Test Action 1- Left Slightly behind shoulder Action 1- Right lateral L brachium Action 2- Left overhead T2 Action 2- Right C2 Action 3- Left behind back L2 Action 3- Right Behind back L5 PT-OP-G Mobility & Gait Start: 02/20/22 20:05 Freq: Status: Active Protocol: Document 02/22/22 08:16 LRN (Rec: 02/22/22 18:59 LRN [id number]) OP Mobility Evaluation Transfers Sit to Stand Independent with use of L UE's to help push at knee. Bed to Chair Transfers Independent with pain and use of UE's Car Transfers Inpependent with pain, but has much difficulty using a van ( getting in, really hurts; R shoulder hurts shifting car with automatic - lifting lever ; can't lift cup of water due to not able to lift with arm out to the side). OP Gait Assessment Comments Gait Comments Lacks hip shift L, Trunk shifted R with lean to R. PT-OP-H Neuro Start: 02/20/22 20:05 Freq: Status: Active Protocol: Document 02/22/22 08:16 LRN (Rec: 02/22/22 18:59 LRN [id number]) Sensation Evaluation Gross Sensation Gross Sensation WNL PT-OP-J Posture/Palpation/Skin Start: 02/20/22 20:05 Freq: Status: Active Protocol: Document 02/22/22 08:16 LRN (Rec: 02/22/22 18:59 LRN [id number]) Posture Evaluation Position Standing Head/C-Spine Posture Side Bent Right,Forward Head L-Spine Posture Flattened,Shifted Right Shoulder Posture (L) Elevated Scapula Posture (R) Depressed Weight Distribution Weight Shifted Left Comments Posture Comments Sits with RLE extended. Palpation Assessment Location L hip Palpation Location L hip medial to ASIS and at TFL Palpation Findings Tenderness R shoulder Palpation Location R Subscapular attachment at GHJ Palpation Findings Tenderness PT-OP-K Range of Motion Start: 02/20/22 20:05 Freq: Status: Active Protocol: Document 04/26/22 09:02 LRN (Rec: 04/26/22 09:46 LR [id number]) Shoulder Goniometric Range of Motion Shoulder Right Active Testing Position Standing Flexion 117 Extension 62 Abduction 113 External Rotation at 0 degrees Abduction 50 Left Active Testing Position Standing Flexion 143 Extension 50 Abduction 132 External Rotation at 0 degrees Abduction 65 Hip Goniometric Range of Motion Hip Left Passive Hip ROM WFL No Testing Position Supine Internal Rotation 20 External Rotation 50 Right Passive Hip ROM WFL Yes Testing Position Supine Internal Rotation 25 External Rotation 50 PT-OP-L Special Tests Start: 02/20/22 20:05 Freq: Status: Active Protocol: Document 02/26/22 09:02 LRN (Rec: 02/26/22 12:41 LRN [id number]) Special Tests Lumbar Spine Special Tests Straight Leg Raise Test Results + PSLR - 60 deg's Comments Hamstring tight Hip Special Tests Piriformis Test Results - left Stinchfield Resisted Hip Flexion Test Results + left Scour Test Test Results + left Log Roll Test Test Results + left ISA Test Results + left Comments Painful in anterior hip with positioning Posterior Labral Test Test Results + left Anterior Labral Test Test Results + left PT-OP-M Strength Start: 02/20/22 20:05 Freq: Status: Active Protocol: Document 04/26/22 09:02 LRN (Rec: 04/26/22 09:46 LRN [id number]) Hip Strength Hip Manual Muscle Testing Left Flexion (L2) 4- Good- Abduction 3+ Fair+ Adduction 4- Good- External Rotation 3 Fair Internal Rotation 5 Normal PT-OP-Q Treatments Start: 02/20/22 20:05 Freq: Status: Active Protocol: Document 04/30/22 08:16 LRN (Rec: 04/30/22 09:02 LRN [id number]) Cardio Equipment Bicycle (Upright) Duration (Minutes) 5 Resistance 4-5 Seat Position 6 Other Seat appears low, but pt feels his knees are almost straight on full stroke Therapeutic Exercises Supine Exercises Lat Pull Down Supine Exercise Name Lat pull Down Hip Flex Supine Exercise Name Hip Flex Side bilateral Comments MMT taken Hip AD stretch Supine Exercise Name Supported BKFO position for stretch Side left Reps/Minutes 60 x 2 Chest press Supine Exercise Name Chest press (arms 90 deg's AB) Side bilateral Reps/Minutes 15x 2 Lateral Hip stretch Supine Exercise Name Lateral Hip stretch Side left Reps/Minutes 60 x 2 Comments Extra time to detemine max tolerated stretch Piriformis stretch Supine Exercise Name Ankle crossed over opp knee. Side left Reps/Minutes 60 x 2 Comments Extra time to stay within max tolerated stretch Hamstring stretch Supine Exercise Name Assisted Hamstring/LE stretch Side left Reps/Minutes 3' Standing Exercises Shoulder Retraction Standing Exercise Name Row - Андрей & Single Side bilateral Reps/Minutes 3' Comments Cuing needed for intrascap ms and to keep from elevating shoulder Shoulder ER Standing Exercise Name Shoulder ER strengthening Equipment Used Lev 1 TB, Lev 2 TB Reps/Minutes 15x 2, 15x 1, respectively Shoulder IR Standing Exercise Name Shoulder IR strengthening Equipment Used Lev 2 TB Reps/Minutes 30x PT-OP-R Modalities Start: 02/20/22 20:05 Freq: Status: Active Protocol: Document 03/13/22 08:16 LRN (Rec: 03/13/22 17:50 LRN [id number]) Hot Pack/Cold Pack Treatment Cold Pack Location L ASIS/Greater Trochanter Patient Position Sitting Treatment Duration (minutes) 10 Patient Tolerance Good PT-OP-T Assessment and Plan Start: 02/20/22 20:05 Freq: Status: Active Protocol: Document 04/30/22 08:16 LRN (Rec: 04/30/22 09:02 LRN [id number]) Physical Therapy Assessment Goals Four Impairment Decreased R shoulder ROM due to pain. Impairment R shoulder pain rated 6/10 at posterior to acromion process with movement. R shoulder AROM (sitting, in deg's): Flex 57, AB 42, ER 50 (0 deg's ER), IR reaching behind back to R PSIS. L shoulder AROM (sitting, in deg's): Flex 132, AB 150, ER 65 (0 deg's ER), IR reaching behind back to L4. Short Term Goal (STG) Improve ability to move the R shoulder with pt able to reach for feet with minimal R shoulder pain/discomfort. 04/26/22: Pt able to reach for feet with R shoulder, but L hip discomfort limits ability to tie shoes. STG Duration 05/25/22 progressing 04/26/22 Legal Records Clerk Goal (LTG) Improve ability to move the R shoulder with pt able to reach overhead with minimal R shoulder pain/discomfort. 04/26/22: Reaching behind head: C2 Right; T2 Left LTG Duration 06/25/22 slow progress: 04/26 Three Impairment R shoulder pain interrupting sleep at night. Impairment Wakes 2 times per night from R shoulder pain (rated 6/10), primarily when rolling on it. UE QuickDASH score 38.63 (20- 39% impaired) R shoulder strength: Flex 2+/ 5, AB 2/5, ER 4/5, IR 3+/5. L shldr is generally 5/5. Short Term Goal (STG) Improve UE QuickDASH score to 19 or less (1-19% impaired). 04/26/22: Minimal improvement , score 27 (20-39% impaired, score 20-39). STG Duration 05/25/22 progressing 04/26/22 . Penitentiary Goal (LTG) Improve R shoulder strength with pt able to sleep longer with occasionally waking during the night, mostly without R shoulder pain. 04/26/22: No change LTG Duration 06/25/22 Two Impairment L hip pain limiting functional movement and gait Impairment Intermittent L hip pain rated 5/10. Pt not able to don/doff socks independently. LEFS score 43/80 (40-59% impaired) Short Term Goal (STG) Pt will be able to walk without L anterior hip pain and improve function per LEFS score 49-62 (20-39% impaired). 04/26/22: No improvement, score 40 (40-59% impaired). STG Duration 05/25/22 No improvement . Legal Records Clerk Goal (LTG) Pt will be able to don/doff his L sock/shoes independently without or minimal L anterior hip pain, or demonstrate improved function per LEFS score greater than 62. LTG Duration 06/25/22 One Impairment Lacks appropriate self care HEP Short Term Goal (STG) Pt will be educated in best posturing for nighttime sleep and getting in/out of car. 03/13/22: Pt educated in best posturing for nighttime sleep for sidelie. STG Duration 05/25/22 partially met 03/13. Legal Records Clerk Goal (LTG) Pt will be independent on a self care HEP to promote L hip mobility and strengthing in areas of deficit and L shoulder ROM/rotator cuff & scapular stabilizing exercises . 03/01/22: HEP: Fig 4 & lateral trunk shift stretch to R. 03/09/22: HEP: LE roll in/ out. 03/13/22: HEP: Clamshell & Hip AD strengthening LTG Duration 06/25/22 progressed . Assessment Summary Assessment No increase in pain since last session. He feels pain is less putting on socks, but pain rating is same. Very Good tolerance to R shoulder strengthening. POC not yet signed; therefore not able to use Iontophoresis. Physical Therapy Plan Frequency and Duration Frequency of Treatment 2x/Week Plan of Care Start Date 04/26/22 Plan of Care End Date 06/25/22 Next Visit Focus/Plan Next Note Type Treatment Note Next Visit Plan Try Iontophorersis when POC approved. Assess R shoulder strength. Review HEP: lateral trunk shift stretch. EX: ROM, and JMT for RC dysfunction. Cont R shoulder/ scap stab ex. Training cont'd: pull in of TA /hip into joint before hip flex mvmts. Educate pt in best posturing for getting in/out of car. POC: Incr focus R shoulder-R RC rehabilitation with caution for Supraspinatus, & L hip Rehab: degenerative changes of the L hip, subcondral cystic changes of acetabulum and partial tear of L ADD Minimus.
--- NOTE | 2022-06-05 13:11 | PT.OTN ---
Current Diagnoses Pain in right shoulder (06/05/22) Pain in left hip (06/05/22) Muscle weakness (generalized) (06/05/22) Physical Therapy Treatment Note PT-OP-A Visit Information Start: 02/20/22 20:05 Freq: Status: Active Protocol: Document 06/05/22 08:15 AMB (Rec: 06/05/22 08:54 AMB [id number]) Out-Patient Physical Therapy Visit Information Visit Information Visit Type Treatment Note Visit Note PT only Visit Start Time 08:16 Visit Stop Time 08:57 Total Visit Minutes 41 Visit Number 9total, . PT-OP-B Current Condition Start: 02/20/22 20:05 Freq: Status: Active Protocol: Document 03/13/22 08:16 LRN (Rec: 03/13/22 17:36 LRN [id number]) Current Condition History of Current Condition Onset Date ~12/04/21 L hip, ~12/18/21 R shoulder. Current Complaints Pain with movement at L hip and R shoulder. L hip worse than R shoulder. History of Current Condition Mid November got out of chair, and heard a pop in L hip, and felt severe pain inferior to the L ASIS. A week later was reaching up to grab something and heard a pop in the posterior R shoulder. Pt indicated pain was posterior to the acromion process. Pt denies bruising. Pt reports with walking there is pain in the L anterior hip on stance phase while shifting onto RLE. He can order picker heavy things off the floor with his R shoulder, but has pain with moving the arm away from the body out to the side and fwd ~ 80 deg's. Pain is stabbing and sharp in nature. Pt requests focus of therapy on R hip to start. Prior Treatments and Tests X-rays: Unremarkable. 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 Attenuated labrum with signal abnormality . PT-OP-C Subjective Start: 02/20/22 20:05 Freq: Status: Active Protocol: Document 06/05/22 08:15 AMB (Rec: 06/05/22 08:54 AMB [id number]) OP-PT Subjective Patient Comments Patient Comments Hip is feeling much better, shoulder is strained after lifting suitcases. PT-OP-D Balance Start: 02/20/22 20:05 Freq: Status: Active Protocol: Document 02/22/22 08:16 LRN (Rec: 02/22/22 18:59 LRN [id number]) Balance Tests Single Limb Standing Single Limb- Right 2 secs Single Limb- Left 1-4 secs PT-OP-E Functional Tests Start: 02/20/22 20:05 Freq: Status: Active Protocol: Document 04/26/22 09:02 LRN (Rec: 04/26/22 09:46 LRN [id number]) Functional Tests Apley's Scratch Test Action 1- Left Slightly behind shoulder Action 1- Right lateral L brachium Action 2- Left overhead T2 Action 2- Right C2 Action 3- Left behind back L2 Action 3- Right Behind back L5 PT-OP-G Mobility & Gait Start: 02/20/22 20:05 Freq: Status: Active Protocol: Document 02/22/22 08:16 LRN (Rec: 02/22/22 18:59 LRN [id number]) OP Mobility Evaluation Transfers Sit to Stand Independent with use of L UE's to help push at knee. Bed to Chair Transfers Independent with pain and use of UE's Car Transfers Inpependent with pain, but has much difficulty using a van ( getting in, really hurts; R shoulder hurts shifting car with automatic - lifting lever ; can't lift cup of water due to not able to lift with arm out to the side). OP Gait Assessment Comments Gait Comments Lacks hip shift L, Trunk shifted R with lean to R. PT-OP-H Neuro Start: 02/20/22 20:05 Freq: Status: Active Protocol: Document 02/22/22 08:16 LRN (Rec: 02/22/22 18:59 LRN [id number]) Sensation Evaluation Gross Sensation Gross Sensation WNL PT-OP-J Posture/Palpation/Skin Start: 02/20/22 20:05 Freq: Status: Active Protocol: Document 02/22/22 08:16 LRN (Rec: 02/22/22 18:59 LRN [id number]) Posture Evaluation Position Standing Head/C-Spine Posture Side Bent Right,Forward Head L-Spine Posture Flattened,Shifted Right Shoulder Posture (L) Elevated Scapula Posture (R) Depressed Weight Distribution Weight Shifted Left Comments Posture Comments Sits with RLE extended. Palpation Assessment Location L hip Palpation Location L hip medial to ASIS and at TFL Palpation Findings Tenderness R shoulder Palpation Location R Subscapular attachment at GHJ Palpation Findings Tenderness PT-OP-K Range of Motion Start: 02/20/22 20:05 Freq: Status: Active Protocol: Document 04/26/22 09:02 LRN (Rec: 04/26/22 09:46 LRN [id number]) Shoulder Goniometric Range of Motion Shoulder Right Active Testing Position Standing Flexion 117 Extension 62 Abduction 113 External Rotation at 0 degrees Abduction 50 Left Active Testing Position Standing Flexion 143 Extension 50 Abduction 132 External Rotation at 0 degrees Abduction 65 Hip Goniometric Range of Motion Hip Left Passive Hip ROM WFL No Testing Position Supine Internal Rotation 20 External Rotation 50 Right Passive Hip ROM WFL Yes Testing Position Supine Internal Rotation 25 External Rotation 50 PT-OP-L Special Tests Start: 02/20/22 20:05 Freq: Status: Active Protocol: Document 02/26/22 09:02 LRN (Rec: 02/26/22 12:41 LRN [id number]) Special Tests Lumbar Spine Special Tests Straight Leg Raise Test Results + PSLR - 60 deg's Comments Hamstring tight Hip Special Tests Piriformis Test Results - left Stinchfield Resisted Hip Flexion Test Results + left Scour Test Test Results + left Log Roll Test Test Results + left ISA Test Results + left Comments Painful in anterior hip with positioning Posterior Labral Test Test Results + left Anterior Labral Test Test Results + left PT-OP-M Strength Start: 02/20/22 20:05 Freq: Status: Active Protocol: Document 04/26/22 09:02 LRN (Rec: 04/26/22 09:46 LRN [id number]) Hip Strength Hip Manual Muscle Testing Left Flexion (L2) 4- Good- Abduction 3+ Fair+ Adduction 4- Good- External Rotation 3 Fair Internal Rotation 5 Normal PT-OP-Q Treatments Start: 02/20/22 20:05 Freq: Status: Active Protocol: Document 06/05/22 08:15 AMB (Rec: 06/05/22 08:54 AMB [id number]) Therapeutic Exercises Sitting Exercises shoulder table stretch Sitting Exercise Name flexion and adduction stretch Reps/Minutes 30x4 Standing Exercises shoulder rows t band Resistance #2 t band Comments 2x10 Shoulder ER Standing Exercise Name Shoulder ER strengthening Equipment Used Lev 2 TB Reps/Minutes 15x 2, 15x 1, respectively Shoulder IR Standing Exercise Name Shoulder IR strengthening Equipment Used Lev 2 TB Reps/Minutes 30x Manual Therapy Treatment Manual Techniques PROM Body Location R shoulder Comments flexion, abduction, ER, IR PT-OP-R Modalities Start: 02/20/22 20:05 Freq: Status: Active Protocol: Document 06/05/22 09:00 AMB (Rec: 06/05/22 09:00 AMB [id number]) Iontophoresis Treatment R shoulder Treatment Medication Dexamethasone (-) Medication Amount (mL) (ml) 1 Treatment Polarity Negative to Negative PT-OP-T Assessment and Plan Start: 02/20/22 20:05 Freq: Status: Active Protocol: Document 06/05/22 08:15 AMB (Rec: 06/05/22 08:54 AMB [id number]) Physical Therapy Assessment Goals Four Impairment Decreased R shoulder ROM due to pain. Impairment R shoulder pain rated 6/10 at posterior to acromion process with movement. R shoulder AROM (sitting, in deg's): Flex 57, AB 42, ER 50 (0 deg's ER), IR reaching behind back to R PSIS. L shoulder AROM (sitting, in deg's): Flex 132, AB 150, ER 65 (0 deg's ER), IR reaching behind back to L4. Short Term Goal (STG) Improve ability to move the R shoulder with pt able to reach for feet with minimal R shoulder pain/discomfort. 04/26/22: Pt able to reach for feet with R shoulder, but L hip discomfort limits ability to tie shoes. STG Duration 05/25/22 progressing 04/26/22 Mcfp Goal (LTG) Improve ability to move the R shoulder with pt able to reach overhead with minimal R shoulder pain/discomfort. 04/26/22: Reaching behind head: C2 Right; T2 Left LTG Duration 06/25/22 slow progress: 04/26 Three Impairment R shoulder pain interrupting sleep at night. Impairment Wakes 2 times per night from R shoulder pain (rated 6/10), primarily when rolling on it. UE QuickDASH score 38.63 (20- 39% impaired) R shoulder strength: Flex 2+/ 5, AB 2/5, ER 4/5, IR 3+/5. L shldr is generally 5/5. Short Term Goal (STG) Improve UE QuickDASH score to 19 or less (1-19% impaired). 04/26/22: Minimal improvement , score 27 (20-39% impaired, score 20-39). STG Duration 05/25/22 progressing 04/26/22 . Combat Systems Operator Goal (LTG) Improve R shoulder strength with pt able to sleep longer with occasionally waking during the night, mostly without R shoulder pain. 04/26/22: No change LTG Duration 06/25/22 Two Impairment L hip pain limiting functional movement and gait Impairment Intermittent L hip pain rated 5/10. Pt not able to don/doff socks independently. LEFS score 43/80 (40-59% impaired) Short Term Goal (STG) Pt will be able to walk without L anterior hip pain and improve function per LEFS score 49-62 (20-39% impaired). 04/26/22: No improvement, score 40 (40-59% impaired). STG Duration 05/25/22 No improvement . Combat Systems Operator Goal (LTG) Pt will be able to don/doff his L sock/shoes independently without or minimal L anterior hip pain, or demonstrate improved function per LEFS score greater than 62. LTG Duration 06/25/22 One Impairment Lacks appropriate self care HEP Short Term Goal (STG) Pt will be educated in best posturing for nighttime sleep and getting in/out of car. 03/13/22: Pt educated in best posturing for nighttime sleep for sidelie. STG Duration 05/25/22 partially met 03/13. Mcfp Goal (LTG) Pt will be independent on a self care HEP to promote L hip mobility and strengthing in areas of deficit and L shoulder ROM/rotator cuff & scapular stabilizing exercises . 03/01/22: HEP: Fig 4 & lateral trunk shift stretch to R. 03/09/22: HEP: LE roll in/ out. 03/13/22: HEP: Clamshell & Hip AD strengthening LTG Duration 06/25/22 progressed . Assessment Summary Assessment Pt reports increased pain in shoulder, has not been doing band exercises. Feels like hip has improved well and can don socks shoes without pain. He did present today with significant stiffness in GH joint, encouraged in returning to shoulder stretching and strengthening program now deann the has returned from vacation . Physical Therapy Plan Frequency and Duration Frequency of Treatment 2x/Week Plan of Care Start Date 04/26/22 Plan of Care End Date 06/25/22 Therapeutic Interventions Therapeutic Interventions Gait Training,Home Exercise Program,Joint Mobilizations, Manual Therapy,Neuromuscular Re-education,Patient/Caregiver Education,Self-Care/Home Management,Soft Tissue Mobilization,Taping, Therapeutic Activities, Therapeutic Exercises Modalities Cold Pack/Ice Massage,Hot Packs,Iontophoresis,Ultrasound Other Therapeutic Interventions Iontophoresis with 4mg/mL Dexamethasone with Sodium Phospate if medically appropriate. Next Visit Focus/Plan Next Note Type Treatment Note Next Visit Plan Try Iontophorersis when POC approved. Assess R shoulder strength. Review HEP: lateral trunk shift stretch. EX: ROM, and JMT for RC dysfunction. Cont R shoulder/ scap stab ex. Training cont'd: pull in of TA /hip into joint before hip flex mvmts. Educate pt in best posturing for getting in/out of car. POC: Incr focus R shoulder-R RC rehabilitation with caution for Supraspinatus, & L hip Rehab: degenerative changes of the L hip, subcondral cystic changes of acetabulum and partial tear of L ADD Minimus.
--- NOTE | 2022-06-07 15:12 | PT.OTN ---
Current Diagnoses Pain in right shoulder (06/07/22) Pain in left hip (06/07/22) Muscle weakness (generalized) (06/07/22) Physical Therapy Treatment Note PT-OP-A Visit Information Start: 02/20/22 20:05 Freq: Status: Active Protocol: Document 06/07/22 08:12 SAK (Rec: 06/07/22 09:05 SAK [id number]) Out-Patient Physical Therapy Visit Information Visit Information Visit Type Treatment Note Visit Note PT only Visit Start Time 08:16 Visit Stop Time 08:57 Total Visit Minutes 42 Visit Number 10total, . PT-OP-B Current Condition Start: 02/20/22 20:05 Freq: Status: Active Protocol: Document 03/13/22 08:16 LRN (Rec: 03/13/22 17:36 LRN [id number]) Current Condition History of Current Condition Onset Date ~12/04/21 L hip, ~12/18/21 R shoulder. Current Complaints Pain with movement at L hip and R shoulder. L hip worse than R shoulder. History of Current Condition Mid November got out of chair, and heard a pop in L hip, and felt severe pain inferior to the L ASIS. A week later was reaching up to grab something and heard a pop in the posterior R shoulder. Pt indicated pain was posterior to the acromion process. Pt denies bruising. Pt reports with walking there is pain in the L anterior hip on stance phase while shifting onto RLE. 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 Pain is stabbing and sharp in nature. Pt requests focus of therapy on R hip to start. Prior Treatments and Tests X-rays: Unremarkable. 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 Attenuated labrum with signal abnormality . PT-OP-C Subjective Start: 02/20/22 20:05 Freq: Status: Active Protocol: Document 06/07/22 08:12 SAK (Rec: 06/07/22 09:05 SAK [id number]) OP-PT Subjective Patient Comments Patient Comments Hip feeling pretty good, still wants to focus mainly on shoulder. Iontophoresis on 5hrs, doesn't think he felt a difference with it. Most painful reaching overhead and out to side, ie to reach for water glass at table next to him or off passenger seat. PT-OP-D Balance Start: 02/20/22 20:05 Freq: Status: Active Protocol: Document 02/22/22 08:16 LRN (Rec: 02/22/22 18:59 LRN [id number]) Balance Tests Single Limb Standing Single Limb- Right 2 secs Single Limb- Left 1-4 secs PT-OP-E Functional Tests Start: 02/20/22 20:05 Freq: Status: Active Protocol: Document 04/26/22 09:02 LRN (Rec: 04/26/22 09:46 LRN [id number]) Functional Tests Apley's Scratch Test Action 1- Left Slightly behind shoulder Action 1- Right lateral L brachium Action 2- Left overhead T2 Action 2- Right C2 Action 3- Left behind back L2 Action 3- Right Behind back L5 PT-OP-G Mobility & Gait Start: 02/20/22 20:05 Freq: Status: Active Protocol: Document 02/22/22 08:16 LRN (Rec: 02/22/22 18:59 LRN [id number]) OP Mobility Evaluation Transfers Sit to Stand Independent with use of L UE's to help push at knee. Bed to Chair Transfers Independent with pain and use of UE's Car Transfers Inpependent with pain, but has much difficulty using a van ( getting in, really hurts; R shoulder hurts shifting car with automatic - lifting lever ; can't lift cup of water due to not able to lift with arm out to the side). OP Gait Assessment Comments Gait Comments Lacks hip shift L, Trunk shifted R with lean to R. PT-OP-H Neuro Start: 02/20/22 20:05 Freq: Status: Active Protocol: Document 02/22/22 08:16 LRN (Rec: 02/22/22 18:59 LRN [id number]) Sensation Evaluation Gross Sensation Gross Sensation WNL PT-OP-J Posture/Palpation/Skin Start: 02/20/22 20:05 Freq: Status: Active Protocol: Document 02/22/22 08:16 LRN (Rec: 02/22/22 18:59 LRN [id number]) Posture Evaluation Position Standing Head/C-Spine Posture Side Bent Right,Forward Head L-Spine Posture Flattened,Shifted Right Shoulder Posture (L) Elevated Scapula Posture (R) Depressed Weight Distribution Weight Shifted Left Comments Posture Comments Sits with RLE extended. Palpation Assessment Location L hip Palpation Location L hip medial to ASIS and at TFL Palpation Findings Tenderness R shoulder Palpation Location R Subscapular attachment at GHJ Palpation Findings Tenderness PT-OP-K Range of Motion Start: 02/20/22 20:05 Freq: Status: Active Protocol: Document 04/26/22 09:02 LRN (Rec: 04/26/22 09:46 LRN [id number]) Shoulder Goniometric Range of Motion Shoulder Right Active Testing Position Standing Flexion 117 Extension 62 Abduction 113 External Rotation at 0 degrees Abduction 50 Left Active Testing Position Standing Flexion 143 Extension 50 Abduction 132 External Rotation at 0 degrees Abduction 65 Hip Goniometric Range of Motion Hip Left Passive Hip ROM WFL No Testing Position Supine Internal Rotation 20 External Rotation 50 Right Passive Hip ROM WFL Yes Testing Position Supine Internal Rotation 25 External Rotation 50 PT-OP-L Special Tests Start: 02/20/22 20:05 Freq: Status: Active Protocol: Document 02/26/22 09:02 LRN (Rec: 02/26/22 12:41 LRN [id number]) Special Tests Lumbar Spine Special Tests Straight Leg Raise Test Results + PSLR - 60 deg's Comments Hamstring tight Hip Special Tests Piriformis Test Results - left Stinchfield Resisted Hip Flexion Test Results + left Scour Test Test Results + left Log Roll Test Test Results + left ISA Test Results + left Comments Painful in anterior hip with positioning Posterior Labral Test Test Results + left Anterior Labral Test Test Results + left PT-OP-M Strength Start: 02/20/22 20:05 Freq: Status: Active Protocol: Document 04/26/22 09:02 LRN (Rec: 04/26/22 09:46 LRN [id number]) Hip Strength Hip Manual Muscle Testing Left Flexion (L2) 4- Good- Abduction 3+ Fair+ Adduction 4- Good- External Rotation 3 Fair Internal Rotation 5 Normal PT-OP-Q Treatments Start: 02/20/22 20:05 Freq: Status: Active Protocol: Document 06/07/22 08:12 [facility] (Rec: 06/07/22 09:05 [facility] [id number]) Cardio Equipment Bicycle (Upright) Duration (Minutes) 5 Resistance 4-5 Seat Position 6 Other postural cues, reports anterior shoulde pain with shoulder retraction Therapeutic Exercises Supine Exercises serratus punch Reps/Minutes 10x2 Comments issued HO for HEP Sitting Exercises pulleys Sitting Exercise Name flexion and scaption Reps/Minutes 10x ea Comments cues for painfree ROM shoulder table stretch Sitting Exercise Name HEP Standing Exercises overhead pull down Resistance L2 Reps/Minutes 10x2 Comments chair facing away from bands , cues for slow, controlled shoulder rows t band Resistance #2 t band Reps/Minutes 2x10 Comments tactile and verbal cues for scapular retraction and depr Shoulder ER Standing Exercise Name Shoulder ER strengthening Equipment Used Lev 2 TB Reps/Minutes 15x 2 Comments cues for slow, controlled eccentric Shoulder IR Standing Exercise Name Shoulder IR strengthening Equipment Used Lev 2 TB Reps/Minutes 30x Comments cues for slow, controlled eccentric Manual Therapy Treatment Soft Tissue Mobilization periscapular Intensity/Depth Moderate Body Position Sidelying Taping right shoulder Treatment Focus pain relief/support, scapular retraction and depression/ postural correction Type of Tape kinesiotape Skin Inspection intact Comments I strip T10 to anterior shoulder with 50% stretch Y strip deltoid insertion ant and post deltoid with 50% stretch Manual Techniques PROM Body Location R shoulder Comments flexion, abduction, ER, IR PT-OP-R Modalities Start: 02/20/22 20:05 Freq: Status: Active Protocol: Document 06/07/22 08:12 [facility] (Rec: 06/07/22 09:05 [facility] [id number]) Iontophoresis Treatment R shoulder Treatment Medication Dexamethasone (-) Medication Amount (mL) (ml) 1 Treatment Polarity Negative to Negative PT-OP-T Assessment and Plan Start: 02/20/22 20:05 Freq: Status: Active Protocol: Document 06/07/22 08:12 [facility] (Rec: 06/07/22 09:05 [facility] [id number]) Physical Therapy Assessment Goals Four Impairment Decreased R shoulder ROM due to pain. Impairment R shoulder pain rated 6/10 at posterior to acromion process with movement. R shoulder AROM (sitting, in deg's): Flex 57, AB 42, ER 50 (0 deg's ER), IR reaching behind back to R PSIS. L shoulder AROM (sitting, in deg's): Flex 132, AB 150, ER 65 (0 deg's ER), IR reaching behind back to L4. Short Term Goal (STG) Improve ability to move the R shoulder with pt able to reach for feet with minimal R shoulder pain/discomfort. 04/26/22: Pt able to reach for feet with R shoulder, but L hip discomfort limits ability to tie shoes. STG Duration 05/25/22 progressing 04/26/22 Halfway Goal (LTG) Improve ability to move the R shoulder with pt able to reach overhead with minimal R shoulder pain/discomfort. 04/26/22: Reaching behind head: C2 Right; T2 Left LTG Duration 06/25/22 slow progress: 04/26 Three Impairment R shoulder pain interrupting sleep at night. Impairment Wakes 2 times per night from R shoulder pain (rated 6/10), primarily when rolling on it. UE QuickDASH score 38.63 (20- 39% impaired) R shoulder strength: Flex 2+/ 5, AB 2/5, ER 4/5, IR 3+/5. L shldr is generally 5/5. Short Term Goal (STG) Improve UE QuickDASH score to 19 or less (1-19% impaired). 04/26/22: Minimal improvement , score 27 (20-39% impaired, score 20-39). STG Duration 05/25/22 progressing 04/26/22 . Halfway Goal (LTG) Improve R shoulder strength with pt able to sleep longer with occasionally waking during the night, mostly without R shoulder pain. 04/26/22: No change LTG Duration 06/25/22 Two Impairment L hip pain limiting functional movement and gait Impairment Intermittent L hip pain rated 5/10. Pt not able to don/doff socks independently. LEFS score 43/80 (40-59% impaired) Short Term Goal (STG) Pt will be able to walk without L anterior hip pain and improve function per LEFS score 49-62 (20-39% impaired). 04/26/22: No improvement, score 40 (40-59% impaired). STG Duration 05/25/22 No improvement . Halfway Goal (LTG) Pt will be able to don/doff his L sock/shoes independently without or minimal L anterior hip pain, or demonstrate improved function per LEFS score greater than 62. LTG Duration 06/25/22 One Impairment Lacks appropriate self care HEP Short Term Goal (STG) Pt will be educated in best posturing for nighttime sleep and getting in/out of car. 03/13/22: Pt educated in best posturing for nighttime sleep for sidelie. STG Duration 05/25/22 partially met 03/13. 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 03/01/22: HEP: Fig 4 & lateral trunk shift stretch to R. 03/09/22: HEP: LE roll in/ out. 03/13/22: HEP: Clamshell & Hip AD strengthening LTG Duration 06/25/22 progressed . Assessment Summary Assessment anterior right shoulder pain experienced initially with postural correction during upright bike. Improved through session though still having some discomfort. Improved scapular activation and ability to decrease UT overactivation. Physical Therapy Plan Frequency and Duration Frequency of Treatment 2x/Week Plan of Care Start Date 04/26/22 Plan of Care End Date 06/25/22 Therapeutic Interventions Therapeutic Interventions Gait Training,Home Exercise Program,Joint Mobilizations, Manual Therapy,Neuromuscular Re-education,Patient/Caregiver Education,Self-Care/Home Management,Soft Tissue Mobilization,Taping, Therapeutic Activities, Therapeutic Exercises Modalities Cold Pack/Ice Massage,Hot Packs,Iontophoresis,Ultrasound Other Therapeutic Interventions Iontophoresis with 4mg/mL Dexamethasone with Sodium Phospate if medically appropriate. Next Visit Focus/Plan Next Note Type Treatment Note Next Visit Plan Assess right shoulder strength , review HEP, continue right shoulder/scap stab ex.
--- NOTE | 2022-06-12 12:36 | PT.OTN ---
Current Diagnoses Pain in right shoulder (06/12/22) Pain in left hip (06/12/22) Muscle weakness (generalized) (06/12/22) Physical Therapy Treatment Note PT-OP-A Visit Information Start: 02/20/22 20:05 Freq: Status: Active Protocol: Document 06/12/22 08:17 LRN (Rec: 06/12/22 09:05 LRN [id number]) Out-Patient Physical Therapy Visit Information Visit Information Visit Type Treatment Note Visit Note PT only Visit Start Time 08:17 Visit Stop Time 08:59 Total Visit Minutes 42 Visit Number 11 total, . Evaluation Information Evaluation Date 02/22/22 Precautions Precautions Uncontrolled very Low HR (36) > Low HR (60), Multiple Sclerosis, chronic back pain, Neuropathy, Dizziness, SOB, Controlled HBP , hx of A.Fib & Kidney stones. PT-OP-B Current Condition Start: 02/20/22 20:05 Freq: Status: Active Protocol: Document 03/13/22 08:16 LRN (Rec: 03/13/22 17:36 LRN [id number]) Current Condition History of Current Condition Onset Date ~12/04/21 L hip, ~12/18/21 R shoulder. Current Complaints Pain with movement at L hip and R shoulder. L hip worse than R shoulder. History of Current Condition Mid November got out of chair, and heard a pop in L hip, and felt severe pain inferior to the L ASIS. A week later was reaching up to grab something and heard a pop in the posterior R shoulder. Pt indicated pain was posterior to the acromion process. Pt denies bruising. Pt reports with walking there is pain in the L anterior hip on stance phase while shifting onto RLE. 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 Pain is stabbing and sharp in nature. Pt requests focus of therapy on R hip to start. Prior Treatments and Tests X-rays: Unremarkable. 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 Attenuated labrum with signal abnormality . PT-OP-C Subjective Start: 02/20/22 20:05 Freq: Status: Active Protocol: Document 06/12/22 08:17 LRN (Rec: 06/12/22 09:05 LRN [id number]) OP-PT Subjective Patient Comments Patient Comments Problem with R shoulder is that he can't reach behind to lift a glass of water and showing AB of shoulder to 90 deg's. Can no put socks on and reach for feet without R shoulder pain. States he isn' t sure tape was helpful last time. PT-OP-D Balance Start: 02/20/22 20:05 Freq: Status: Active Protocol: Document 02/22/22 08:16 LRN (Rec: 02/22/22 18:59 LRN [id number]) Balance Tests Single Limb Standing Single Limb- Right 2 secs Single Limb- Left 1-4 secs PT-OP-E Functional Tests Start: 02/20/22 20:05 Freq: Status: Active Protocol: Document 04/26/22 09:02 LRN (Rec: 04/26/22 09:46 LRN [id number]) Functional Tests Apley's Scratch Test Action 1- Left Slightly behind shoulder Action 1- Right lateral L brachium Action 2- Left overhead T2 Action 2- Right C2 Action 3- Left behind back L2 Action 3- Right Behind back L5 PT-OP-G Mobility & Gait Start: 02/20/22 20:05 Freq: Status: Active Protocol: Document 02/22/22 08:16 LRN (Rec: 02/22/22 18:59 LRN [id number]) OP Mobility Evaluation Transfers Sit to Stand Independent with use of L UE's to help push at knee. Bed to Chair Transfers Independent with pain and use of UE's Car Transfers Inpependent with pain, but has much difficulty using a van ( getting in, really hurts; R shoulder hurts shifting car with automatic - lifting lever ; can't lift cup of water due to not able to lift with arm out to the side). OP Gait Assessment Comments Gait Comments Lacks hip shift L, Trunk shifted R with lean to R. PT-OP-H Neuro Start: 02/20/22 20:05 Freq: Status: Active Protocol: Document 02/22/22 08:16 LRN (Rec: 02/22/22 18:59 LRN [id number]) Sensation Evaluation Gross Sensation Gross Sensation WNL PT-OP-J Posture/Palpation/Skin Start: 02/20/22 20:05 Freq: Status: Active Protocol: Document 02/22/22 08:16 LRN (Rec: 02/22/22 18:59 LRN [id number]) Posture Evaluation Position Standing Head/C-Spine Posture Side Bent Right,Forward Head L-Spine Posture Flattened,Shifted Right Shoulder Posture (L) Elevated Scapula Posture (R) Depressed Weight Distribution Weight Shifted Left Comments Posture Comments Sits with RLE extended. Palpation Assessment Location L hip Palpation Location L hip medial to ASIS and at TFL Palpation Findings Tenderness R shoulder Palpation Location R Subscapular attachment at GHJ Palpation Findings Tenderness PT-OP-K Range of Motion Start: 02/20/22 20:05 Freq: Status: Active Protocol: Document 04/26/22 09:02 LRN (Rec: 04/26/22 09:46 LRN [id number]) Shoulder Goniometric Range of Motion Shoulder Right Active Testing Position Standing Flexion 117 Extension 62 Abduction 113 External Rotation at 0 degrees Abduction 50 Left Active Testing Position Standing Flexion 143 Extension 50 Abduction 132 External Rotation at 0 degrees Abduction 65 Hip Goniometric Range of Motion Hip Left Passive Hip ROM WFL No Testing Position Supine Internal Rotation 20 External Rotation 50 Right Passive Hip ROM WFL Yes Testing Position Supine Internal Rotation 25 External Rotation 50 PT-OP-L Special Tests Start: 02/20/22 20:05 Freq: Status: Active Protocol: Document 02/26/22 09:02 LRN (Rec: 02/26/22 12:41 LRN [id number]) Special Tests Lumbar Spine Special Tests Straight Leg Raise Test Results + PSLR - 60 deg's Comments Hamstring tight Hip Special Tests Piriformis Test Results - left Stinchfield Resisted Hip Flexion Test Results + left Scour Test Test Results + left Log Roll Test Test Results + left ISA Test Results + left Comments Painful in anterior hip with positioning Posterior Labral Test Test Results + left Anterior Labral Test Test Results + left PT-OP-M Strength Start: 02/20/22 20:05 Freq: Status: Active Protocol: Document 06/12/22 08:17 LRN (Rec: 06/12/22 09:05 LRN [id number]) Shoulder Strength Shoulder Manual Muscle Testing Right Flexion 4 Good Abduction (C5) 2 Poor External Rotation 3 Fair Internal Rotation 3 Fair Left Flexion 4+ Good+ Adduction 4 Good External Rotation 4+ Good+ Internal Rotation 4+ Good+ PT-OP-Q Treatments Start: 02/20/22 20:05 Freq: Status: Active Protocol: Document 06/12/22 08:17 LRN (Rec: 06/12/22 09:05 LRN [id number]) Therapeutic Exercises Supine Exercises Median n gliding Supine Exercise Name Median n gliding w/o tension Side right Comments Arm by side/ER, wrist ext/flex serratus punch Supine Exercise Name Punch to ceiling holding dowel Equipment Used Cane Reps/Minutes 10x2 Comments issued HO for HEP Lat Pull Down Supine Exercise Name Lat pull Down Side bilateral Equipment Used L3 TB Reps/Minutes 15x 2 Sidelying Exercises R Shoulder ER Sidelying Exercise Name Active ER Side right Reps/Minutes 30x Comments Extra time for addition of scap, cuing needed Sitting Exercises Nerve gliding Sitting Exercise Name Wrist/finger ext - arm by side and out 30 deg's Reps/Minutes 10 Row Sitting Exercise Name Row Standing Exercises Scap Depression/Retraction Standing Exercise Name Scap Depr/Retract Side bilateral Equipment Used L2 Scap Retraction Standing Exercise Name Scap Retraction Side bilateral Equipment Used L2 TB Scapula Depression Standing Exercise Name Scap Depression Side right Equipment Used L2 TB overhead pull down Standing Exercise Name Shdr Ext Side bilateral Resistance L2 Equipment Used Mirror Reps/Minutes 10x2 Comments Much standing, phy & v cuing PT-OP-R Modalities Start: 02/20/22 20:05 Freq: Status: Active Protocol: Document 06/07/22 08:12 [facility] (Rec: 06/07/22 09:05 SAK [id number]) Iontophoresis Treatment R shoulder Treatment Medication Dexamethasone (-) Medication Amount (mL) (ml) 1 Treatment Polarity Negative to Negative PT-OP-T Assessment and Plan Start: 02/20/22 20:05 Freq: Status: Active Protocol: Document 06/12/22 08:17 LRN (Rec: 06/12/22 09:05 LRN [id number]) Physical Therapy Assessment Goals Four Impairment Decreased R shoulder ROM due to pain. Impairment R shoulder pain rated 6/10 at posterior to acromion process with movement. R shoulder AROM (sitting, in deg's): Flex 57, AB 42, ER 50 (0 deg's ER), IR reaching behind back to R PSIS. L shoulder AROM (sitting, in deg's): Flex 132, AB 150, ER 65 (0 deg's ER), IR reaching behind back to L4. Short Term Goal (STG) Improve ability to move the R shoulder with pt able to reach for feet with minimal R shoulder pain/discomfort. 04/26/22: Pt able to reach for feet with R shoulder, but L hip discomfort limits ability to tie shoes. 06/12/22: Tight in shoulder. STG Duration 05/25/22 (06/12/22: MET GOAL) Detention Goal (LTG) Improve ability to move the R shoulder with pt able to reach overhead with minimal R shoulder pain/discomfort. 04/26/22: Reaching behind head: C2 Right; T2 Left LTG Duration 06/25/22 slow progress: 04/26 Three Impairment R shoulder pain interrupting sleep at night. Impairment Wakes 2 times per night from R shoulder pain (rated 6/10), primarily when rolling on it. UE QuickDASH score 38.63 (20- 39% impaired) R shoulder strength: Flex 2+/ 5, AB 2/5, ER 4/5, IR 3+/5. L shldr is generally 5/5. Short Term Goal (STG) Improve UE QuickDASH score to 19 or less (1-19% impaired). 04/26/22: Minimal improvement , score 27 (20-39% impaired, score 20-39). STG Duration 05/25/22 progressing 04/26/22 . Detention Goal (LTG) Improve R shoulder strength with pt able to sleep longer with occasionally waking during the night, mostly without R shoulder pain. 04/26/22: No change LTG Duration 06/25/22 Two Impairment L hip pain limiting functional movement and gait Impairment Intermittent L hip pain rated 5/10. Pt not able to don/doff socks independently. LEFS score 43/80 (40-59% impaired) Short Term Goal (STG) Pt will be able to walk without L anterior hip pain and improve function per LEFS score 49-62 (20-39% impaired). 04/26/22: No improvement, score 40 (40-59% impaired). STG Duration 05/25/22 No improvement . Director Machine Goal (LTG) Pt will be able to don/doff his L sock/shoes independently without or minimal L anterior hip pain, or demonstrate improved function per LEFS score greater than 62. 06/12/22: Pt reports being able to don/doff L sock/shoes independently without L anterior hip pain (LEFS not taken) LTG Duration 06/25/22 (06/12/22: MET GOAL) One Impairment Lacks appropriate self care HEP Short Term Goal (STG) Pt will be educated in best posturing for nighttime sleep and getting in/out of car. 03/13/22: Pt educated in best posturing for nighttime sleep for sidelie. STG Duration 05/25/22 partially met 03/13. Director Machine Goal (LTG) Pt will be independent on a self care HEP to promote L hip mobility and strengthing in areas of deficit and L shoulder ROM/rotator cuff & scapular stabilizing exercises . 03/01/22: HEP: Fig 4 & lateral trunk shift stretch to R. 03/09/22: HEP: LE roll in/ out. 03/13/22: HEP: Clamshell & Hip AD strengthening LTG Duration 06/25/22 progressed . Assessment Summary Assessment STG #4 and LTG #2 MET. Pt R hip pain appears resolved, but may possibly have a neural connection with onset of pain of R hip, shldr, & jaw at around the same time. Pt has + ULNTs indicating neural tension in R Median, Ulnar & Radial n. and R shoulder impingement. Physical Therapy Plan Frequency and Duration Frequency of Treatment 2x/Week Plan of Care Start Date 04/26/22 Plan of Care End Date 06/25/22 Next Visit Focus/Plan Next Note Type Treatment Note Next Visit Plan PN next visit. Add R and L ULNT sliders over tensioner gliding ex's. HEP: lateral trunk shift stretch, continue right shoulder/scap stab ex. (STG #1)-Educate pt in best posturing for getting in/out of car. Try Iontophorersis R shldr. EX: ROM, and JMT for RC dysfunction. POC: R RC rehabilitation with caution for Supraspinatus.
--- NOTE | 2022-06-18 16:56 | PT.OTN ---
Current Diagnoses Pain in right shoulder (06/18/22) Pain in left hip (06/18/22) Muscle weakness (generalized) (06/18/22) Physical Therapy Treatment Note PT-OP-A Visit Information Start: 02/20/22 20:05 Freq: Status: Active Protocol: Document 06/18/22 08:14 LRN (Rec: 06/18/22 09:15 LRN [id number]) Out-Patient Physical Therapy Visit Information Visit Information Visit Type Progress Note Visit Note PT only Visit Start Time 08:15 Visit Stop Time 09:05 Total Visit Minutes 50 Visit Number 12 total, . Evaluation Information Evaluation Date 02/22/22 Precautions Precautions Uncontrolled very Low HR (36) > Low HR (60), Multiple Sclerosis, chronic back pain, Neuropathy, Dizziness, SOB, Controlled HBP , hx of A.Fib & Kidney stones. PT-OP-B Current Condition Start: 02/20/22 20:05 Freq: Status: Active Protocol: Document 03/13/22 08:16 LRN (Rec: 03/13/22 17:36 LRN [id number]) Current Condition History of Current Condition Onset Date ~12/04/21 L hip, ~12/18/21 R shoulder. Current Complaints Pain with movement at L hip and R shoulder. L hip worse than R shoulder. History of Current Condition Mid November got out of chair, and heard a pop in L hip, and felt severe pain inferior to the L ASIS. A week later was reaching up to grab something and heard a pop in the posterior R shoulder. Pt indicated pain was posterior to the acromion process. Pt denies bruising. Pt reports with walking there is pain in the L anterior hip on stance phase while shifting onto RLE. 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 Pain is stabbing and sharp in nature. Pt requests focus of therapy on R hip to start. Prior Treatments and Tests X-rays: Unremarkable. 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 Attenuated labrum with signal abnormality . PT-OP-C Subjective Start: 02/20/22 20:05 Freq: Status: Active Protocol: Document 06/18/22 08:14 LRN (Rec: 06/18/22 09:15 LRN [id number]) OP-PT Subjective Patient Comments Patient Comments Last night rolled on the R shoulder wrong causing more pain, rated 6-7/10. No pain unless moving wrong. PT-OP-D Balance Start: 02/20/22 20:05 Freq: Status: Active Protocol: Document 02/22/22 08:16 LRN (Rec: 02/22/22 18:59 LRN [id number]) Balance Tests Single Limb Standing Single Limb- Right 2 secs Single Limb- Left 1-4 secs PT-OP-E Functional Tests Start: 02/20/22 20:05 Freq: Status: Active Protocol: Document 04/26/22 09:02 LRN (Rec: 04/26/22 09:46 LRN [id number]) Functional Tests Apley's Scratch Test Action 1- Left Slightly behind shoulder Action 1- Right lateral L brachium Action 2- Left overhead T2 Action 2- Right C2 Action 3- Left behind back L2 Action 3- Right Behind back L5 PT-OP-G Mobility & Gait Start: 02/20/22 20:05 Freq: Status: Active Protocol: Document 02/22/22 08:16 LRN (Rec: 02/22/22 18:59 LRN [id number]) OP Mobility Evaluation Transfers Sit to Stand Independent with use of L UE's to help push at knee. Bed to Chair Transfers Independent with pain and use of UE's Car Transfers Inpependent with pain, but has much difficulty using a van ( getting in, really hurts; R shoulder hurts shifting car with automatic - lifting lever ; can't lift cup of water due to not able to lift with arm out to the side). OP Gait Assessment Comments Gait Comments Lacks hip shift L, Trunk shifted R with lean to R. PT-OP-H Neuro Start: 02/20/22 20:05 Freq: Status: Active Protocol: Document 02/22/22 08:16 LRN (Rec: 02/22/22 18:59 LRN [id number]) Sensation Evaluation Gross Sensation Gross Sensation WNL PT-OP-J Posture/Palpation/Skin Start: 02/20/22 20:05 Freq: Status: Active Protocol: Document 02/22/22 08:16 LRN (Rec: 02/22/22 18:59 LRN [id number]) Posture Evaluation Position Standing Head/C-Spine Posture Side Bent Right,Forward Head L-Spine Posture Flattened,Shifted Right Shoulder Posture (L) Elevated Scapula Posture (R) Depressed Weight Distribution Weight Shifted Left Comments Posture Comments Sits with RLE extended. Palpation Assessment Location L hip Palpation Location L hip medial to ASIS and at TFL Palpation Findings Tenderness R shoulder Palpation Location R Subscapular attachment at GHJ Palpation Findings Tenderness PT-OP-K Range of Motion Start: 02/20/22 20:05 Freq: Status: Active Protocol: Document 04/26/22 09:02 LRN (Rec: 04/26/22 09:46 LRN [id number]) Shoulder Goniometric Range of Motion Shoulder Right Active Testing Position Standing Flexion 117 Extension 62 Abduction 113 External Rotation at 0 degrees Abduction 50 Left Active Testing Position Standing Flexion 143 Extension 50 Abduction 132 External Rotation at 0 degrees Abduction 65 Hip Goniometric Range of Motion Hip Left Passive Hip ROM WFL No Testing Position Supine Internal Rotation 20 External Rotation 50 Right Passive Hip ROM WFL Yes Testing Position Supine Internal Rotation 25 External Rotation 50 PT-OP-L Special Tests Start: 02/20/22 20:05 Freq: Status: Active Protocol: Document 02/26/22 09:02 LRN (Rec: 02/26/22 12:41 LRN [id number]) Special Tests Lumbar Spine Special Tests Straight Leg Raise Test Results + PSLR - 60 deg's Comments Hamstring tight Hip Special Tests Piriformis Test Results - left Stinchfield Resisted Hip Flexion Test Results + left Scour Test Test Results + left Log Roll Test Test Results + left ISA Test Results + left Comments Painful in anterior hip with positioning Posterior Labral Test Test Results + left Anterior Labral Test Test Results + left PT-OP-M Strength Start: 02/20/22 20:05 Freq: Status: Active Protocol: Document 06/12/22 08:17 LRN (Rec: 06/12/22 09:05 LRN [id number]) Shoulder Strength Shoulder Manual Muscle Testing Right Flexion 4 Good Abduction (C5) 2 Poor External Rotation 3 Fair Internal Rotation 3 Fair Left Flexion 4+ Good+ Adduction 4 Good External Rotation 4+ Good+ Internal Rotation 4+ Good+ PT-OP-Q Treatments Start: 02/20/22 20:05 Freq: Status: Active Protocol: Document 06/18/22 08:14 LRN (Rec: 06/18/22 09:15 LRN [id number]) Therapeutic Exercises Supine Exercises Median n gliding Supine Exercise Name Median n glide w/o tension susan -arm by side/ER, elbow flex/ ext, wrist flx/ex Side bilateral Comments Pt able to perform w/cuing and head in R SB for AAROM Lat Pull Down Supine Exercise Name Lat pull Down Side bilateral Equipment Used L3 TB Reps/Minutes 15x 2 Standing Exercises Scap Depression/Retraction Standing Exercise Name Scap Depr/Retract Side bilateral Equipment Used L2 Reps/Minutes 3' Scapula Depression Standing Exercise Name Scap Depression Side right Equipment Used L2 TB Reps/Minutes 10' Comments Constant cuing to infer border of scap overhead pull down Standing Exercise Name Shdr Ext Side bilateral Resistance L2 Equipment Used Mirror Reps/Minutes 15x2 Comments Much standing, phy & v cuing Shoulder ER Standing Exercise Name Shoulder ER strengthening Equipment Used Lev 2 TB Reps/Minutes 15x 2 Comments cues for slow, controlled eccentric Shoulder IR Standing Exercise Name Shoulder IR strengthening Equipment Used Lev 2 TB Reps/Minutes 30x Comments cues for slow, controlled eccentric PT-OP-R Modalities Start: 02/20/22 20:05 Freq: Status: Active Protocol: Document 06/18/22 08:14 LRN (Rec: 06/18/22 16:39 LRN [id number]) Hot Pack/Cold Pack Treatment Cold Pack Location R shoulder Treatment Duration (minutes) 10 Patient Tolerance Good Comments Pt in reclined position, almost upright to limit dizziness with changes in positioning. PT-OP-T Assessment and Plan Start: 02/20/22 20:05 Freq: Status: Active Protocol: Document 06/18/22 08:14 LRN (Rec: 06/18/22 09:15 LRN [id number]) Physical Therapy Assessment Goals Four Impairment Decreased R shoulder ROM due to pain. Impairment R shoulder pain rated 6/10 at posterior to acromion process with movement. R shoulder AROM (sitting, in deg's): Flex 57, AB 42, ER 50 (0 deg's ER), IR reaching behind back to R PSIS. L shoulder AROM (sitting, in deg's): Flex 132, AB 150, ER 65 (0 deg's ER), IR reaching behind back to L4. Short Term Goal (STG) Improve ability to move the R shoulder with pt able to reach for feet with minimal R shoulder pain/discomfort. 04/26/22: Pt able to reach for feet with R shoulder, but L hip discomfort limits ability to tie shoes. 06/12/22: Tight in shoulder. STG Duration 05/25/22 (06/12/22: MET GOAL) Process Planner Goal (LTG) Improve ability to move the R shoulder with pt able to reach overhead with minimal R shoulder pain/discomfort. 04/26/22: Reaching behind head: C2 Right; T2 Left 06/18/22: Pain when moving arms overhead or wrong is 6-7/ 10. LTG Duration 09/16/22 slow progress: Three Impairment R shoulder pain interrupting sleep at night. Impairment Wakes 2 times per night from R shoulder pain (rated 6/10), primarily when rolling on it. UE QuickDASH score 38.63 (20- 39% impaired) R shoulder strength: Flex 2+/ 5, AB 2/5, ER 4/5, IR 3+/5. L shldr is generally 5/5. Short Term Goal (STG) Improve UE QuickDASH score to 19 or less (1-19% impaired). 04/26/22: Minimal improvement , score 27 (20-39% impaired, score 20-39). 06/18/22: Woke with pain in R shoulder slept on it wrong. STG Duration 08/02/22 progressing 04/26/22 . Process Planner Goal (LTG) Improve R shoulder strength with pt able to sleep longer with occasionally waking during the night, mostly without R shoulder pain. 04/26/22: No change. 06/18/22: Occasional pain when rolling on the R shoulder or if it gets caught under body or behind him, rated 6-7/10. LTG Duration 09/16/22 progressing Two Impairment L hip pain limiting functional movement and gait Impairment Intermittent L hip pain rated 5/10. Pt not able to don/doff socks independently. LEFS score 43/80 (40-59% impaired) Short Term Goal (STG) Pt will be able to walk without L anterior hip pain and improve function per LEFS score 49-62 (20-39% impaired). 04/26/22: No improvement, score 40 (40-59% impaired). 06/18/22: WAlking w/o front L hip pain and can put socks on w/o pain. STG Duration 05/25/22 06/18/22: MET GOAL Nursing Home Goal (LTG) Pt will be able to don/doff his L sock/shoes independently without or minimal L anterior hip pain, or demonstrate improved function per LEFS score greater than 62. 06/12/22: Pt reports being able to don/doff L sock/shoes independently without L anterior hip pain (LEFS not taken) LTG Duration 06/25/22 (06/12/22: MET GOAL) One Impairment Lacks appropriate self care HEP Short Term Goal (STG) Pt will be educated in best posturing for nighttime sleep and getting in/out of car. 03/13/22: Pt educated in best posturing for nighttime sleep for sidelie. STG Duration 08/02/22 partially met 03/13. Process Planner Goal (LTG) Pt will be independent on a self care HEP to promote L hip mobility and strengthing in areas of deficit and L shoulder ROM/rotator cuff & scapular stabilizing exercises . 03/01/22: HEP: Fig 4 & lateral trunk shift stretch to R. 03/09/22: HEP: LE roll in/ out. 03/13/22: HEP: Clamshell & Hip AD strengthening LTG Duration 09/16/22 progressed . Assessment Summary Assessment Pt L hip pain has resolved, pt is now ready to focus his rehabilitation on his R shoulder. He appears to have improved shoulder stability with and is able to sleep with occasional pain, but when he wakes his pain is quite severe. The pt will benefit from continued skilled physical therapy to work towards achieving the above stated goals of his R shoulder . Pt has + ULNTs indicating neural tension in R Median, Ulnar & Radial n. and R shoulder impingement. Not able to assess function per UE QuickDASH due to pt forgetting to complete questionnaire form before leaving. Physical Therapy Plan Frequency and Duration Frequency of Treatment 2x/Week Plan of Care Start Date 06/18/22 Plan of Care End Date 08/02/22 Therapeutic Interventions Therapeutic Interventions Home Exercise Program,Joint Mobilizations,Manual Therapy, Neuromuscular Re-education, Patient/Caregiver Education, Self-Care/Home Management,Soft Tissue Mobilization,Taping, Therapeutic Activities, Therapeutic Exercises Modalities Cold Pack/Ice Massage,Hot Packs,Iontophoresis,Ultrasound Other Therapeutic Interventions Iontophoresis with 4mg/mL Dexamethasone with Sodium Phospate if medically appropriate. Next Visit Focus/Plan Next Note Type Treatment Note Next Visit Plan Pt to complete UE QuickDASH, Add R and L ULNT sliders over tensioner gliding ex's. Try Iontophorersis R shldr. HEP: continue right shoulder/ scap stab ex. (STG #1)-Educate pt in best posturing for getting in/out of car. EX: ROM, and JMT for RC dysfunction. POC: R RC rehabilitation with caution for Supraspinatus.
--- NOTE | 2022-06-18 16:58 | PT.OPPN ---
Current Diagnoses Pain in right shoulder (06/18/22) Pain in left hip (06/18/22) Muscle weakness (generalized) (06/18/22) Physical Therapy Progress Note PT-OP-A Visit Information Start: 02/20/22 20:05 Freq: Status: Active Protocol: Document 06/18/22 08:14 LRN (Rec: 06/18/22 09:15 LRN [id number]) Out-Patient Physical Therapy Visit Information Visit Information Visit Type Progress Note Visit Note PT only Visit Start Time 08:15 Visit Stop Time 09:05 Total Visit Minutes 50 Visit Number 12 total, . Evaluation Information Evaluation Date 02/22/22 Precautions Precautions Uncontrolled very Low HR (36) > Low HR (60), Multiple Sclerosis, chronic back pain, Neuropathy, Dizziness, SOB, Controlled HBP , hx of A.Fib & Kidney stones. PT-OP-B Current Condition Start: 02/20/22 20:05 Freq: Status: Active Protocol: Document 03/13/22 08:16 LRN (Rec: 03/13/22 17:36 LRN [id number]) Current Condition History of Current Condition Onset Date ~12/04/21 L hip, ~12/18/21 R shoulder. Current Complaints Pain with movement at L hip and R shoulder. L hip worse than R shoulder. History of Current Condition Mid November got out of chair, and heard a pop in L hip, and felt severe pain inferior to the L ASIS. A week later was reaching up to grab something and heard a pop in the posterior R shoulder. Pt indicated pain was posterior to the acromion process. Pt denies bruising. Pt reports with walking there is pain in the L anterior hip on stance phase while shifting onto RLE. He can draft roller picker heavy things off the floor with his R shoulder, but has pain with moving the arm away from the body out to the side and fwd ~ 80 deg's. Pain is stabbing and sharp in nature. Pt requests focus of therapy on R hip to start. Prior Treatments and Tests X-rays: Unremarkable. 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 Attenuated labrum with signal abnormality . PT-OP-C Subjective Start: 02/20/22 20:05 Freq: Status: Active Protocol: Document 06/18/22 08:14 LRN (Rec: 06/18/22 09:15 LRN [id number]) OP-PT Subjective Patient Comments Patient Comments Last night rolled on the R shoulder wrong causing more pain, rated 6-7/10. No pain unless moving wrong. PT-OP-D Balance Start: 02/20/22 20:05 Freq: Status: Active Protocol: Document 02/22/22 08:16 LRN (Rec: 02/22/22 18:59 LRN [id number]) Balance Tests Single Limb Standing Single Limb- Right 2 secs Single Limb- Left 1-4 secs PT-OP-E Functional Tests Start: 02/20/22 20:05 Freq: Status: Active Protocol: Document 04/26/22 09:02 LRN (Rec: 04/26/22 09:46 LRN [id number]) Functional Tests Apley's Scratch Test Action 1: The subject is instructed to touch the opposite shoulder with his/her hand. This motion checks Glenohumeral adduction, internal rotation , horizontal adduction and scapular protraction Action 2: The subject is instructed to place his/her arm overhead and reach behind the neck to touch his/her upper back. This motion checks Glenohumeral abduction, external rotation and scapular upward rotation and elevation. Action 3: The subject puts his/her hand on the lower back and reaches upward as far as possible. This motion checks glenohumeral adduction, internal rotation and scapular retraction with downward rotation Action 1- Left Slightly behind shoulder Action 1- Right lateral L brachium Action 2- Left overhead T2 Action 2- Right C2 Action 3- Left behind back L2 Action 3- Right Behind back L5 PT-OP-G Mobility & Gait Start: 02/20/22 20:05 Freq: Status: Active Protocol: Document 02/22/22 08:16 LRN (Rec: 02/22/22 18:59 LRN [id number]) OP Mobility Evaluation Transfers Sit to Stand Independent with use of L UE's to help push at knee. Bed to Chair Transfers Independent with pain and use of UE's Car Transfers Inpependent with pain, but has much difficulty using a van ( getting in, really hurts; R shoulder hurts shifting car with automatic - lifting lever ; can't lift cup of water due to not able to lift with arm out to the side). OP Gait Assessment Comments Gait Comments Lacks hip shift L, Trunk shifted R with lean to R. PT-OP-H Neuro Start: 02/20/22 20:05 Freq: Status: Active Protocol: Document 02/22/22 08:16 LRN (Rec: 02/22/22 18:59 LRN [id number]) Sensation Evaluation Gross Sensation Gross Sensation WNL PT-OP-J Posture/Palpation/Skin Start: 02/20/22 20:05 Freq: Status: Active Protocol: Document 02/22/22 08:16 LRN (Rec: 02/22/22 18:59 LRN [id number]) Posture Evaluation Position Standing Head/C-Spine Posture Side Bent Right,Forward Head L-Spine Posture Flattened,Shifted Right Shoulder Posture (L) Elevated Scapula Posture (R) Depressed Weight Distribution Weight Shifted Left Comments Posture Comments Sits with RLE extended. Palpation Assessment Location L hip Palpation Location L hip medial to ASIS and at TFL Palpation Findings Tenderness R shoulder Palpation Location R Subscapular attachment at GHJ Palpation Findings Tenderness PT-OP-K Range of Motion Start: 02/20/22 20:05 Freq: Status: Active Protocol: Document 04/26/22 09:02 LRN (Rec: 04/26/22 09:46 LRN [id number]) Shoulder Goniometric Range of Motion Shoulder Measured in Degrees Right Active Testing Position Standing Flexion 117 Extension 62 Abduction 113 External Rotation at 0 degrees Abduction 50 Left Active Testing Position Standing Flexion 143 Extension 50 Abduction 132 External Rotation at 0 degrees Abduction 65 Hip Goniometric Range of Motion Hip Measured in Degrees Left Passive Hip ROM WFL No Testing Position Supine Internal Rotation 20 External Rotation 50 Right Passive Hip ROM WFL Yes Testing Position Supine Internal Rotation 25 External Rotation 50 PT-OP-L Special Tests Start: 02/20/22 20:05 Freq: Status: Active Protocol: Document 02/26/22 09:02 LRN (Rec: 02/26/22 12:41 LRN [id number]) Special Tests Lumbar Spine Special Tests Straight Leg Raise Test Results + PSLR - 60 deg's Comments Hamstring tight Hip Special Tests Piriformis Test Results - left Stinchfield Resisted Hip Flexion Test Results + left Scour Test Test Results + left Log Roll Test Test Results + left ISA Test Results + left Comments Painful in anterior hip with positioning Posterior Labral Test Test Results + left Anterior Labral Test Test Results + left PT-OP-M Strength Start: 02/20/22 20:05 Freq: Status: Active Protocol: Document 06/12/22 08:17 LRN (Rec: 06/12/22 09:05 LRN [id number]) Shoulder Strength Shoulder Manual Muscle Testing Right Flexion 4 Good Abduction (C5) 2 Poor External Rotation 3 Fair Internal Rotation 3 Fair Left Flexion 4+ Good+ Adduction 4 Good External Rotation 4+ Good+ Internal Rotation 4+ Good+ PT-OP-T Assessment and Plan Start: 02/20/22 20:05 Freq: Status: Active Protocol: Document 06/18/22 08:14 LRN (Rec: 06/18/22 09:15 LRN [id number]) Physical Therapy Assessment Goals Four Impairment Decreased R shoulder ROM due to pain. Impairment R shoulder pain rated 6/10 at posterior to acromion process with movement. R shoulder AROM (sitting, in deg's): Flex 57, AB 42, ER 50 (0 deg's ER), IR reaching behind back to R PSIS. L shoulder AROM (sitting, in deg's): Flex 132, AB 150, ER 65 (0 deg's ER), IR reaching behind back to L4. Short Term Goal (STG) Improve ability to move the R shoulder with pt able to reach for feet with minimal R shoulder pain/discomfort. 04/26/22: Pt able to reach for feet with R shoulder, but L hip discomfort limits ability to tie shoes. 06/12/22: Tight in shoulder. STG Duration 05/25/22 (06/12/22: MET GOAL) Snf Goal (LTG) Improve ability to move the R shoulder with pt able to reach overhead with minimal R shoulder pain/discomfort. 04/26/22: Reaching behind head: C2 Right; T2 Left 06/18/22: Pain when moving arms overhead or wrong is 6-7/ 10. LTG Duration 09/16/22 slow progress: Three Impairment R shoulder pain interrupting sleep at night. Impairment Wakes 2 times per night from R shoulder pain (rated 6/10), primarily when rolling on it. UE QuickDASH score 38.63 (20- 39% impaired) R shoulder strength: Flex 2+/ 5, AB 2/5, ER 4/5, IR 3+/5. L shldr is generally 5/5. Short Term Goal (STG) Improve UE QuickDASH score to 19 or less (1-19% impaired). 04/26/22: Minimal improvement , score 27 (20-39% impaired, score 20-39). 06/18/22: Woke with pain in R shoulder slept on it wrong. STG Duration 08/02/22 progressing 04/26/22 . Snf Goal (LTG) Improve R shoulder strength with pt able to sleep longer with occasionally waking during the night, mostly without R shoulder pain. 04/26/22: No change. 06/18/22: Occasional pain when rolling on the R shoulder or if it gets caught under body or behind him, rated 6-7/10. LTG Duration 09/16/22 progressing Two Impairment L hip pain limiting functional movement and gait Impairment Intermittent L hip pain rated 5/10. Pt not able to don/doff socks independently. LEFS score 43/80 (40-59% impaired) Short Term Goal (STG) Pt will be able to walk without L anterior hip pain and improve function per LEFS score 49-62 (20-39% impaired). 04/26/22: No improvement, score 40 (40-59% impaired). 06/18/22: WAlking w/o front L hip pain and can put socks on w/o pain. STG Duration 05/25/22 06/18/22: MET GOAL Imaging Technologist Goal (LTG) Pt will be able to don/doff his L sock/shoes independently without or minimal L anterior hip pain, or demonstrate improved function per LEFS score greater than 62. 06/12/22: Pt reports being able to don/doff L sock/shoes independently without L anterior hip pain (LEFS not taken) LTG Duration 06/25/22 (06/12/22: MET GOAL) One Impairment Lacks appropriate self care HEP Short Term Goal (STG) Pt will be educated in best posturing for nighttime sleep and getting in/out of car. 03/13/22: Pt educated in best posturing for nighttime sleep for sidelie. STG Duration 08/02/22 partially met 03/13. Snf Goal (LTG) Pt will be independent on a self care HEP to promote L hip mobility and strengthing in areas of deficit and L shoulder ROM/rotator cuff & scapular stabilizing exercises . 03/01/22: HEP: Fig 4 & lateral trunk shift stretch to R. 03/09/22: HEP: LE roll in/ out. 03/13/22: HEP: Clamshell & Hip AD strengthening LTG Duration 09/16/22 progressed . Assessment Summary Assessment Pt L hip pain has resolved, pt is now ready to focus his rehabilitation on his R shoulder. He appears to have improved shoulder stability with and is able to sleep with occasional pain, but when he wakes his pain is quite severe. The pt will benefit from continued skilled physical therapy to work towards achieving the above stated goals of his R shoulder . Pt has + ULNTs indicating neural tension in R Median, Ulnar & Radial n. and R shoulder impingement. Not able to assess function per UE QuickDASH due to pt forgetting to complete questionnaire form before leaving. Physical Therapy Plan Frequency and Duration Frequency of Treatment 2x/Week Plan of Care Start Date 06/18/22 Plan of Care End Date 09/16/22 Therapeutic Interventions Therapeutic Interventions Home Exercise Program,Joint Mobilizations,Manual Therapy, Neuromuscular Re-education, Patient/Caregiver Education, Self-Care/Home Management,Soft Tissue Mobilization,Taping, Therapeutic Activities, Therapeutic Exercises Modalities Cold Pack/Ice Massage,Hot Packs,Iontophoresis,Ultrasound Other Therapeutic Interventions Iontophoresis with 4mg/mL Dexamethasone with Sodium Phospate if medically appropriate. Next Visit Focus/Plan Next Note Type Treatment Note Next Visit Plan Pt to complete UE QuickDASH, Add R and L ULNT sliders over tensioner gliding ex's. Try Iontophorersis R shldr. HEP: continue right shoulder/ scap stab ex. (STG #1)-Educate pt in best posturing for getting in/out of car. EX: ROM, and JMT for RC dysfunction. POC: R RC rehabilitation with caution for Supraspinatus.
--- NOTE | 2022-06-25 19:17 | PT.OTN ---
Current Diagnoses Pain in right shoulder (06/25/22) Pain in left hip (06/25/22) Muscle weakness (generalized) (06/25/22) Physical Therapy Treatment Note PT-OP-A Visit Information Start: 02/20/22 20:05 Freq: Status: Active Protocol: Document 06/25/22 08:18 LRN (Rec: 06/25/22 09:00 LRN [id number]) Out-Patient Physical Therapy Visit Information Visit Information Visit Type Treatment Note Visit Start Time 08:18 Visit Stop Time 08:56 Total Visit Minutes 38 Visit Number 13 total, . Evaluation Information Evaluation Date 02/22/22 Precautions Precautions Uncontrolled very Low HR (36) > Low HR (60), Multiple Sclerosis, chronic back pain, Neuropathy, Dizziness, SOB, Controlled HBP , hx of A.Fib & Kidney stones. PT-OP-B Current Condition Start: 02/20/22 20:05 Freq: Status: Active Protocol: Document 03/13/22 08:16 LRN (Rec: 03/13/22 17:36 LRN [id number]) Current Condition History of Current Condition Onset Date ~12/04/21 L hip, ~12/18/21 R shoulder. Current Complaints Pain with movement at L hip and R shoulder. L hip worse than R shoulder. History of Current Condition Mid November got out of chair, and heard a pop in L hip, and felt severe pain inferior to the L ASIS. A week later was reaching up to grab something and heard a pop in the posterior R shoulder. Pt indicated pain was posterior to the acromion process. Pt denies bruising. Pt reports with walking there is pain in the L anterior hip on stance phase while shifting onto RLE. 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 Pain is stabbing and sharp in nature. Pt requests focus of therapy on R hip to start. Prior Treatments and Tests X-rays: Unremarkable. 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 Attenuated labrum with signal abnormality . PT-OP-C Subjective Start: 02/20/22 20:05 Freq: Status: Active Protocol: Document 06/25/22 08:18 LRN (Rec: 06/25/22 09:00 LRN [id number]) OP-PT Subjective Patient Comments Patient Comments States he is sore because his had him doing things at home, mostly his hip is sore. Patient Questionnaires Quick Dash- Upper Extremity Quick Dash UE Score 34.09 Quick Dash UE Impairment 20 to 39% Impaired (Score 20- 39) PT-OP-D Balance Start: 02/20/22 20:05 Freq: Status: Active Protocol: Document 02/22/22 08:16 LRN (Rec: 02/22/22 18:59 LRN [id number]) Balance Tests Single Limb Standing Single Limb- Right 2 secs Single Limb- Left 1-4 secs PT-OP-E Functional Tests Start: 02/20/22 20:05 Freq: Status: Active Protocol: Document 04/26/22 09:02 LRN (Rec: 04/26/22 09:46 LRN [id number]) Functional Tests Apley's Scratch Test Action 1- Left Slightly behind shoulder Action 1- Right lateral L brachium Action 2- Left overhead T2 Action 2- Right C2 Action 3- Left behind back L2 Action 3- Right Behind back L5 PT-OP-G Mobility & Gait Start: 02/20/22 20:05 Freq: Status: Active Protocol: Document 02/22/22 08:16 LRN (Rec: 02/22/22 18:59 LRN [id number]) OP Mobility Evaluation Transfers Sit to Stand Independent with use of L UE's to help push at knee. Bed to Chair Transfers Independent with pain and use of UE's Car Transfers Inpependent with pain, but has much difficulty using a van ( getting in, really hurts; R shoulder hurts shifting car with automatic - lifting lever ; can't lift cup of water due to not able to lift with arm out to the side). OP Gait Assessment Comments Gait Comments Lacks hip shift L, Trunk shifted R with lean to R. PT-OP-H Neuro Start: 02/20/22 20:05 Freq: Status: Active Protocol: Document 02/22/22 08:16 LRN (Rec: 02/22/22 18:59 LRN [id number]) Sensation Evaluation Gross Sensation Gross Sensation WNL PT-OP-J Posture/Palpation/Skin Start: 02/20/22 20:05 Freq: Status: Active Protocol: Document 02/22/22 08:16 LRN (Rec: 02/22/22 18:59 LRN [id number]) Posture Evaluation Position Standing Head/C-Spine Posture Side Bent Right,Forward Head L-Spine Posture Flattened,Shifted Right Shoulder Posture (L) Elevated Scapula Posture (R) Depressed Weight Distribution Weight Shifted Left Comments Posture Comments Sits with RLE extended. Palpation Assessment Location L hip Palpation Location L hip medial to ASIS and at TFL Palpation Findings Tenderness R shoulder Palpation Location R Subscapular attachment at GHJ Palpation Findings Tenderness PT-OP-K Range of Motion Start: 02/20/22 20:05 Freq: Status: Active Protocol: Document 04/26/22 09:02 LRN (Rec: 04/26/22 09:46 LRN [id number]) Shoulder Goniometric Range of Motion Shoulder Right Active Testing Position Standing Flexion 117 Extension 62 Abduction 113 External Rotation at 0 degrees Abduction 50 Left Active Testing Position Standing Flexion 143 Extension 50 Abduction 132 External Rotation at 0 degrees Abduction 65 Hip Goniometric Range of Motion Hip Left Passive Hip ROM WFL No Testing Position Supine Internal Rotation 20 External Rotation 50 Right Passive Hip ROM WFL Yes Testing Position Supine Internal Rotation 25 External Rotation 50 PT-OP-L Special Tests Start: 02/20/22 20:05 Freq: Status: Active Protocol: Document 02/26/22 09:02 LRArielle (Rec: 02/26/22 12:41 LR [id number]) Special Tests Lumbar Spine Special Tests Straight Leg Raise Test Results + PSLR - 60 deg's Comments Hamstring tight Hip Special Tests Piriformis Test Results - left Stinchfield Resisted Hip Flexion Test Results + left Scour Test Test Results + left Log Roll Test Test Results + left ISA Test Results + left Comments Painful in anterior hip with positioning Posterior Labral Test Test Results + left Anterior Labral Test Test Results + left PT-OP-M Strength Start: 02/20/22 20:05 Freq: Status: Active Protocol: Document 06/12/22 08:17 LRN (Rec: 06/12/22 09:05 LRN [id number]) Shoulder Strength Shoulder Manual Muscle Testing Right Flexion 4 Good Abduction (C5) 2 Poor External Rotation 3 Fair Internal Rotation 3 Fair Left Flexion 4+ Good+ Adduction 4 Good External Rotation 4+ Good+ Internal Rotation 4+ Good+ PT-OP-Q Treatments Start: 02/20/22 20:05 Freq: Status: Active Protocol: Document 06/25/22 08:18 LRN (Rec: 06/25/22 09:00 LRN [id number]) Cardio Equipment Upper Body Ergometer (UBE) Duration (Minutes) 4 RPM 70 Seat Position 14 Height 2.5 Therapeutic Exercises Supine Exercises Median n gliding Supine Exercise Name Median n glide w/o tension susan -arm by side/ER, elbow flex/ ext, wrist flx/ex Side right Comments Pt phy & v cuing for AAROM , head in R SB for AAROM serratus punch Supine Exercise Name Punch to ceiling holding dowel Equipment Used Cane Reps/Minutes 3 x Comments stopped due to pt pain & c Lat Pull Down Supine Exercise Name Lat pull Down Side bilateral Equipment Used L3 TB Reps/Minutes 15x 2 Standing Exercises Wall lean to R Standing Exercise Name Wall lean to R. Side right Reps/Minutes x3 Comments Pt would stand on RLE > LLE afterwards each time to cause body to elevate L Scap Depression/Retraction Standing Exercise Name Scap Depr/Retract Side bilateral Equipment Used L2 Reps/Minutes 6' Comments Constant cuing to get L side to retract and down then both Scap Retraction Standing Exercise Name Scap Retraction Side bilateral Equipment Used wall - extra shove Reps/Minutes 15x Scapula Depression Standing Exercise Name Scap Depression Side bilateral Equipment Used L1 TB Reps/Minutes 15x 2 L, 15x R - stopped due pain Comments Constant cuing to infer border of scap Shoulder ER Standing Exercise Name Shoulder ER strengthening Equipment Used Lev 2 TB Reps/Minutes 15x 2 Comments cues for slow, controlled eccentric PT-OP-R Modalities Start: 02/20/22 20:05 Freq: Status: Active Protocol: Document 06/18/22 08:14 LRN (Rec: 06/18/22 16:39 LRN [id number]) Hot Pack/Cold Pack Treatment Cold Pack Location R shoulder Treatment Duration (minutes) 10 Patient Tolerance Good Comments Pt in reclined position, almost upright to limit dizziness with changes in positioning. PT-OP-T Assessment and Plan Start: 02/20/22 20:05 Freq: Status: Active Protocol: Document 06/25/22 08:18 LRN (Rec: 06/25/22 09:00 LRN [id number]) Physical Therapy Assessment Goals Four Impairment Decreased R shoulder ROM due to pain. Impairment R shoulder pain rated 6/10 at posterior to acromion process with movement. R shoulder AROM (sitting, in deg's): Flex 57, AB 42, ER 50 (0 deg's ER), IR reaching behind back to R PSIS. L shoulder AROM (sitting, in deg's): Flex 132, AB 150, ER 65 (0 deg's ER), IR reaching behind back to L4. Short Term Goal (STG) Improve ability to move the R shoulder with pt able to reach for feet with minimal R shoulder pain/discomfort. 04/26/22: Pt able to reach for feet with R shoulder, but L hip discomfort limits ability to tie shoes. 06/12/22: Tight in shoulder. STG Duration 05/25/22 (06/12/22: MET GOAL) Longterm Goal (LTG) Improve ability to move the R shoulder with pt able to reach overhead with minimal R shoulder pain/discomfort. 04/26/22: Reaching behind head: C2 Right; T2 Left 06/18/22: Pain when moving arms overhead or wrong is 6-7/ 10. LTG Duration 09/16/22 slow progress: Three Impairment R shoulder pain interrupting sleep at night. Impairment Wakes 2 times per night from R shoulder pain (rated 6/10), primarily when rolling on it. UE QuickDASH score 38.63 (20- 39% impaired) R shoulder strength: Flex 2+/ 5, AB 2/5, ER 4/5, IR 3+/5. L shldr is generally 5/5. Short Term Goal (STG) Improve UE QuickDASH score to 19 or less (1-19% impaired). 04/26/22: Minimal improvement , score 27 (20-39% impaired, score 20-39). 06/18/22: Woke with pain in R shoulder slept on it wrong. STG Duration 08/02/22 progressing 04/26/22 . Longterm Goal (LTG) Improve R shoulder strength with pt able to sleep longer with occasionally waking during the night, mostly without R shoulder pain. 04/26/22: No change. 06/18/22: Occasional pain when rolling on the R shoulder or if it gets caught under body or behind him, rated 6-7/10. LTG Duration 09/16/22 progressing Two Impairment L hip pain limiting functional movement and gait Impairment Intermittent L hip pain rated 5/10. Pt not able to don/doff socks independently. LEFS score 43/80 (40-59% impaired) Short Term Goal (STG) Pt will be able to walk without L anterior hip pain and improve function per LEFS score 49-62 (20-39% impaired). 04/26/22: No improvement, score 40 (40-59% impaired). 06/18/22: WAlking w/o front L hip pain and can put socks on w/o pain. STG Duration 05/25/22 06/18/22: MET GOAL [employer] Goal (LTG) Pt will be able to don/doff his L sock/shoes independently without or minimal L anterior hip pain, or demonstrate improved function per LEFS score greater than 62. 06/12/22: Pt reports being able to don/doff L sock/shoes independently without L anterior hip pain (LEFS not taken) LTG Duration 06/25/22 (06/12/22: MET GOAL) One Impairment Lacks appropriate self care HEP Short Term Goal (STG) Pt will be educated in best posturing for nighttime sleep and getting in/out of car. 03/13/22: Pt educated in best posturing for nighttime sleep for sidelie. STG Duration 08/02/22 partially met 03/13. Longterm Goal (LTG) Pt will be independent on a self care HEP to promote L hip mobility and strengthing in areas of deficit and L shoulder ROM/rotator cuff & scapular stabilizing exercises . 03/01/22: HEP: Fig 4 & lateral trunk shift stretch to R. 03/09/22: HEP: LE roll in/ out. 03/13/22: HEP: Clamshell & Hip AD strengthening LTG Duration 09/16/22 progressed . Assessment Summary Assessment Pt trunk in R tilt, able to correct with lean to R against wall, except if pt stands immediately R>L WBing after stretch, his tilt returns, otherwise posture corrects immediate after stretch. Pt R shoulder popped with scap protract in sup after standing ex's, but pt notes it happens all the time. UE Quickdash score is 34 (29-39% impaired, score 20-39). Physical Therapy Plan Frequency and Duration Frequency of Treatment 2x/Week Plan of Care Start Date 06/18/22 Plan of Care End Date 09/16/22 Next Visit Focus/Plan Next Note Type Treatment Note Next Visit Plan Cont R and L ULNT sliders over tensioner gliding ex's. Try Iontophorersis R shldr. HEP: continue right shoulder/ scap stab ex. (STG #1)-Educate pt in best posturing for getting in/out of car. EX: ROM, and JMT for RC dysfunction. POC: R RC rehabilitation with caution for Supraspinatus.
--- NOTE | 2022-07-23 14:03 | PT.OTN ---
Current Diagnoses Pain in right shoulder (07/23/22) Pain in left hip (07/23/22) Muscle weakness (generalized) (07/23/22) Physical Therapy Treatment Note PT-OP-A Visit Information Start: 02/20/22 20:05 Freq: Status: Active Protocol: Document 07/23/22 08:20 LRN (Rec: 07/23/22 09:04 LRN [id number]) Out-Patient Physical Therapy Visit Information Visit Information Visit Type Treatment Note Visit Start Time 08:20 Visit Stop Time 09:00 Total Visit Minutes 38 Visit Number 14 total, PT-OP-B Current Condition Start: 02/20/22 20:05 Freq: Status: Active Protocol: Document 03/13/22 08:16 LRN (Rec: 03/13/22 17:36 LRN [id number]) Current Condition History of Current Condition Onset Date ~12/04/21 L hip, ~12/18/21 R shoulder. Current Complaints Pain with movement at L hip and R shoulder. L hip worse than R shoulder. History of Current Condition Mid November got out of chair, and heard a pop in L hip, and felt severe pain inferior to the L ASIS. A week later was reaching up to grab something and heard a pop in the posterior R shoulder. Pt indicated pain was posterior to the acromion process. Pt denies bruising. Pt reports with walking there is pain in the L anterior hip on stance phase while shifting onto RLE. He can pecan picker heavy things off the floor with his R shoulder, but has pain with moving the arm away from the body out to the side and fwd ~ 80 deg's. Pain is stabbing and sharp in nature. Pt requests focus of therapy on R hip to start. Prior Treatments and Tests X-rays: Unremarkable. 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 Attenuated labrum with signal abnormality . PT-OP-C Subjective Start: 02/20/22 20:05 Freq: Status: Active Protocol: Document 07/23/22 08:20 LRN (Rec: 07/23/22 09:04 LRN [id number]) OP-PT Subjective Patient Comments Patient Comments R Shoulder is better, doesn't hurt. States he has pain at nighttime, his R shoulder is on top when lying on his side. PT-OP-D Balance Start: 02/20/22 20:05 Freq: Status: Active Protocol: Document 02/22/22 08:16 LRN (Rec: 02/22/22 18:59 LRN [id number]) Balance Tests Single Limb Standing Single Limb- Right 2 secs Single Limb- Left 1-4 secs PT-OP-E Functional Tests Start: 02/20/22 20:05 Freq: Status: Active Protocol: Document 04/26/22 09:02 LRN (Rec: 04/26/22 09:46 LRN [id number]) Functional Tests Apley's Scratch Test Action 1- Left Slightly behind shoulder Action 1- Right lateral L brachium Action 2- Left overhead T2 Action 2- Right C2 Action 3- Left behind back L2 Action 3- Right Behind back L5 PT-OP-G Mobility & Gait Start: 02/20/22 20:05 Freq: Status: Active Protocol: Document 02/22/22 08:16 LRN (Rec: 02/22/22 18:59 LRN [id number]) OP Mobility Evaluation Transfers Sit to Stand Independent with use of L UE's to help push at knee. Bed to Chair Transfers Independent with pain and use of UE's Car Transfers Inpependent with pain, but has much difficulty using a van ( getting in, really hurts; R shoulder hurts shifting car with automatic - lifting lever ; can't lift cup of water due to not able to lift with arm out to the side). OP Gait Assessment Comments Gait Comments Lacks hip shift L, Trunk shifted R with lean to R. PT-OP-H Neuro Start: 02/20/22 20:05 Freq: Status: Active Protocol: Document 02/22/22 08:16 LRN (Rec: 02/22/22 18:59 LRN [id number]) Sensation Evaluation Gross Sensation Gross Sensation WNL PT-OP-J Posture/Palpation/Skin Start: 02/20/22 20:05 Freq: Status: Active Protocol: Document 02/22/22 08:16 LRN (Rec: 02/22/22 18:59 LRN [id number]) Posture Evaluation Position Standing Head/C-Spine Posture Side Bent Right,Forward Head L-Spine Posture Flattened,Shifted Right Shoulder Posture (L) Elevated Scapula Posture (R) Depressed Weight Distribution Weight Shifted Left Comments Posture Comments Sits with RLE extended. Palpation Assessment Location L hip Palpation Location L hip medial to ASIS and at TFL Palpation Findings Tenderness R shoulder Palpation Location R Subscapular attachment at GHJ Palpation Findings Tenderness PT-OP-K Range of Motion Start: 02/20/22 20:05 Freq: Status: Active Protocol: Document 04/26/22 09:02 LRN (Rec: 04/26/22 09:46 LRN [id number]) Shoulder Goniometric Range of Motion Shoulder Right Active Testing Position Standing Flexion 117 Extension 62 Abduction 113 External Rotation at 0 degrees Abduction 50 Left Active Testing Position Standing Flexion 143 Extension 50 Abduction 132 External Rotation at 0 degrees Abduction 65 Hip Goniometric Range of Motion Hip Left Passive Hip ROM WFL No Testing Position Supine Internal Rotation 20 External Rotation 50 Right Passive Hip ROM WFL Yes Testing Position Supine Internal Rotation 25 External Rotation 50 PT-OP-L Special Tests Start: 02/20/22 20:05 Freq: Status: Active Protocol: Document 02/26/22 09:02 LRN (Rec: 02/26/22 12:41 LRN [id number]) Special Tests Lumbar Spine Special Tests Straight Leg Raise Test Results + PSLR - 60 deg's Comments Hamstring tight Hip Special Tests Piriformis Test Results - left Stinchfield Resisted Hip Flexion Test Results + left Scour Test Test Results + left Log Roll Test Test Results + left ISA Test Results + left Comments Painful in anterior hip with positioning Posterior Labral Test Test Results + left Anterior Labral Test Test Results + left PT-OP-M Strength Start: 02/20/22 20:05 Freq: Status: Active Protocol: Document 06/12/22 08:17 LRN (Rec: 06/12/22 09:05 LRN [id number]) Shoulder Strength Shoulder Manual Muscle Testing Right Flexion 4 Good Abduction (C5) 2 Poor External Rotation 3 Fair Internal Rotation 3 Fair Left Flexion 4+ Good+ Adduction 4 Good External Rotation 4+ Good+ Internal Rotation 4+ Good+ PT-OP-Q Treatments Start: 02/20/22 20:05 Freq: Status: Active Protocol: Document 07/23/22 08:20 LRN (Rec: 07/23/22 09:04 LRN [id number]) Cardio Equipment Upper Body Ergometer (UBE) Duration (Minutes) 4 RPM 70 Seat Position 14 Height 3 Therapeutic Exercises Supine Exercises Ulnar n glides Supine Exercise Name Palm over ear (forarm neut/ pron retract elbow: head neutral>L rot>neutral Side right Reps/Minutes 5x each, 2 sets. Median n gliding Supine Exercise Name Median n glide w/o tension susan -arm by side/ER, elbow flex/ ext, wrist flx/ex serratus punch Supine Exercise Name Punch to ceiling holding dowel and w/o dowel Side bilateral Equipment Used Cane Reps/Minutes 10x Comments No pain Lat Pull Down Supine Exercise Name Lat pull Down Side bilateral Equipment Used L3 TB Reps/Minutes 15x 2 Chest press Supine Exercise Name Chest press (arms 90 deg's AB) Side bilateral Reps/Minutes 15x 2 Sitting Exercises L Ulnar n. glide Sitting Exercise Name Towel sliders Side right Reps/Minutes 3' Nerve gliding Sitting Exercise Name Wrist/finger ext - arm by side and out 30 deg's Reps/Minutes 10 pulleys Sitting Exercise Name flexion and scaption Reps/Minutes 10x ea Comments cues for painfree ROM Standing Exercises Wall lean to R Standing Exercise Name Wall lean to R. Side right Reps/Minutes x3 Comments Pt would stand on RLE > LLE afterwards each time to cause body to elevate L Scap Depression/Retraction Standing Exercise Name Lat pull down: Scap Depr/ Retract Side bilateral Equipment Used L2 Reps/Minutes 6' Comments Constant cuing to get L side to retract and down then both Scap Retraction Standing Exercise Name Scap Retraction Side bilateral Equipment Used wall - extra shove Reps/Minutes 15x Scapula Depression Standing Exercise Name Scap Depression Side bilateral Equipment Used L1 TB Reps/Minutes 15x 2 L, 15x R - stopped due pain Comments Constant cuing to infer border of scap Shoulder ER Standing Exercise Name Shoulder ER strengthening Equipment Used Lev 2 TB Reps/Minutes 15x 2 Comments cues for slow, controlled eccentric Shoulder IR Standing Exercise Name Shoulder IR strengthening Equipment Used Lev 2 TB Reps/Minutes 30x Comments cues for slow, controlled eccentric Self-Care/Home Management Treatment Education Other Education Educated pt in best posturing for getting in/out of car. PT-OP-R Modalities Start: 02/20/22 20:05 Freq: Status: Active Protocol: Document 06/18/22 08:14 LRN (Rec: 06/18/22 16:39 LRN [id number]) Hot Pack/Cold Pack Treatment Cold Pack Location R shoulder Treatment Duration (minutes) 10 Patient Tolerance Good Comments Pt in reclined position, almost upright to limit dizziness with changes in positioning. PT-OP-T Assessment and Plan Start: 02/20/22 20:05 Freq: Status: Active Protocol: Document 07/23/22 08:20 LRN (Rec: 07/23/22 09:04 LRN [id number]) Physical Therapy Assessment Goals Four Impairment Decreased R shoulder ROM due to pain. Impairment R shoulder pain rated 6/10 at posterior to acromion process with movement. R shoulder AROM (sitting, in deg's): Flex 57, AB 42, ER 50 (0 deg's ER), IR reaching behind back to R PSIS. L shoulder AROM (sitting, in deg's): Flex 132, AB 150, ER 65 (0 deg's ER), IR reaching behind back to L4. Short Term Goal (STG) Improve ability to move the R shoulder with pt able to reach for feet with minimal R shoulder pain/discomfort. 04/26/22: Pt able to reach for feet with R shoulder, but L hip discomfort limits ability to tie shoes. 06/12/22: Tight in shoulder. STG Duration 05/25/22 (06/12/22: MET GOAL) Longterm Goal (LTG) Improve ability to move the R shoulder with pt able to reach overhead with minimal R shoulder pain/discomfort. 04/26/22: Reaching behind head: C2 Right; T2 Left 06/18/22: Pain when moving arms overhead or wrong is 6-7/ 10. LTG Duration 09/16/22 slow progress: Three Impairment R shoulder pain interrupting sleep at night. Impairment Wakes 2 times per night from R shoulder pain (rated 6/10), primarily when rolling on it. UE QuickDASH score 38.63 (20- 39% impaired) R shoulder strength: Flex 2+/ 5, AB 2/5, ER 4/5, IR 3+/5. L shldr is generally 5/5. Short Term Goal (STG) Improve UE QuickDASH score to 19 or less (1-19% impaired). 04/26/22: Minimal improvement , score 27 (20-39% impaired, score 20-39). 06/18/22: Woke with pain in R shoulder slept on it wrong. STG Duration 08/02/22 progressing 04/26/22 . Parking Enforcement Specialist Goal (LTG) Improve R shoulder strength with pt able to sleep longer with occasionally waking during the night, mostly without R shoulder pain. 04/26/22: No change. 06/18/22: Occasional pain when rolling on the R shoulder or if it gets caught under body or behind him, rated 6-7/10. LTG Duration 09/16/22 progressing Two Impairment L hip pain limiting functional movement and gait Impairment Intermittent L hip pain rated 5/10. Pt not able to don/doff socks independently. LEFS score 43/80 (40-59% impaired) Short Term Goal (STG) Pt will be able to walk without L anterior hip pain and improve function per LEFS score 49-62 (20-39% impaired). 04/26/22: No improvement, score 40 (40-59% impaired). 06/18/22: WAlking w/o front L hip pain and can put socks on w/o pain. STG Duration 05/25/22 06/18/22: MET GOAL Parking Enforcement Specialist Goal (LTG) Pt will be able to don/doff his L sock/shoes independently without or minimal L anterior hip pain, or demonstrate improved function per LEFS score greater than 62. 06/12/22: Pt reports being able to don/doff L sock/shoes independently without L anterior hip pain (LEFS not taken) LTG Duration 06/25/22 (06/12/22: MET GOAL) One Impairment Lacks appropriate self care HEP Short Term Goal (STG) Pt will be educated in best posturing for nighttime sleep and getting in/out of car. 03/13/22: Pt educated in best posturing for nighttime sleep for sidelie. 07/23/22: Educated pt in best posturing for getting in/out of car. STG Duration 08/02/22 (07/23/22: MET GOAL) Longterm Goal (LTG) Pt will be independent on a self care HEP to promote L hip mobility and strengthing in areas of deficit and L shoulder ROM/rotator cuff & scapular stabilizing exercises . 03/01/22: HEP: Fig 4 & lateral trunk shift stretch to R. 03/09/22: HEP: LE roll in/ out. 03/13/22: HEP: Clamshell & Hip AD strengthening LTG Duration 09/16/22 progressed . Assessment Summary Assessment Pt has mainly restriction with shoulder IR, reaching behind back (ulnar n. stretch). Pain reports some discomfort with reaching overhead. Pain with return form fwd punch position in supine with cane/1 #. Iontophoresis not needed due to pain mostly resolved. Physical Therapy Plan Frequency and Duration Frequency of Treatment 2x/Week Plan of Care Start Date 06/18/22 Plan of Care End Date 09/16/22 Next Visit Focus/Plan Next Note Type Treatment Note Next Visit Plan Cont R and L ULNT sliders over tensioner gliding ex's (try butterfly & ulnar n side walks ). HEP: continue right shoulder/ scap stab ex. Assess progress to goals 3 & 4 . EX: ROM, and JMT for RC dysfunction. POC: R RC rehabilitation with caution for Supraspinatus.
--- NOTE | 2022-07-30 10:21 | PT.OTN ---
Current Diagnoses Pain in right shoulder (07/30/22) Pain in left hip (07/30/22) Muscle weakness (generalized) (07/30/22) Physical Therapy Treatment Note PT-OP-A Visit Information Start: 02/20/22 20:05 Freq: Status: Active Protocol: Document 07/30/22 08:18 LRN (Rec: 07/30/22 09:03 LRN [id number]) Out-Patient Physical Therapy Visit Information Visit Information Visit Type Treatment Note Visit Start Time 08:18 Visit Stop Time 09:02 Total Visit Minutes 44 Visit Number 15 total, Evaluation Information Evaluation Date 02/22/22 Precautions Precautions Uncontrolled very Low HR (36) > Low HR (60), Multiple Sclerosis, chronic back pain, Neuropathy, Dizziness, SOB, Controlled HBP , hx of A.Fib & Kidney stones. PT-OP-B Current Condition Start: 02/20/22 20:05 Freq: Status: Active Protocol: Document 03/13/22 08:16 LRN (Rec: 03/13/22 17:36 LRN [id number]) Current Condition History of Current Condition Onset Date ~12/04/21 L hip, ~12/18/21 R shoulder. Current Complaints Pain with movement at L hip and R shoulder. L hip worse than R shoulder. History of Current Condition Mid November got out of chair, and heard a pop in L hip, and felt severe pain inferior to the L ASIS. A week later was reaching up to grab something and heard a pop in the posterior R shoulder. Pt indicated pain was posterior to the acromion process. Pt denies bruising. Pt reports with walking there is pain in the L anterior hip on stance phase while shifting onto RLE. He can pickle sorter heavy things off the floor with his R shoulder, but has pain with moving the arm away from the body out to the side and fwd ~ 80 deg's. Pain is stabbing and sharp in nature. Pt requests focus of therapy on R hip to start. Prior Treatments and Tests X-rays: Unremarkable. 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 Attenuated labrum with signal abnormality . PT-OP-C Subjective Start: 02/20/22 20:05 Freq: Status: Active Protocol: Document 07/30/22 08:18 LRN (Rec: 07/30/22 09:03 LRN [id number]) OP-PT Subjective Patient Comments Patient Comments Toothache. R shoulder doesn't have as much pain and can do more reaching up and around Less pain tucking in shirt, pain is 3/10 was a 6/10. Patient Questionnaires Quick Dash- Upper Extremity Quick Dash UE Score 9.09 Quick Dash UE Impairment 1 to 19% Impaired (Score 1-19) PT-OP-D Balance Start: 02/20/22 20:05 Freq: Status: Active Protocol: Document 02/22/22 08:16 LRN (Rec: 02/22/22 18:59 LRN [id number]) Balance Tests Single Limb Standing Single Limb- Right 2 secs Single Limb- Left 1-4 secs PT-OP-E Functional Tests Start: 02/20/22 20:05 Freq: Status: Active Protocol: Document 04/26/22 09:02 LRN (Rec: 04/26/22 09:46 LRN [id number]) Functional Tests Apley's Scratch Test Action 1- Left Slightly behind shoulder Action 1- Right lateral L brachium Action 2- Left overhead T2 Action 2- Right C2 Action 3- Left behind back L2 Action 3- Right Behind back L5 PT-OP-G Mobility & Gait Start: 02/20/22 20:05 Freq: Status: Active Protocol: Document 02/22/22 08:16 LRN (Rec: 02/22/22 18:59 LRN [id number]) OP Mobility Evaluation Transfers Sit to Stand Independent with use of L UE's to help push at knee. Bed to Chair Transfers Independent with pain and use of UE's Car Transfers Inpependent with pain, but has much difficulty using a van ( getting in, really hurts; R shoulder hurts shifting car with automatic - lifting lever ; can't lift cup of water due to not able to lift with arm out to the side). OP Gait Assessment Comments Gait Comments Lacks hip shift L, Trunk shifted R with lean to R. PT-OP-H Neuro Start: 02/20/22 20:05 Freq: Status: Active Protocol: Document 02/22/22 08:16 LRN (Rec: 02/22/22 18:59 LRN [id number]) Sensation Evaluation Gross Sensation Gross Sensation WNL PT-OP-J Posture/Palpation/Skin Start: 02/20/22 20:05 Freq: Status: Active Protocol: Document 02/22/22 08:16 LRN (Rec: 02/22/22 18:59 LRN [id number]) Posture Evaluation Position Standing Head/C-Spine Posture Side Bent Right,Forward Head L-Spine Posture Flattened,Shifted Right Shoulder Posture (L) Elevated Scapula Posture (R) Depressed Weight Distribution Weight Shifted Left Comments Posture Comments Sits with RLE extended. Palpation Assessment Location L hip Palpation Location L hip medial to ASIS and at TFL Palpation Findings Tenderness R shoulder Palpation Location R Subscapular attachment at GHJ Palpation Findings Tenderness PT-OP-K Range of Motion Start: 02/20/22 20:05 Freq: Status: Active Protocol: Document 04/26/22 09:02 LRN (Rec: 04/26/22 09:46 LRN [id number]) Shoulder Goniometric Range of Motion Shoulder Right Active Testing Position Standing Flexion 117 Extension 62 Abduction 113 External Rotation at 0 degrees Abduction 50 Left Active Testing Position Standing Flexion 143 Extension 50 Abduction 132 External Rotation at 0 degrees Abduction 65 Hip Goniometric Range of Motion Hip Left Passive Hip ROM WFL No Testing Position Supine Internal Rotation 20 External Rotation 50 Right Passive Hip ROM WFL Yes Testing Position Supine Internal Rotation 25 External Rotation 50 PT-OP-L Special Tests Start: 02/20/22 20:05 Freq: Status: Active Protocol: Document 02/26/22 09:02 LRN (Rec: 02/26/22 12:41 LRN [id number]) Special Tests Lumbar Spine Special Tests Straight Leg Raise Test Results + PSLR - 60 deg's Comments Hamstring tight Hip Special Tests Piriformis Test Results - left Stinchfield Resisted Hip Flexion Test Results + left Scour Test Test Results + left Log Roll Test Test Results + left IAS Test Results + left Comments Painful in anterior hip with positioning Posterior Labral Test Test Results + left Anterior Labral Test Test Results + left PT-OP-M Strength Start: 02/20/22 20:05 Freq: Status: Active Protocol: Document 06/12/22 08:17 LRN (Rec: 06/12/22 09:05 LRN [id number]) Shoulder Strength Shoulder Manual Muscle Testing Right Flexion 4 Good Abduction (C5) 2 Poor External Rotation 3 Fair Internal Rotation 3 Fair Left Flexion 4+ Good+ Adduction 4 Good External Rotation 4+ Good+ Internal Rotation 4+ Good+ PT-OP-Q Treatments Start: 02/20/22 20:05 Freq: Status: Active Protocol: Document 07/30/22 08:18 LRN (Rec: 07/30/22 09:03 LRN [id number]) Cardio Equipment Upper Body Ergometer (UBE) Duration (Minutes) 6 RPM 70 Seat Position 14 Height 3 Therapeutic Exercises Sitting Exercises L Ulnar n. glide Sitting Exercise Name Towel sliders Side right Reps/Minutes 4' Standing Exercises Wall lean to R Standing Exercise Name Wall lean to R. Side right Reps/Minutes 3x Comments Pt would stand on RLE > LLE afterwards each time to cause body to elevate L Scap Depression/Retraction Standing Exercise Name Lat pull down: Scap Depr/ Retract Side bilateral Equipment Used L2 Reps/Minutes 6' Comments Constant cuing to get L side to retract and down then both Scap Retraction Standing Exercise Name Scap Retraction Side bilateral Equipment Used L2 Reps/Minutes 4' Comments Constant cuing to get scap retract and Program Control Analyst Deltoid to contract Scapula Depression Standing Exercise Name Scap Depression Side bilateral Equipment Used L3 TB Reps/Minutes 6' Comments Constant cuing to infer border of scap Shoulder ER Standing Exercise Name Shoulder ER strengthening Side right Equipment Used Lev 2 TB Reps/Minutes 15x 2 Comments cues for slow, controlled eccentric Shoulder IR Standing Exercise Name Shoulder IR strengthening Side right Equipment Used Lev 2 TB Reps/Minutes 30x Comments cues for slow, controlled eccentric Self-Care/Home Management Treatment Education Patient Education Home Exercise Program Activities Self-Care/Home Management Activities Issued & reviewed HEP: Ulnar n towel slider and Ulnar n glide sitting (hand covering ear f/b elbow pull backwards). PT-OP-R Modalities Start: 02/20/22 20:05 Freq: Status: Active Protocol: Document 06/18/22 08:14 LRN (Rec: 06/18/22 16:39 LRN [id number]) Hot Pack/Cold Pack Treatment Cold Pack Location R shoulder Treatment Duration (minutes) 10 Patient Tolerance Good Comments Pt in reclined position, almost upright to limit dizziness with changes in positioning. PT-OP-T Assessment and Plan Start: 02/20/22 20:05 Freq: Status: Active Protocol: Document 07/30/22 08:18 LRN (Rec: 07/30/22 09:03 LRN [id number]) Physical Therapy Assessment Goals Four Impairment Decreased R shoulder ROM due to pain. Impairment R shoulder pain rated 6/10 at posterior to acromion process with movement. R shoulder AROM (sitting, in deg's): Flex 57, AB 42, ER 50 (0 deg's ER), IR reaching behind back to R PSIS. L shoulder AROM (sitting, in deg's): Flex 132, AB 150, ER 65 (0 deg's ER), IR reaching behind back to L4. Short Term Goal (STG) Improve ability to move the R shoulder with pt able to reach for feet with minimal R shoulder pain/discomfort. 04/26/22: Pt able to reach for feet with R shoulder, but L hip discomfort limits ability to tie shoes. 06/12/22: Tight in shoulder. STG Duration 05/25/22 (06/12/22: MET GOAL) [employer] Goal (LTG) Improve ability to move the R shoulder with pt able to reach overhead with minimal R shoulder pain/discomfort. 04/26/22: Reaching behind head: C2 Right; T2 Left 06/18/22: Pain when moving arms overhead or wrong is 6-7/ 10. LTG Duration 09/16/22 slow progress: Three Impairment R shoulder pain interrupting sleep at night. Impairment Wakes 2 times per night from R shoulder pain (rated 6/10), primarily when rolling on it. UE QuickDASH score 38.63 (20- 39% impaired) R shoulder strength: Flex 2+/ 5, AB 2/5, ER 4/5, IR 3+/5. L shldr is generally 5/5. Short Term Goal (STG) Improve UE QuickDASH score to 19 or less (1-19% impaired). 04/26/22: Minimal improvement , score 27 (20-39% impaired, score 20-39). 06/18/22: Woke with pain in R shoulder slept on it wrong. 07/30/22: UE Quickdash score 9 .09 (1-19% impaired, score 1- 19). STG Duration 08/02/22 (07/30/22: MET GOAL). [employer] Goal (LTG) Improve R shoulder strength with pt able to sleep longer with occasionally waking during the night, mostly without R shoulder pain. 04/26/22: No change. 06/18/22: Occasional pain when rolling on the R shoulder or if it gets caught under body or behind him, rated 6-7/10. 07/30/22: No shoulder pain sleeping for a week. LTG Duration 09/16/22 (07/30/22: MET GOAL ) Two Impairment L hip pain limiting functional movement and gait Impairment Intermittent L hip pain rated 5/10. Pt not able to don/doff socks independently. LEFS score 43/80 (40-59% impaired) Short Term Goal (STG) Pt will be able to walk without L anterior hip pain and improve function per LEFS score 49-62 (20-39% impaired). 04/26/22: No improvement, score 40 (40-59% impaired). 06/18/22: WAlking w/o front L hip pain and can put socks on w/o pain. STG Duration 05/25/22 06/18/22: MET GOAL [facility] Goal (LTG) Pt will be able to don/doff his L sock/shoes independently without or minimal L anterior hip pain, or demonstrate improved function per LEFS score greater than 62. 06/12/22: Pt reports being able to don/doff L sock/shoes independently without L anterior hip pain (LEFS not taken) LTG Duration 06/25/22 (06/12/22: MET GOAL) One Impairment Lacks appropriate self care HEP Short Term Goal (STG) Pt will be educated in best posturing for nighttime sleep and getting in/out of car. 03/13/22: Pt educated in best posturing for nighttime sleep for sidelie. 07/23/22: Educated pt in best posturing for getting in/out of car. STG Duration 08/02/22 (07/23/22: MET GOAL) [facility] Goal (LTG) Pt will be independent on a self care HEP to promote L hip mobility and strengthing in areas of deficit and L shoulder ROM/rotator cuff & scapular stabilizing exercises . 03/01/22: HEP: Fig 4 & lateral trunk shift stretch to R. 03/09/22: HEP: LE roll in/ out. 03/13/22: HEP: Clamshell & Hip AD strengthening 07/30/22: HEP: Ulnar n towel slider and Ulnar n glide sitting (hand covering ear f/b elbow pull backwards). LTG Duration 09/16/22 progressed 07/30/22 . Assessment Summary Assessment Improved function per UE Quickdash score 9.09 (1-19% impaired, score 1-19), initial was 34.09 (20-39% impaired, score 20-39). Pt getting better at not engaging UT's with shoulder ex's, but needs much cuing to start. Pt having trouble keeping UT's relaxed with Ulnar n sitting glide (hand covering ear f/b elbow pull backwards). Physical Therapy Plan Frequency and Duration Frequency of Treatment 2x/Week Plan of Care Start Date 06/18/22 Plan of Care End Date 09/16/22 Next Visit Focus/Plan Next Note Type Treatment Note Next Visit Plan Review issued HEP. R and L ULNT sliders over tensioner gliding ex's (try butterfly & ulnar n side walks). Assess for DC to HEP. Assess progress to LTG 4. HEP: R shoulder/scap stab ex's as needed. EX: ROM, and JMT for RC dysfunction. POC: R RC rehabilitation with caution for Supraspinatus.
--- NOTE | 2022-08-06 16:48 | PT.OTN ---
Current Diagnoses Pain in right shoulder (08/06/22) Pain in left hip (08/06/22) Muscle weakness (generalized) (08/06/22) Physical Therapy Treatment Note PT-OP-A Visit Information Start: 02/20/22 20:05 Freq: Status: Active Protocol: Document 08/06/22 08:16 LRN (Rec: 08/06/22 09:03 LRN [id number]) Out-Patient Physical Therapy Visit Information Visit Information Visit Type Treatment Note Visit Start Time 08:16 Visit Stop Time 09:00 Total Visit Minutes 44 Visit Number 16 total, Evaluation Information Evaluation Date 02/22/22 Precautions Precautions Uncontrolled very Low HR (36) > Low HR (60), Multiple Sclerosis, chronic back pain, Neuropathy, Dizziness, SOB, Controlled HBP , hx of A.Fib & Kidney stones. PT-OP-B Current Condition Start: 02/20/22 20:05 Freq: Status: Active Protocol: Document 03/13/22 08:16 LRN (Rec: 03/13/22 17:36 LRN [id number]) Current Condition History of Current Condition Onset Date ~12/04/21 L hip, ~12/18/21 R shoulder. Current Complaints Pain with movement at L hip and R shoulder. L hip worse than R shoulder. History of Current Condition Mid November got out of chair, and heard a pop in L hip, and felt severe pain inferior to the L ASIS. A week later was reaching up to grab something and heard a pop in the posterior R shoulder. Pt indicated pain was posterior to the acromion process. Pt denies bruising. Pt reports with walking there is pain in the L anterior hip on stance phase while shifting onto RLE. He can knot picker cloth heavy things off the floor with his R shoulder, but has pain with moving the arm away from the body out to the side and fwd ~ 80 deg's. Pain is stabbing and sharp in nature. Pt requests focus of therapy on R hip to start. Prior Treatments and Tests X-rays: Unremarkable. 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 Attenuated labrum with signal abnormality . PT-OP-C Subjective Start: 02/20/22 20:05 Freq: Status: Active Protocol: Document 08/06/22 08:16 LRN (Rec: 08/06/22 09:03 LRN [id number]) OP-PT Subjective Patient Comments Patient Comments Worked on weekend building plantar boxes and did some overhead. Patient Questionnaires Lower Extremity Functional Scale LEFS Score 73 LEFS Impairment 1 to 19% Impaired (Score 63-79 ) Quick Dash- Upper Extremity Quick Dash UE Score 2.27 Quick Dash UE Impairment 1 to 19% Impaired (Score 1-19) PT-OP-D Balance Start: 02/20/22 20:05 Freq: Status: Active Protocol: Document 02/22/22 08:16 LRN (Rec: 02/22/22 18:59 LRN [id number]) Balance Tests Single Limb Standing Single Limb- Right 2 secs Single Limb- Left 1-4 secs PT-OP-E Functional Tests Start: 02/20/22 20:05 Freq: Status: Active Protocol: Document 08/06/22 08:16 LRN (Rec: 08/06/22 09:03 LRN [id number]) Functional Tests Apley's Scratch Test Action 1- Left Posterior shoulder below scapular spine Action 1- Right Posterior shoulder at scapular spine Action 2- Left T2 Action 2- Right T2 Action 3- Left T12 Action 3- Right L3 PT-OP-G Mobility & Gait Start: 02/20/22 20:05 Freq: Status: Active Protocol: Document 02/22/22 08:16 LRN (Rec: 02/22/22 18:59 LRN [id number]) OP Mobility Evaluation Transfers Sit to Stand Independent with use of L UE's to help push at knee. Bed to Chair Transfers Independent with pain and use of UE's Car Transfers Inpependent with pain, but has much difficulty using a van ( getting in, really hurts; R shoulder hurts shifting car with automatic - lifting lever ; can't lift cup of water due to not able to lift with arm out to the side). OP Gait Assessment Comments Gait Comments Lacks hip shift L, Trunk shifted R with lean to R. PT-OP-H Neuro Start: 02/20/22 20:05 Freq: Status: Active Protocol: Document 02/22/22 08:16 LRN (Rec: 02/22/22 18:59 LRN [id number]) Sensation Evaluation Gross Sensation Gross Sensation WNL PT-OP-J Posture/Palpation/Skin Start: 02/20/22 20:05 Freq: Status: Active Protocol: Document 02/22/22 08:16 LRN (Rec: 02/22/22 18:59 LRN [id number]) Posture Evaluation Position Standing Head/C-Spine Posture Side Bent Right,Forward Head L-Spine Posture Flattened,Shifted Right Shoulder Posture (L) Elevated Scapula Posture (R) Depressed Weight Distribution Weight Shifted Left Comments Posture Comments Sits with RLE extended. Palpation Assessment Location L hip Palpation Location L hip medial to ASIS and at TFL Palpation Findings Tenderness R shoulder Palpation Location R Subscapular attachment at GHJ Palpation Findings Tenderness PT-OP-K Range of Motion Start: 02/20/22 20:05 Freq: Status: Active Protocol: Document 08/06/22 08:16 LRN (Rec: 08/06/22 09:03 LRN [id number]) Shoulder Goniometric Range of Motion Shoulder Right Active Testing Position Standing Flexion 145 Extension 60 Abduction 157 Comments AB is w/in scapular plane Left Active Testing Position Standing Flexion 146 Extension 40 Abduction 180 Comments AB is w/in scapular plane PT-OP-L Special Tests Start: 02/20/22 20:05 Freq: Status: Active Protocol: Document 02/26/22 09:02 LRN (Rec: 02/26/22 12:41 LRN [id number]) Special Tests Lumbar Spine Special Tests Straight Leg Raise Test Results + PSLR - 60 deg's Comments Hamstring tight Hip Special Tests Piriformis Test Results - left Stinchfield Resisted Hip Flexion Test Results + left Scour Test Test Results + left Log Roll Test Test Results + left ISA Test Results + left Comments Painful in anterior hip with positioning Posterior Labral Test Test Results + left Anterior Labral Test Test Results + left PT-OP-M Strength Start: 02/20/22 20:05 Freq: Status: Active Protocol: Document 06/12/22 08:17 LRN (Rec: 06/12/22 09:05 LRN [id number]) Shoulder Strength Shoulder Manual Muscle Testing Right Flexion 4 Good Abduction (C5) 2 Poor External Rotation 3 Fair Internal Rotation 3 Fair Left Flexion 4+ Good+ Adduction 4 Good External Rotation 4+ Good+ Internal Rotation 4+ Good+ PT-OP-Q Treatments Start: 02/20/22 20:05 Freq: Status: Active Protocol: Document 08/06/22 08:16 LRN (Rec: 08/06/22 09:03 LRN [id number]) Cardio Equipment Upper Body Ergometer (UBE) Duration (Minutes) 7 RPM 70 Seat Position 14 Height 3 Therapeutic Exercises Supine Exercises Ulnar n glides Supine Exercise Name Palm over ear (forarm neut/ pron retract elbow: head neutral>L rot>neutral Side right Reps/Minutes 8x each, 2 sets. Lat Pull Down Supine Exercise Name Lat pull Down Side bilateral Equipment Used L3 TB Reps/Minutes 15x 2 Sitting Exercises Active Shoulder Flex/AB Sitting Exercise Name Active shoulder flex/AB AROM and Shawna hold Comments MMT and ROM taken L Ulnar n. glide Sitting Exercise Name Towel sliders Side right Reps/Minutes 4' Nerve gliding Sitting Exercise Name Wrist/finger ext - arm by side and out 30 deg's Reps/Minutes 3' Active Shoulder ER/IR Sitting Exercise Name Active shoulder ER/IR AROM and Shawna hold Side bilateral Comments MMT and ROM taken Standing Exercises Ulnar n glide Standing Exercise Name Butterfly ex: moving elbows fwd/bkwd Side bilateral Reps/Minutes 10x Comments Extra time taken to determine max betsey mvmt and cuing of R scap for depr/ret Wall lean to R Standing Exercise Name Trunk shift to right with manual assist Side right Reps/Minutes x 1 Comments Later pt c/o bilateral SIJ pain. Self-Care/Home Management Treatment Education Patient Education Home Exercise Program Activities Self-Care/Home Management Activities Issued & reviewed HEP: Ulnar nerve glide: butterfly ex. PT-OP-R Modalities Start: 02/20/22 20:05 Freq: Status: Active Protocol: Document 06/18/22 08:14 LRN (Rec: 06/18/22 16:39 LRN [id number]) Hot Pack/Cold Pack Treatment Cold Pack Location R shoulder Treatment Duration (minutes) 10 Patient Tolerance Good Comments Pt in reclined position, almost upright to limit dizziness with changes in positioning. PT-OP-T Assessment and Plan Start: 02/20/22 20:05 Freq: Status: Active Protocol: Document 08/06/22 08:16 LRN (Rec: 08/06/22 09:03 LRN [id number]) Physical Therapy Assessment Goals Four Impairment Decreased R shoulder ROM due to pain. Impairment R shoulder pain rated 6/10 at posterior to acromion process with movement. R shoulder AROM (sitting, in deg's): Flex 57, AB 42, ER 50 (0 deg's ER), IR reaching behind back to R PSIS. L shoulder AROM (sitting, in deg's): Flex 132, AB 150, ER 65 (0 deg's ER), IR reaching behind back to L4. Short Term Goal (STG) Improve ability to move the R shoulder with pt able to reach for feet with minimal R shoulder pain/discomfort. 04/26/22: Pt able to reach for feet with R shoulder, but L hip discomfort limits ability to tie shoes. 06/12/22: Tight in shoulder. STG Duration 05/25/22 (06/12/22: MET GOAL) [employer] Goal (LTG) Improve ability to move the R shoulder with pt able to reach overhead with minimal R shoulder pain/discomfort. 04/26/22: Reaching behind head: C2 Right; T2 Left 06/18/22: Pain when moving arms overhead or wrong is 6-7/ 10. 08/06/22: No pain with overhead activities over the weekend. LTG Duration 09/16/22 (07/30/22: MET GOAL ). Three Impairment R shoulder pain interrupting sleep at night. Impairment Wakes 2 times per night from R shoulder pain (rated 6/10), primarily when rolling on it. UE QuickDASH score 38.63 (20- 39% impaired) R shoulder strength: Flex 2+/ 5, AB 2/5, ER 4/5, IR 3+/5. L shldr is generally 5/5. Short Term Goal (STG) Improve UE QuickDASH score to 19 or less (1-19% impaired). 04/26/22: Minimal improvement , score 27 (20-39% impaired, score 20-39). 06/18/22: Woke with pain in R shoulder slept on it wrong. 07/30/22: UE Quickdash score 9 .09 (1-19% impaired, score 1- 19). STG Duration 08/02/22 (07/30/22: MET GOAL). Skilled Nursing Goal (LTG) Improve R shoulder strength with pt able to sleep longer with occasionally waking during the night, mostly without R shoulder pain. 04/26/22: No change. 06/18/22: Occasional pain when rolling on the R shoulder or if it gets caught under body or behind him, rated 6-7/10. 07/30/22: No shoulder pain sleeping for a week. LTG Duration 09/16/22 (07/30/22: MET GOAL ) Two Impairment L hip pain limiting functional movement and gait Impairment Intermittent L hip pain rated 5/10. Pt not able to don/doff socks independently. LEFS score 43/80 (40-59% impaired) Short Term Goal (STG) Pt will be able to walk without L anterior hip pain and improve function per LEFS score 49-62 (20-39% impaired). 04/26/22: No improvement, score 40 (40-59% impaired). 06/18/22: WAlking w/o front L hip pain and can put socks on w/o pain. STG Duration 05/25/22 06/18/22: MET GOAL [employer] Goal (LTG) Pt will be able to don/doff his L sock/shoes independently without or minimal L anterior hip pain, or demonstrate improved function per LEFS score greater than 62. 06/12/22: Pt reports being able to don/doff L sock/shoes independently without L anterior hip pain (LEFS not taken) LTG Duration 06/25/22 (06/12/22: MET GOAL) One Impairment Lacks appropriate self care HEP Short Term Goal (STG) Pt will be educated in best posturing for nighttime sleep and getting in/out of car. 03/13/22: Pt educated in best posturing for nighttime sleep for sidelie. 07/23/22: Educated pt in best posturing for getting in/out of car. STG Duration 08/02/22 (07/23/22: MET GOAL) Skilled Nursing Goal (LTG) Pt will be independent on a self care HEP to promote L hip mobility and strengthing in areas of deficit and L shoulder ROM/rotator cuff & scapular stabilizing exercises . 03/01/22: HEP: Fig 4 & lateral trunk shift stretch to R. 03/09/22: HEP: LE roll in/ out. 03/13/22: HEP: Clamshell & Hip AD strengthening 07/30/22: HEP: Ulnar n towel slider and Ulnar n glide sitting (hand covering ear f/b elbow pull backwards). 08/06/22: HEP: R and L ULNT gliding ex (butterfly). LTG Duration 09/16/22 (08/06/22: MET GOAL) Assessment Summary Assessment Pt presents today after spending a weekend building plantar boxes without complaints of R shoulder pain. He is able to reach overhead with functional mobility with minimal discomfort. His initial R impingment syndrome from probably of the supraspinatus no longer appears to be causing pain. His L hip no longer has any noticeable discomfort. He shows good understanding of his HEP last issued. He is able to dress (socks/shoes) without pain. The pt is familiar with his HEP and is ready to be placed on a self care HEP. Physical Therapy Plan Discharge Physical Therapy Discharge Reasons Goals Met Discharge Comments Thank you for your referral.
== END 2022-08-09 14:20 | disposition home or self-care (01) ==
LOC: PHYS 08:15
PROVIDERS: Family Provider Family Medicine; PCP Family Medicine; Referring Provider Family Medicine; Visit Provider Family Medicine
DX: M25.511 Pain in right shoulder (principal); M25.552 Pain in left hip; M62.81 Muscle weakness (generalized)
CPT/HCPCS: 97110; 97140; 97162; 97535

== ENCOUNTER → 2022-08-13 08:16 | Outpatient (CLI) | payer MEDICARE, SELFPAY ==
[2022-08-13 09:16] LABS: Alanine Aminotransferase 27 IU/L (<50); Albumin 3.8 g/dL (3.5-5.0); Albumin Globulin Ratio 1.3 (1.0-2.8); Alkaline Phosphatase 64 U/L (38-126); Aspartate Aminotransferase 21 IU/L (17-59); Bilirubin Total 0.9 mg/dL (0.2-1.3); Blood Urea Nitrogen 25 mg/dL (9-20); Calcium 8.9 mg/dL (8.4-10.2); Carbon Dioxide 25 mmol/L (22-32); Chloride 107 mmol/L (98-107); Cholesterol 144 mg/dL (140-199); Estimated Glomerular Filt Rate > 60 mL/min (>60); Globulin 2.9 g/dL (1.7-4.1); Glucose 144 mg/dL (80-110); HDL Cholesterol 34 mg/dL (40-60); HEMOLYSIS < 15 (0-50); LDL Cholesterol Calculated 61 mg/dL (<100); Potassium 4.1 mmol/L (3.4-5.1); Sodium 138 mmol/L (137-145); Total Protein 6.7 g/dL (6.3-8.2); Triglycerides 245 mg/dL (35-150)
[2022-08-14 08:37] LABS: x Labcorp Estim. Avg Glu (eAG) 148 mg/dL (.); x Labcorp Hemoglobin A1c 6.8 % (4.8-5.6)
== END ==
PROVIDERS: Family Provider Family Medicine; PCP Family Medicine; Referring Provider Family Medicine; Visit Provider Family Medicine
DX: E78.2 Mixed hyperlipidemia; I10 Essential (primary) hypertension; E11.9 Type 2 diabetes mellitus without complications
CPT/HCPCS: 36415; 80053; 80061; 83036

== ENCOUNTER → 2023-02-02 10:23 | Outpatient (CLI) | payer MEDICARE, SELFPAY ==
[2023-02-02 11:07] LABS: Add Manual Diff / Slide Review NO; Basophils Absolute Auto 100 /uL (0-100); Basophils Percent Auto 1.1 % (0-2); Eosinophils Absolute Auto 200 /uL (0-450); Hematocrit 38.6 % (41-53); Hemoglobin 12.9 g/dL (13.5-17.5); Lymphocytes Absolute Auto 1500 /uL (1100-4500); Lymphocytes Percent Auto 27.2 % (25-40); Mean Corpuscular HGB Conc 33.4 % (30-36); Mean Corpuscular Hemoglobin 30.6 PG (26-34); Mean Corpuscular Volume 91.6 fL (80-100); Monocytes Absolute Auto 700 /uL (0-900); Monocytes Percent Auto 13.4 % (3-14); Neutrophils Absolute Auto 3000 /uL (1500-7000); Neutrophils Percent Auto 54.3 % (50-75); Platelet Count 181 X10^3/uL (150-400); Red Blood Cell Count 4.21 X10^6/uL (4.5-5.9); Red Cell Distribution Width 12.8 % (11.6-14.8); White Blood Cell Count 5.6 X10^3/uL (4.5-11.0)
[2023-02-02 12:12] LABS: Alanine Aminotransferase 18 IU/L (<50); Albumin 3.9 g/dL (3.5-5.0); Albumin Globulin Ratio 1.3 (1.0-2.8); Alkaline Phosphatase 59 U/L (38-126); Aspartate Aminotransferase 16 IU/L (17-59); BUN Creatinine Ratio 15.2 (6-22); Bilirubin Total 0.8 mg/dL (0.2-1.3); Blood Urea Nitrogen 19 mg/dL (9-20); Calcium 9.8 mg/dL (8.4-10.2); Carbon Dioxide 28 mmol/L (22-32); Chloride 102 mmol/L (98-107); Cholesterol 142 mg/dL (140-199); Estimated Glomerular Filt Rate 60 mL/min (>60); Globulin 3.1 g/dL (1.7-4.1); Glucose 154 mg/dL (80-110); HDL Cholesterol 36 mg/dL (40-60); HEMOLYSIS < 15 (0-50); LDL Cholesterol Calculated 64 mg/dL (<100); Potassium 4.7 mmol/L (3.4-5.1); Sodium 139 mmol/L (137-145); Triglycerides 208 mg/dL (35-150)
[2023-02-02 12:13] LABS: Creatinine Urine Random 271.7 mg/dL
[2023-02-02 12:15] LABS: Microalbumi Creatinin Ratio Ur 3.3 ug/mg CR (<30); Microalbumin Urine Random 0.9 mg/dL (0-1.6)
[2023-02-02 13:18] LABS: TSH w/ Reflex to FT4 0.31 uIU/mL (0.47-4.68)
[2023-02-02 15:48] LABS: Hemoglobin A1C% w Est Avg Glu 6.3 % (4.0-6.0)
[2023-02-02 16:19] LABS: Free T4, Direct Thyroxine 1.38 ng/dL (0.78-2.19)
== END ==
PROVIDERS: Family Provider Family Medicine; PCP Family Medicine; Referring Provider Family Medicine; Visit Provider Family Medicine
DX: E11.9 Type 2 diabetes mellitus without complications (principal); E03.9 Hypothyroidism, unspecified; E78.2 Mixed hyperlipidemia; I10 Essential (primary) hypertension
CPT/HCPCS: 36415; 80053; 80061; 82043; 82570; 83036; 84439; 84443; 85025

== ENCOUNTER → 2023-09-30 09:17 | Outpatient (CLI) | payer MEDICARE, SELFPAY ==
[2023-09-30 10:46] LABS: BUN Creatinine Ratio 17.1 (6-22); Blood Urea Nitrogen 27 mg/dL (9-20); Carbon Dioxide 24 mmol/L (22-32); Chloride 110 mmol/L (98-107); Estimated Glomerular Filt Rate 45 mL/min (>60); Glucose 137 mg/dL (80-110); HEMOLYSIS < 15 (0-50); Potassium 5.1 mmol/L (3.4-5.1); Sodium 140 mmol/L (137-145)
== END ==
PROVIDERS: Family Provider Family Medicine; PCP Family Medicine; Referring Provider Internal Medicine Cardiovascular Disease; Visit Provider Internal Medicine Cardiovascular Disease
DX: I49.3 Ventricular premature depolarization (principal)
CPT/HCPCS: 36415; 80048

== ENCOUNTER → 2023-11-02 09:59 | Outpatient (CLI) | payer MEDICARE, SELFPAY ==
[2023-11-02 10:49] LABS: Hemoglobin A1C% w Est Avg Glu 6.3 % (4.0-6.0)
[2023-11-02 11:10] LABS: Alanine Aminotransferase 27 IU/L (<50); Albumin Globulin Ratio 1.3 (1.0-2.8); Alkaline Phosphatase 56 U/L (38-126); Aspartate Aminotransferase 22 IU/L (17-59); BUN Creatinine Ratio 15.8 (6-22); Bilirubin Total 0.7 mg/dL (0.2-1.3); Blood Urea Nitrogen 23 mg/dL (9-20); Calcium 9.2 mg/dL (8.4-10.2); Carbon Dioxide 25 mmol/L (22-32); Chloride 108 mmol/L (98-107); Estimated Glomerular Filt Rate 50 mL/min (>60); Glucose 147 mg/dL (80-110); HEMOLYSIS < 15 (0-50); Potassium 4.9 mmol/L (3.4-5.1); Sodium 138 mmol/L (137-145)
[2023-11-02 11:11] LABS: Creatinine Urine Random 106.14 mg/dL
[2023-11-02 11:21] LABS: Microalbumin Urine Random < 0.6 mg/dL (0-1.6)
== END ==
LOC: LAB 09:59
PROVIDERS: Family Provider Family Medicine; PCP Family Medicine; Referring Provider Family Medicine; Visit Provider Family Medicine
DX: N40.0 Benign prostatic hyperplasia without lower urinary tract symptoms (principal); E11.9 Type 2 diabetes mellitus without complications; I10 Essential (primary) hypertension
CPT/HCPCS: 36415; 80053; 82043; 82570; 83036

== ENCOUNTER → 2025-01-16 09:43 | Outpatient (CLI) | payer MEDICARE, SELFPAY ==
[2025-01-16 11:54] LABS: Alanine Aminotransferase 25 IU/L (<50); Albumin 4.3 g/dL (3.5-5.0); Albumin Globulin Ratio 1.5 (1.0-2.8); Alkaline Phosphatase 66 U/L (38-126); Blood Urea Nitrogen 22 mg/dL (9-20); Calcium 9.5 mg/dL (8.4-10.2); Carbon Dioxide 24 mmol/L (22-32); Chloride 105 mmol/L (98-107); Cholesterol 147 mg/dL (140-199); Estimated Glomerular Filt Rate 58 mL/min (>60); Globulin 2.9 g/dL (1.7-4.1); Glucose 150 mg/dL (70-99); HDL Cholesterol 38 mg/dL (40-60); HEMOLYSIS < 15 (0-50); Magnesium 1.9 mg/dL (1.6-2.3); Potassium 4.7 mmol/L (3.4-5.1); Sodium 137 mmol/L (137-145); Total Protein 7.2 g/dL (6.3-8.2); Triglycerides 321 mg/dL (35-150)
[2025-01-16 12:22] LABS: TSH w/ Reflex to FT4 0.89 uIU/mL (0.47-4.68)
== END ==
PROVIDERS: Family Provider Family Medicine; PCP Family Medicine; Referring Provider Nurse Practitioner Acute Care; Visit Provider Nurse Practitioner Acute Care
DX: Z51.81 Encounter for therapeutic drug level monitoring (principal); Z79.899 Other long term (current) drug therapy
CPT/HCPCS: 36415; 80053; 80061; 83735; 84443